=== PATIENT | male | born 1935 | race Caucasian/White ===

== ENCOUNTER → 2016-08-30 | Outpatient (CLI) | payer OTHER ==
[~2016-08-30] MED LIST: ASPI81TA28 PO; CLC/300 PO; COEN75CA PO; FOLI1TAB8 PO; LATA0.009 OPB; LATA0.5S OP; OMEG10007 PO; SACC250C3 PO; SIMV20TA2 PO; TPRSR/25 PO; ZINC1CAP PO
[2016-08-30 14:00] LABS: BLOOD UREA NITROGEN 22 mg/dl (7-18); BUN/CREATININE RATIO 22.4 (10-20); CREATININE 0.96 mg/dl (0.60-1.40)
== END | disposition home or self-care (01) ==
LOC: C.LAB1850 12:26
PROVIDERS: ATTEND Urology
DX: N41.9 Inflammatory disease of prostate, unspecified (principal); R31.9 Hematuria, unspecified

== ENCOUNTER → 2016-09-06 | Outpatient (CLI) | payer OTHER ==
[~2016-09-06] MED LIST changes: +FOLI1TAB7 PO; -FOLI1TAB8 PO; +OPTIRAY 320 IV PRN
--- NOTE | 2016-09-06 11:46 | DIAGNOSTIC IMAGING REPORT ---
CT ABD/PELVIS COMBO CLINICAL HISTORY: Hematuria. COMPARISON STUDY: None. TECHNIQUE: Unenhanced images were obtained through the abdomen and pelvis. The patient was then injected with 50 cc of Optiray 320. After 5 minute delay, the patient is rescanned in a dynamic helical fashion during the additional administration of 67 cc of Optiray 320. CT DOSE: 873.25 mGy.cm FINDINGS: Lower chest: There is minor lower lobe cylindrical bronchiectasis. There are bibasal atelectatic changes. Liver: The contrast-enhanced liver is normal in size, contour, and attenuation. There is no intrahepatic biliary ductal dilatation. The hepatic veins and portal veins are patent. Gallbladder: Unremarkable. Spleen: Normal in size and attenuation. Pancreas: Unremarkable. Adrenal glands: Unremarkable. Kidneys: There are multiple parapelvic cysts. There are multiple cortical cysts, the largest of which on the right measures 27 mm. There is a 13 mm hyperdense upper pole left renal cyst. There is an 11 mm enhancing upper pole left renal mass. This may be neoplastic. There is a 14 mm exophytic enhancing mass arising from the lower pole the left kidney. A small neoplasm is again the diagnosis of exclusion. No renal calculi are visualized. No ureteral or bladder calculi are visualized. The collecting systems are distorted by the parapelvic cysts. No collecting system or ureteral masses are visualized. Bowel: There are no transition zone to indicate bowel obstruction. There is no evidence of acute diverticulitis. There is no evidence of acute appendicitis. Peritoneum: There is no intraperitoneal free air or abdominal ascites. There are postsurgical changes are prior right inguinal hernia repair. Vasculature: The abdominal aorta is normal in course and caliber. Adenopathy: None. Pelvic viscera: The prostate is enlarged measuring 58 mm in diameter. The bladder was contracted the time of scanning. There is a lobulated median lobe of the prostate indenting the bladder base. Skeletal structures: No destructive osseous lesions are seen. IMPRESSION: 1. No renal, ureteral, or bladder calculi identified 2. Multiple renal cysts and parapelvic cysts 3. There are 2 solid enhancing left renal masses. A 13 mm upper pole mass and 14 mm lower pole mass. Small neoplasms are suspected 4. Prostate enlargement Electronically signed by: Lee Carrillo M.D. 09/06/2016 11:44 AM Dictated Date/Time: 09/06/2016 11:32 AM
== END | disposition home or self-care (01) ==
LOC: C.CTS 10:45
PROVIDERS: ATTEND Urology
DX: R31.9 Hematuria, unspecified (principal); N28.1 Cyst of kidney, acquired; N28.89 Other specified disorders of kidney and ureter; N40.0 Benign prostatic hyperplasia without lower urinary tract symptoms

== ENCOUNTER → 2017-04-04 | Outpatient (CLI) | payer OTHER ==
[~2017-04-04] MED LIST changes: -OPTIRAY 320 IV PRN
[2017-04-04 17:00] LABS: BLOOD UREA NITROGEN 20 mg/dl (7-18); BUN/CREATININE RATIO 16.7 (10-20)
== END | disposition home or self-care (01) ==
LOC: C.LAB 16:02
PROVIDERS: ATTEND Urology
DX: R97.20 Elevated prostate specific antigen [PSA] (principal); N28.89 Other specified disorders of kidney and ureter

== ENCOUNTER → 2017-04-18 | Outpatient (CLI) | payer OTHER ==
[~2017-04-18] MED LIST changes: +OPTIRAY 320 IV PRN
--- NOTE | 2017-04-18 09:39 | DIAGNOSTIC IMAGING REPORT ---
KIDNEY (ABDOMEN) COMBO CLINICAL HISTORY: 81 years-old Male presenting with solid enhancing left renal masses at the upper and lower poles, follow-up. TECHNIQUE: Multidetector CT of the abdomen was performed before and after administration of intravenous contrast. Oral contrast was also administered. IV contrast: 94 mL of Optiray 320. A dose lowering technique was used consistent with the principles of ALARA (as low as reasonably achievable). COMPARISON: 09/16/2016. CT DOSE (mGy.cm): The estimated cumulative dose is 2238.29 mGycm. 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 Lung bases: Dependent changes likely atelectasis. Few pulmonary cyst noted right lower lobe mild multichamber enlargement of the heart. Coronary artery calcification. No pericardial or pleural effusion. Liver: Normal morphology. Normal density. Hypodense lesion in the gallbladder fossa measuring approximately 1 cm is not apparent on delayed imaging, likely suggesting a benign hemangioma. Patent hepatic vasculature. Biliary: No intrahepatic or extrahepatic biliary ductal dilatation. Normal gallbladder. Pancreas: 6 mm hypodense lesion in the pancreatic head may represent focal fatty invagination or small cystic lesion such as a mucinous cyst or side branch intraductal papillary mucinous neoplasm. No pancreatic ductal dilatation. Spleen: Normal. Adrenal glands: Normal. Kidneys and ureters: Multiple well-defined hypodensities in the renal parenchyma bilaterally likely simple cysts. Additionally, previously noted suspicious left renal lesions again visualized. At the left upper pole a 15 mm lesion is mildly hyperdense on precontrast imaging and may minimally enhance postcontrast. More significantly at the medial aspect of the lower pole is a slightly exophytic 14 mm lesion with convincing evidence of enhancement and washout on delayed postcontrast phases. Neither of these lesions has significantly changed in size since the prior exam. No vascular invasion or perinephric infiltration. Multiple left parapelvic cysts noted. No nephrolithiasis. No filling defect within the collecting systems. No hydronephrosis. Gastrointestinal tract: Normal. No bowel obstruction. Peritoneal cavity: No free fluid or intraperitoneal gas. Vasculature: Atherosclerosis of the normal caliber abdominal aorta. IVC patent. Lymph nodes: Multiple subcentimeter nonspecific prominent nodes in the portacaval region. Few subcentimeter left periaortic lymph nodes. These lymph nodes are not pathologically enlarged by CT size criteria. Abdominal wall: Normal. Musculoskeletal: Degenerative changes of the spine. IMPRESSION: 1. Two previous identified left renal lesions, at least one of which represents a solid enhancing neoplasm most concerning for renal cell carcinoma at the lower pole of the left kidney. This is unchanged in size from prior. Continued surveillance versus surgical consultation recommended. The upper pole left renal lesion is mildly hyperdense on precontrast imaging and has questionable enhancement. Alternative diagnostic considerations include a hemorrhagic or proteinaceous cyst for this lesion. 2. No pathologically enlarged lymph nodes by CT size criteria. Electronically signed by: Ulises Padilla M.D. 04/18/2017 9:38 AM Dictated Date/Time: 04/18/2017 9:28 AM
== END | disposition home or self-care (01) ==
LOC: C.CTS 08:49
PROVIDERS: ATTEND Urology
DX: D41.02 Neoplasm of uncertain behavior of left kidney (principal); I70.0 Atherosclerosis of aorta

== ENCOUNTER 2017-06-02 09:15 | Emergency (ER) | payer OTHER ==
[~2017-06-02] VITALS: Ht 182.9 cm; Wt 85.0 kg
[~2017-06-02 09:15] MED LIST changes: -CLC/300 PO; -LATA0.5S OP; -OPTIRAY 320 IV PRN; -SACC250C3 PO
[2017-06-02 09:25] VITALS: TEMP 36.5; Ht 182.9 cm; Wt 85.0 kg
[2017-06-02] MEDS ORDERED: LATA0.5S OP (09:30)
--- NOTE | 2017-06-02 09:49 | EMERGENCY ROOM VISIT NOTE ---
History Report prepared by Porter: John Alvarez Under the Supervision of: Dr. Jorgito Brenner M.D. First contact with patient: 09:35 Chief Complaint: FINGER PAIN Stated Complaint: INDEX FINGER LEFT HAND History of Present Illness The patient is a 81 year old male who presents to the Emergency Room with complaints of worsening left index finger pain that began 2.5 months ago. At this time, the patient had an injury to this finger from what he believes to be a thorn. He was seen by an orthopedist 1 month ago due to persistent symptoms and was placed on antibiotics. Since then, he notes a red protrusion from the wound site. Since last week, his protrusion has become bigger. He notes some bleeding intermittently from the site as well based on if he uses the finger or not. He denies any other abnormal symptoms such as f/c, fatigue, n/v, CP, Sob,. He has been covering it during the day, and letting it breathe over night. However, since the protrusion has gotten worse, he has been covering it constantly. He denies any blood thinner use. He only takes a baby aspirin. Source of History: patient Onset: 2.5 months ago Position: finger(s) (left index finger) Symptom Intensity: moderate Quality: other (Red protrusion) Timing: worsening Associated Symptoms: No fevers, No chills, No cough, No nausea, No vomiting , No rash Review of Systems See HPI for pertinent positives and negatives. A total of ten systems were reviewed and were otherwise negative. Past Medical & Surgical Medical Problems: (1) No Known Active Medical Problems Family History Omitted secondary to the patient's age. Social History Smoking Status: Never Smoker Smokeless Tobacco Use: No Drug Use: none Marital Status: Housing Status: lives with significant other Occupation Status: retired Current/Historical Medications Scheduled Aspirin (Aspirin Ec), 81 MG PO QAM Clindamycin HCl (Clindamycin HCl), 2 CAP PO TID Fish Oil (Magnolia-3), 1 CAP PO QAM Folic Acid (Folvite), 1 MG PO QAM Latanoprost (Xalatan 0.005% Oph Jesusita), 1 DROPS OP HS Metoprolol Succinate (Metoprolol Succinate ER), 25 MG PO QAM Saccharomyces Boulardii (Florastor), 1 CAP PO BID Simvastatin (Zocor), 20 MG PO QPM Zinc Sulfate (Zinc Sulfate), 220 MG PO DAILY Allergies Coded Allergies: Bacitracin (Verified Allergy, Intermediate, RASH, 06/02/17) Neomycin (Verified Allergy, Intermediate, RASH, 06/02/17) Polymyxin B (Verified Allergy, Intermediate, RASH, 06/02/17) Physical Exam Vital Signs Date Time Temp Pulse Resp B/P (MAP) Pulse Ox O2 Delivery O2 Flow Rate FiO2 06/02/17 13:30 67 16 138/81 98 06/02/17 11:07 61 16 142/82 98 Room Air 06/02/17 09:25 36.5 70 16 140/91 97 Room Air Physical Exam GENERAL: Awake, alert, well-appearing, in no distress HENT: Normocephalic, atraumatic. Oropharynx unremarkable. EYES: Normal conjunctiva. Sclera non-icteric. NECK: Supple. No nuchal rigidity. FROM. No JVD. RESPIRATORY: Clear to auscultation. CARDIAC: Regular rate, normal rhythm. Extremities warm and well perfused. Pulses equal. ABDOMEN: Soft, non-distended. No tenderness to palpation. No rebound or guarding. No masses. RECTAL: Deferred. MUSCULOSKELETAL: Chest examination reveals no tenderness. The back is symmetrical on inspection without obvious abnormality. There is no CVA tenderness to palpation. No joint edema. UPPER EXTREMITIES: The left 2nd mid-phalanx has a 1 cm herniation of granulation tissue volar surface. There is no surrounding erythema, warmth, purulent discharge, or crepitus. Full ROM. Capillary refill is brisk. Distal motor sensory is intact. LOWER EXTREMITIES: Calves are equal size bilaterally and non-tender. No edema. No discoloration. NEURO: Normal sensorium. No sensory or motor deficits noted. SKIN: No rash or jaundice noted. Medical Decision & Procedures ER Provider Diagnostic Interpretation: Radiology results as stated below per my review and radiologist interpretation: LEFT SECOND FINGER RADIOGRAPHS CLINICAL HISTORY: Redness swelling, evaluate for osseous involvement. COMPARISON: None FINDINGS: There is mild soft tissue swelling with apparent soft tissue nodule of the second finger at the level of the mid aspect of the proximal phalanx. There is subtle cortical irregularity and lucency within the medial cortex of the mid to distal shaft of the proximal phalanx of the left second finger. There is no soft tissue gas. IMPRESSION: Soft tissue swelling with soft tissue nodule of the left second digit with apparent associated cortical irregularity and lucency of the proximal phalanx. The findings suggest osseous involvement. An infectious process such as osteomyelitis is favored although a neoplastic process could appear similar. Electronically signed by: Byron Sutton M.D. 06/02/2017 11:09 AM Dictated Date/Time: 06/02/2017 11:04 AM ED Course 0935: The patient was evaluated in room B10. A complete history and physical exam was performed. 1038: I will be calling orthopedics to discuss the case with them further. 1200: Orthopedics has still not returned my call, I will attempt to contact dermatology. 1300: I was successful in obtaining an appointment for the patient on Monday with dermatology. 1328: I discussed the patient's results with him and his at this time. I explained that the radiology study showed bony involvement of his finger. I explained that there are no signs of infection, but to cover all of our bases, I will prescribe him an antibiotic. He will take that until a formal diagnosis can be obtained. Throughout the patient's evaluation his gradually became more displeased. I attempted to explain our delays with speaking to consultants today and getting a plan together. I encouraged her to contact the hospital patient advocate if she would like to complain and she thinks she will do this. I highlighted that we have an effective plan in place, which includes prompt dermatology f/u. I further discussed return instructions for the development of any infectious sx, and also explained that upon further evaluation, including biopsy, the patient may be scheduled for a surgical procedure given the bony involvement. 1330: I reevaluated the patient. Discussed results and discharge instructions: He verbalized understanding and agreement. The patient is ready for discharge. Medical Decision I reviewed the patient's past medical history, medications, and the nursing notes as described above. Differential diagnoses include cellulitis, abscess, granulation tissue, and osteomyelitis. Patient is an 81-year-old gentleman with a past nuchal history of a recent finger infection after being stuck by a foreign 2.5 months ago seen by you [facility] one month ago and was given a course of antibiotics with some improvement however shortly thereafter developed a tissue lesion that has grown over the past month for history of present illness. In arrival the patient is well- appearing, in no acute distress, afebrile stable vital signs. Patient reports that they had an appointment scheduled for Monday with [facility] was canceled so comes to the emergency department. Patient on his left second phalanx on the volar surface of the mid phalanx has a 0.5 cm herniation of tissue consistent with granulation tissue/granuloma with no surrounding erythema warmth, discharge , crepitus concerning for infection at this time. FROM intact. [facility] ortho paged to discuss case and close f/u but we were unsuccessful in contact. Patient and were updated regarding delay. Subsequently, family updated that Dermatology was paged and at this time they clarified that while their appointment with [facility] was canceled they were able to still reschedule another appointment for Monday afterall. In the I d/w derm, Dr. Chambers, and they will be able to see the patient on Monday for likely excision/biopsy, family updated. At this time patient's xray report was reviewed and description of osseous involvement appreciated with ddx of osteo vs malignancy. Given the patient's clinical well-appearance without any systemic systems or stigmata of infection no indication for labs at this time; suspicion is low for infectious process at this time. However, until diagnosis can be confirmed with biopsy with empirically treat with clindamycin. Patient and updated. expressing displeasure with delay in finalizing plan. I apologized for the delay and encouraged her to call patient advocacy to express her concerns. Findings and plan for follow-up reviewed with patient including f/u with derm for skin changes and ortho for bone involvement. D/c'd per discharge instructions. Medication Reconcilliation Current Medication List: was personally reviewed by me Blood Pressure Screening Patient's blood pressure: Elevated blood pressure Blood pressure disposition: Elevated BP felt to be situational Impression Primary Impression: Pyogenic granuloma of skin Additional Impression: Finger lesion Scribe Attestation The scribe's documentation has been prepared under my direction and personally reviewed by me in its entirety. I confirm that the note above accurately reflects all work, treatment, procedures, and medical decision making performed by me. Departure Information Dispostion Home / Self-Care Prescriptions Saccharomyces Boulardii (Florastor) 250 Mg Cap 1 CAP PO BID for 10 Days, #20 CAP Prov: Jorgito Brenner M.D. 06/02/17 Clindamycin HCl (Clindamycin HCl) 300 Mg Cap 2 CAP PO TID for 7 Days, #42 CAP Prov: Jorgito Brenner M.D. 06/02/17 Referrals Jose Enrique Vincent M.D. (PCP) Forms HOME CARE DOCUMENTATION FORM, IMPORTANT VISIT INFORMATION, WORK / SCHOOL INSTRUCTIONS Patient Instructions ED Granuloma Pyogenic, My [facility] Additional Instructions Please follow up with dermatology on Monday as well as with orthopedics as you have scheduled on Monday for re-evaluation and likely excision and or biopsy. Your Xray shows bony involvement related to your skin lesion. Your exam and xray findings can be consistent with granuloma, cancer, or infection. Given you have no other signs of infection, infection is less likely. However, until you have a confirmatory biopsy we will start you on an antibiotic. Otherwise, your exam did not show signs of an emergent condition at this time. Return to the emergency department for worsening symptoms as described in the accompanying instructions. Problem Qualifiers
--- NOTE | 2017-06-02 11:10 | DIAGNOSTIC IMAGING REPORT ---
LEFT SECOND FINGER RADIOGRAPHS CLINICAL HISTORY: Redness swelling, evaluate for osseous involvement. COMPARISON: None FINDINGS: There is mild soft tissue swelling with apparent soft tissue nodule of the second finger at the level of the mid aspect of the proximal phalanx. There is subtle cortical irregularity and lucency within the medial cortex of the mid to distal shaft of the proximal phalanx of the left second finger. There is no soft tissue gas. IMPRESSION: Soft tissue swelling with soft tissue nodule of the left second digit with apparent associated cortical irregularity and lucency of the proximal phalanx. The findings suggest osseous involvement. An infectious process such as osteomyelitis is favored although a neoplastic process could appear similar. Electronically signed by: Byron Sutton M.D. 06/02/2017 11:09 AM Dictated Date/Time: 06/02/2017 11:04 AM
[2017-06-02] MEDS ORDERED: SACC250C3 PO (13:16)
[2017-06-02] MEDS ORDERED: CLC/300 PO (13:16)
[2017-06-02 13:30] VITALS: BP 138/81; PULSE 67; O2SAT 98
== END 2017-06-02 13:32 | disposition home or self-care (01) ==
LOC: C.EDB 09:16
DX: L98.0 Pyogenic granuloma (principal); L98.9 Disorder of the skin and subcutaneous tissue, unspecified; Z79.82 Long term (current) use of aspirin

== ENCOUNTER → 2017-10-05 | Outpatient (CLI) | payer OTHER ==
[~2017-10-05] MED LIST changes: -COEN75CA PO; -FOLI1TAB7 PO; +FOLI1TAB8 PO; -LATA0.009 OPB; +LATA0.5S OP
[2017-10-05 14:17] LABS: BLOOD UREA NITROGEN 16 mg/dl (7-18); CREATININE 0.85 mg/dl (0.60-1.40)
== END | disposition home or self-care (01) ==
LOC: C.LAB 12:16
PROVIDERS: ATTEND Urology
DX: N28.89 Other specified disorders of kidney and ureter (principal)

== ENCOUNTER → 2017-10-16 | Outpatient (CLI) | payer OTHER ==
[~2017-10-16] MED LIST changes: +OPTIRAY 320 IV PRN
--- NOTE | 2017-10-16 11:54 | DIAGNOSTIC IMAGING REPORT ---
CT ABDOMEN COMBO CT DOSE: 1573.23 mGycm CLINICAL HISTORY: N28.89 renal sophia TECHNIQUE: Unenhanced images were obtained to the upper abdomen. The patient was then scanned in a dynamic helical fashion during intravenous administration of 94 cc Optiray 320. Portal phase and 5 minute delayed images were acquired. A dose lowering technique was utilized adhering to the principles of ALARA. COMPARISON STUDY: March 2017 FINDINGS: The visualized portions of the lung bases reveal mild cardiomegaly. There are right lower lobe cylindrical bronchiectatic changes present. There is mild hepatic steatosis. There is a stable very subtle 9 mm hypodensity adjacent to the gallbladder fossa. There is a second to small to characterize 6 mm hypodensity within the right hepatic lobe. No splenic masses are visualized. No pancreatic masses are visualized. No adrenal masses are visualized. There is no evidence of abdominal aortic aneurysm. Para-aortic lymph nodes the upper limits of normal in size remain similar to the preceding examination. There are multiple bilateral renal cysts and parapelvic cysts. In addition, there is a stable exophytic 13 mm left renal mass arising from the medial aspect of the lower pole. This is suspicious for a solid renal neoplasm. There is a stable 14 mm exophytic lesion arising from the upper pole of the left kidney. This is hyperdense on noncontrast images and reveals no enhancement. This likely represents a hyperdense cyst. IMPRESSION: 1. Stable 13 mm solid enhancing exophytic left renal mass suspicious for a solid renal neoplasm 2. The 14 mm exophytic lesion arising from the upper pole the left kidney reveals no contrast enhancement and likely represents a hyperdense cyst. 3. Mildly prominent para-aortic lymph nodes remain unchanged Electronically signed by: Lee Carrillo M.D. 10/16/2017 11:53 AM Dictated Date/Time: 10/16/2017 11:40 AM
== END | disposition home or self-care (01) ==
LOC: C.CTS 10:59
PROVIDERS: ATTEND Urology
DX: N28.89 Other specified disorders of kidney and ureter (principal)

== ENCOUNTER 2017-11-28 12:13 | Day surgery (SDC) | payer OTHER ==
[2017-11-15 14:05] VITALS: BMI 27.0
--- NOTE | 2017-11-15 14:44 | PAT Medication Instructions ---
Service Date Nov 15, 2017. Current Home Medication List Aspirin (Aspirin Ec), 81 MG PO QAM Coenzyme Q10 (Ubidecarenone) (Coq10), Unknown Dose PO QAM Fish Oil (Colton-3), 1 CAP PO QAM Folic Acid (Folvite), 1 MG PO QAM Latanoprost (Xalatan 0.005% Oph Jesusita), 1 DROPS OP HS Metoprolol Succinate (Metoprolol Succinate ER), 25 MG PO QAM Nutritional Supplements (Fruit & Vegetable Daily), 1 CAP PO QAM Simvastatin (Zocor), 20 MG PO QPM Zinc Sulfate (Zinc Sulfate), 220 MG PO QAM Medication Instructions For Your Scheduled Surgery -Follow your surgeon's instructions for: Aspirin (Aspirin Ec), 81 MG PO QAM - Hold the following medications 2 weeks prior to surgery: Coenzyme Q10 (Ubidecarenone) (Coq10), Unknown Dose PO QAM Fish Oil (Colton-3), 1 CAP PO QAM - Hold the following medications the morning of surgery: Folic Acid (Folvite), 1 MG PO QAM Nutritional Supplements (Fruit & Vegetable Daily), 1 CAP PO QAM Zinc Sulfate (Zinc Sulfate), 220 MG PO QAM - Take the following medications the morning of surgery with a sip of water: Metoprolol Succinate (Metoprolol Succinate ER), 25 MG PO QAM - Take the following medications as scheduled the night before surgery: Latanoprost (Xalatan 0.005% Oph Jesusita), 1 DROPS OP HS Simvastatin (Zocor), 20 MG PO QPM If you have any questions please call us at [phone] or [phone] or [phone]
[2017-11-15 15:24] LABS: BASO % 0.6 %; BASO ABS # 0.04 K/uL (0-0.2); EOS % 1.7 %; EOS ABS # 0.11 K/uL (0-0.5); HEMOGLOBIN 14.7 g/dL (14.0-18.0); IG# 0.01 K/uL (0.00-0.02); LYMPH % 27.1 %; LYMPH ABS # 1.75 K/uL (1.2-3.4); MEAN CELL VOLUME 90.7 fL (80-100); MEAN CORPUSCULAR HGB CONC 34.2 g/dl (32-36); MEAN PLATELET VOLUME 10.1 fL (7.4-10.4); MONO % 10.4 %; MONO ABS # 0.67 K/uL (0.11-0.59); NEUT ABS # 3.88 K/uL (1.4-6.5); PLATELET COUNT 170 K/uL (130-400); RED CELL DISTRIBUTION WIDTH CV 13.6 % (11.5-14.5); RED CELL DISTRIBUTION WIDTH SD 44.6 fL (36.4-46.3); WHITE BLOOD COUNT 6.46 K/uL (4.8-10.8)
--- NOTE | 2017-11-15 15:24 | DIAGNOSTIC IMAGING REPORT ---
CHEST 2 VIEWS ROUTINE CLINICAL HISTORY: Preoperative chest COMPARISON STUDY: No previous studies for comparison. FINDINGS: The heart is the upper limits of normal in size. There is aortic tortuosity/ectasia. There is no failure. There is no focal pulmonary consolidation. There are old right-sided rib deformities. There is trace right pleural fluid/thickening.[ IMPRESSION: 1. Old right-sided rib deformities 2. Trace right pleural fluid/thickening. 3. No evidence of failure. No evidence of focal pulmonary consolidation. Electronically signed by: Lee Carrillo M.D. 11/15/2017 3:23 PM Dictated Date/Time: 11/15/2017 3:22 PM
[2017-11-15 15:32] LABS: CALCIUM 8.7 mg/dl (8.5-10.1); CREATININE 0.78 mg/dl (0.60-1.40); POTASSIUM 4.5 mmol/L (3.5-5.1)
[~2017-11-28] VITALS: Ht 182.9 cm; Wt 84.0 kg
[~2017-11-28 12:13] MED LIST changes: +ATROPINE SULFATE 0.1 MG/ML 5ML SYR IV PRN; +CIPROFLOXACIN / D5W 400 MG IV SCH; +COEN30CA6 PO; +EpHEDrine SULFATE INJ 50 MG/ML AMP IV PRN; +FENTANYL CITRATE INJ 50 MCG/1 ML 2 ML VIAL IV PRN; +LACTATED RINGER'S 1000ML 1,000 ML IV SCH; +NUTRCAP5 PO; -OPTIRAY 320 IV PRN
[2017-11-28 12:43] VITALS: BP 162/80; PULSE 64; TEMP 36.4; O2SAT 98; Ht 182.9 cm; Wt 84.0 kg
--- NOTE | 2017-11-28 14:18 | History & Physical Bridge Note ---
H&P Re-Evaluation Bridge Note: I have examined the patient, reviewed the History & Physical and in the interval since the performance of the History & Physical I have noted the following changes of clinical significance: No changes noted
[2017-11-28] MEDS ORDERED: PROPOFOL IV EMULSION 10 MG/ML 20 ML VIAL IV ONE ×3 (14:35→15:09)
[2017-11-28] MEDS ORDERED: LIDOCAINE HCL 2% 2 ML VIAL (20MG/ML) ONE (14:35)
[2017-11-28] MEDS ORDERED: FENTANYL CITRATE INJ 50 MCG/1 ML 2 ML VIAL ONE (14:35)
[2017-11-28] MEDS ORDERED: KETAMINE HCL INJ 50 MG/ML 10 ML VIAL ONE (14:49)
--- NOTE | 2017-11-28 15:24 | [facility] Post Operative Brief Note ---
Immediate Operative Summary Operative Date Nov 28, 2017. Pre-Operative Diagnosis BPH, Bladder Abnormality Post-Operative Diagnosis BPH, Hypervascularity Procedure(s) Performed Cystoscopy, Fulguration of bleeding vessels Surgeon Dr. Adkins Reversal Print Inspector Surgeon(s) none Estimated Blood Loss 25cc Findings Consistent with Post-Op Diagnosis Specimens None per surgeon Drains None Anesthesia Type MAC Disposition Accompanied Pt To Recover: no Disposition: Recovery Room / PACU
[2017-11-28 15:30] VITALS: BP 148/90; PULSE 77; TEMP 36.4; O2SAT 96
[2017-11-28] MEDS ORDERED: CIPR-255 PO (15:44)
[2017-11-28] MEDS ORDERED: SODIUM CHLORIDE 0.9% 1000ML 1,000 ML IV SCH (15:45)
[2017-11-28] MEDS ORDERED: ACETAMINOPHEN 325 MG TAB PO PRN (15:45)
[2017-11-28] MEDS ORDERED: HYDROCODONE/ACETAMIN 5/325MG TAB PO PRN ×2 (15:45)
--- NOTE | 2017-11-28 15:45 | Discharge Instructions ---
Discharge Instructions Date of Service Nov 28, 2017. Admission Reason for Admission: Telangiectasis/Abnormality In Bladder Discharge Discharge Diagnosis / Problem: BPH; hypervascularity of the bladder Discharge Goals Goal(s): Decrease discomfort, Improve function, Increase independence, Improve disease control, Prevent Disease Progression Activity Recommendations Activity Limitations: resume your previous activity Lifting Limitations: none Exercise/Sports Limitations: none May Resume Sexual Activity: when tolerated Shower/Bathe: no limitations Driving or Machine Use: resume 1 day after discharge . Current Hospital Diet Patient's current hospital diet: Discharge Diet Recommended Diet: Regular Diet Procedures Procedures Performed: Cystoscopy, Fulguration of bleeding vessels Pending Studies Studies pending at discharge: no Medical Emergencies . Who to Call and When: Medical Emergencies: If at any time you feel your situation is an emergency, please call 911 immediately. . Non-Emergent Contact Non-Emergency issues call your: Urologist Call Non-Emergent contact if: you have a fever, temperature is above 101.5, your pain is not controlled, your pain is worsening . . "Provider Documentation" section prepared by Jez Mcarthur. .
[2017-11-28 16:15] VITALS: BP 135/87; PULSE 80; TEMP 36.3; O2SAT 95
--- NOTE | 2017-11-28 16:17 | Anesthesiology Progress Note ---
Anesthesia Post Op Note Date & Time Nov 28, 2017 at 16:17 Vital Signs Pain Intensity: 0 Vital Signs Past 12 Hours Date Time Temp Pulse Resp B/P (MAP) Pulse Ox O2 Delivery O2 Flow Rate FiO2 11/28/17 15:30 36.4 77 18 148/90 96 Room Air 11/28/17 12:43 36.4 64 18 162/80 (107) 98 Room Air Notes Mental Status: alert / awake / arousable, participated in evaluation Pt Amnestic to Procedure: Yes Nausea / Vomiting: adequately controlled Pain: adequately controlled Airway Patency, RR, SpO2: stable & adequate BP & HR: stable & adequate Hydration State: stable & adequate Anesthetic Complications: no major complications apparent
--- NOTE | 2017-11-29 12:27 | [facility] Operative Report ---
Operative Report Operative Date Nov 29, 2017. Pre-Operative Diagnosis BPH, Bladder Abnormality Post-Operative Diagnosis BPH, Hypervascularity Procedure(s) Performed Cystoscopy, Fulguration of bleeding vessels Surgeon Dr. Adkins Patient Companion Surgeon(s) none Estimated Blood Loss 25cc Findings Extensive vasculature around his prostate/prostatic urethra/bladder neck Specimens None per surgeon Drains None Anesthesia Type MAC Complication(s) none Disposition no Recovery Room / PACU Description of Procedure The patient was identified in the preoperative holding area, appropriate informed consents reviewed and completed and the patient was transported to the operating suite. Upon arrival he received appropriate sedation as well as a preoperative dose of ciprofloxacin. Following sterile prep and drape I inserted a 22 Slovak cystoscope with 30 lens. Immediately upon entry into the prostate and bladder encountered red appearing urine and active bleeding. I withdrew the scope after several minutes of attempting to visualize the source of the bleeding without success. I exchanged this for a 27 Slovak resectoscope with 30 lens and visual obturator. Utilizing this scope, was able to better identify the source of bleeding which appeared to be from numerous veins at the bladder neck. I suspect that the simple active passing the scope caused these to the rupture and bleed. They bled extensively enough that I exchanged for a button electrode and cauterized the vessels of the prostatic urethra that were actively bleeding. This allowed full visualization of the prostatic urethra as well as the remaining aspects of the bladder. He has numerous clustered blood vessels on the surface of his prostate throughout as well as the bladder neck. Some of these are quite extensive. He additionally has small areas that comes pure consistent with vasculature on the bladder wall. Given the reaction of bleeding from simple insertion of the scope, I elected to avoid biopsies and I presume that these are simple telangiectasias/nests of vasculature. He had good hemostasis at the conclusion of my inspection I elected to leave him without a catheter. The scope was removed and the case was concluded. Of note , he has significant lateral lobe hypertrophy which I suspect contributes to the vasculature/hypervascularity. I believe he would be a very good candidate for TURP in the future if his voiding symptoms predicate such need. I attest to the content of the Intraoperative Record and any orders documented therein. Any exceptions are noted below.
== END 2017-11-28 16:20 | disposition home or self-care (01) ==
LOC: C.ACU 12:13
PROVIDERS: ATTEND Urology
DX: N32.89 Other specified disorders of bladder (principal); N40.1 Benign prostatic hyperplasia with lower urinary tract symptoms; N13.8 Other obstructive and reflux uropathy; N41.9 Inflammatory disease of prostate, unspecified; N28.89 Other specified disorders of kidney and ureter; F17.200 Nicotine dependence, unspecified, uncomplicated; E78.5 Hyperlipidemia, unspecified; I25.10 Atherosclerotic heart disease of native coronary artery without angina pectoris; H40.9 Unspecified glaucoma; H91.90 Unspecified hearing loss, unspecified ear; Z86.008 Personal history of in-situ neoplasm of other site; Z79.899 Other long term (current) drug therapy; Z79.82 Long term (current) use of aspirin

== ENCOUNTER → 2017-12-20 | Outpatient (CLI) | payer OTHER ==
[~2017-12-20] MED LIST changes: -ATROPINE SULFATE 0.1 MG/ML 5ML SYR IV PRN; +CIPR-255 PO; -CIPROFLOXACIN / D5W 400 MG IV SCH; -EpHEDrine SULFATE INJ 50 MG/ML AMP IV PRN; -FENTANYL CITRATE INJ 50 MCG/1 ML 2 ML VIAL IV PRN; -LACTATED RINGER'S 1000ML 1,000 ML IV SCH
[2017-12-20 12:25] LABS: BASO % 0.4 %; BASO ABS # 0.03 K/uL (0-0.2); EOS % 2.9 %; HEMATOCRIT 43.2 % (42-52); HEMOGLOBIN 14.3 g/dL (14.0-18.0); IG# 0.01 K/uL (0.00-0.02); LYMPH % 21.8 %; LYMPH ABS # 1.48 K/uL (1.2-3.4); MEAN CELL VOLUME 90.4 fL (80-100); MEAN CORPUSCULAR HEMOGLOBIN 29.9 pg (25-34); MEAN CORPUSCULAR HGB CONC 33.1 g/dl (32-36); MEAN PLATELET VOLUME 9.5 fL (7.4-10.4); MONO % 11.5 %; MONO ABS # 0.78 K/uL (0.11-0.59); NEUT % 63.3 %; NEUT ABS # 4.29 K/uL (1.4-6.5); PLATELET COUNT 185 K/uL (130-400); RED CELL DISTRIBUTION WIDTH CV 13.8 % (11.5-14.5); RED CELL DISTRIBUTION WIDTH SD 45.4 fL (36.4-46.3); WHITE BLOOD COUNT 6.79 K/uL (4.8-10.8)
[2017-12-20 15:47] LABS: BLOOD UREA NITROGEN 17 mg/dl (7-18); CARBON DIOXIDE 30 mmol/L (21-32); CREATININE 0.95 mg/dl (0.60-1.40); GLUCOSE 70 mg/dl (70-99); POTASSIUM 4.4 mmol/L (3.5-5.1); SODIUM 142 mmol/L (136-145)
== END | disposition home or self-care (01) ==
LOC: C.LAB 11:29
PROVIDERS: ATTEND Urology
DX: N40.1 Benign prostatic hyperplasia with lower urinary tract symptoms (principal)

== ENCOUNTER 2018-01-02 10:43 | Observation (INO) | payer OTHER ==
[2017-12-21 14:50] VITALS: BMI 25.0
[~2018-01-02] VITALS: Ht 182.9 cm; Wt 84.1 kg
[2018-01-02] VITALS (7 sets, daily range): BP systolic 120–165; BP diastolic 66–87; PULSE 58–87; TEMP 36.3–37; O2SAT 93–98; Ht 182.9 cm; Wt 84.1 kg
[~2018-01-02 10:43] MED LIST changes: -CIPR-255 PO; +CIPROFLOXACIN / D5W 400 MG IV SCH; +CIPROFLOXACIN 400MG / D5W IV SCH; -COEN30CA6 PO; +LACTATED RINGER'S 1000ML 1,000 ML IV SCH
[2018-01-02] MEDS ORDERED: COEN1CAP28 PO (11:26)
[2018-01-02] MEDS ORDERED: FENTANYL CITRATE INJ 50 MCG/1 ML 2 ML VIAL ONE (11:49)
[2018-01-02] MEDS ORDERED: MIDAZOLAM HCL 1 MG/ML 2ML VIAL ONE (11:50)
[2018-01-02] MEDS ORDERED: PROPOFOL IV EMULSION 10 MG/ML 20 ML VIAL ONE (11:50)
[2018-01-02] MEDS ORDERED: LIDOCAINE HCL 2% 2 ML VIAL (20MG/ML) ONE (11:52)
[2018-01-02] MEDS ORDERED: PROMETHAZINE HCL INJ 6.25 MG in SODIUM CHLORIDE 0.9% 50ML 50 ML IV PRN (13:45)
[2018-01-02] MEDS ORDERED: ONDANSETRON INJ 2 MG/ML 2 ML VIAL IV PRN ×2 (13:45→15:30)
[2018-01-02] MEDS ORDERED: EpHEDrine SULFATE INJ 50 MG/ML AMP IV PRN (13:45)
[2018-01-02] MEDS ORDERED: ATROPINE SULFATE 0.1 MG/ML 5ML SYR IV PRN (13:45)
[2018-01-02] MEDS ORDERED: FENTANYL CITRATE INJ 50 MCG/1 ML 2 ML VIAL IV PRN (13:45)
--- NOTE | 2018-01-02 15:12 | [facility] Operative Report ---
Operative Report Operative Date January 02, 2018. Pre-Operative Diagnosis benign localized hyperplasia of the prostate Post-Operative Diagnosis benign localized hyperplasia of the prostate Procedure(s) Performed Transurethral Resection Prostate Surgeon Dr. Jose Enrique Adkins Model Maker Apprentice Surgeon(s) NA Estimated Blood Loss 25ml Specimens none per surgeon Drains 22 Arabic Winn Anesthesia Type General Complication(s) none Disposition yes Recovery Room / PACU Description of Procedure The patient was identified in the preoperative holding area, appropriate informed consents reviewed and completed and the patient was transported to the operating suite. Upon arrival he received appropriate preoperative antibiotics in the form of ciprofloxacin. Adequate general anesthesia was achieved, the patient was placed in dorsal lithotomy position where he was sterilely prepped and draped in standard fashion. I began the case by passing a 27 Arabic resectoscope with visual obturator and 30 lens. Inspection of the urethra revealed no evidence of stricture disease. His prostate was notably enlarged with significant lateral lobe hypertrophy high bladder neck. He has a very hypervascular appearance to his prostate. Inspection of the bladder revealed no evidence of tumors, he does have hypervascularity of the bladder wall as well. Ureteral orifices were in orthotopic position. Following my inspection, exchanged the visual obturator for resecting element, choosing a button electrode. I incised the bladder neck at 5 and 7:00 with care to avoid encroachment upon the ureteral orifices. I then flatten the bladder neck in the area between the 2 incisions. I progressed to the left lateral lobe followed by the right lateral lobe. At the conclusion of the case, the prostatic urethra was widely patent. Hemostasis was excellent, the scope was withdrawn and a 22 Arabic Winn catheter introduced without difficulty. The patient was subsequently extubated and taken to the PACU in stable condition. I attest to the content of the Intraoperative Record and any orders documented therein. Any exceptions are noted below.
[2018-01-02] MEDS ORDERED: ACETAMINOPHEN 325 MG TAB PO PRN (15:30)
[2018-01-02] MEDS ORDERED: ACETAMINOPHEN/CODEINE 300/30MG TAB PO PRN ×2 (15:30)
--- NOTE | 2018-01-02 15:50 | Anesthesiology Progress Note ---
Anesthesia Post Op Note Date & Time January 02, 2018 at 15:50 Vital Signs Pain Intensity: 0 Vital Signs Past 12 Hours Date Time Temp Pulse Resp B/P (MAP) Pulse Ox O2 Delivery O2 Flow Rate FiO2 01/02/18 15:45 60 15 138/83 94 Room Air 01/02/18 15:35 64 16 139/81 95 Room Air 01/02/18 15:25 63 14 138/79 92 Room Air 01/02/18 15:17 36.3 64 16 113/84 95 Room Air 01/02/18 11:06 36.5 58 18 142/82 (102) 96 Room Air Notes Mental Status: alert / awake / arousable, participated in evaluation Pt Amnestic to Procedure: Yes Nausea / Vomiting: adequately controlled Pain: adequately controlled Airway Patency, RR, SpO2: stable & adequate BP & HR: stable & adequate Hydration State: stable & adequate Anesthetic Complications: no major complications apparent
[2018-01-02] MEDS ORDERED: IV FLUIDS COMPLETED PRN (16:00)
[2018-01-02 16:25] LABS: BASO % 0.3 %; BASO ABS # 0.02 K/uL (0-0.2); EOS % 2.6 %; EOS ABS # 0.15 K/uL (0-0.5); HEMATOCRIT 40.5 % (42-52); HEMOGLOBIN 14.2 g/dL (14.0-18.0); IG# 0.02 K/uL (0.00-0.02); LYMPH % 19.8 %; LYMPH ABS # 1.16 K/uL (1.2-3.4); MEAN CELL VOLUME 88.6 fL (80-100); MEAN CORPUSCULAR HEMOGLOBIN 31.1 pg (25-34); MEAN PLATELET VOLUME 9.3 fL (7.4-10.4); MONO % 9.4 %; MONO ABS # 0.55 K/uL (0.11-0.59); NEUT % 67.6 %; NEUT ABS # 3.96 K/uL (1.4-6.5); PLATELET COUNT 158 K/uL (130-400); RED CELL DISTRIBUTION WIDTH CV 13.6 % (11.5-14.5); RED CELL DISTRIBUTION WIDTH SD 44.1 fL (36.4-46.3); WHITE BLOOD COUNT 5.86 K/uL (4.8-10.8)
[2018-01-02 16:28] LABS: MEAN CORPUSCULAR HGB CONC 35.1 g/dl (32-36)
[2018-01-02 16:45] LABS: CALCIUM 8.1 mg/dl (8.5-10.1); CREATININE 0.81 mg/dl (0.60-1.40); POTASSIUM 4.1 mmol/L (3.5-5.1)
[2018-01-02] MEDS: LACTATED RINGER'S 1000ML 1,000 ML IV SCH ×2 (18:00→21:17)
[2018-01-02] MEDS ORDERED: LATANOPROST 0.005% OP SOLN 2.5 ML BTL OP SCH (21:00)
[2018-01-02] MEDS ORDERED: SIMVASTATIN 20 MG TAB PO SCH (21:00)
[2018-01-02] MEDS ORDERED: NURSING VERBAL MED ORDER ONE (22:45)
[2018-01-03 03:30] VITALS: BP 151/80; PULSE 92; TEMP 37.2; O2SAT 94
[2018-01-03] MEDS: LACTATED RINGER'S 1000ML 1,000 ML IV SCH (05:23)
[2018-01-03 07:25] VITALS: BP 131/73; PULSE 76; TEMP 36.8; O2SAT 91
[2018-01-03] MEDS ORDERED: CIPR-255 PO (08:12)
[2018-01-03] MEDS ORDERED: PHEN95TA14 PO (08:12)
--- NOTE | 2018-01-03 08:13 | Discharge Instructions ---
Discharge Instructions Date of Service January 03, 2018. Admission Reason for Admission: Benign Localized Hyperplasia Of Prostate W/Urinary Discharge Discharge Diagnosis / Problem: BPH Discharge Goals Goal(s): Decrease discomfort, Improve function, Increase independence, Improve disease control, Prevent Disease Progression Activity Recommendations Activity Limitations: resume your previous activity Lifting Limitations: none, gradually increase as tolerated Exercise/Sports Limitations: none, gradually increase as tolerated May Resume Sexual Activity: when tolerated Shower/Bathe: no limitations Driving or Machine Use: no limitations . Instructions / Follow-Up Instructions / Follow-Up It is normal to have urgency, frequency, burning, and blood in your urine for 4- 6 weeks after this surgery. You may also experience a small amount of leakage either with the feeling that you need to urinate or dribbling a bit after completing urination. This will improve with time. Current Hospital Diet Patient's current hospital diet: Regular Diet Discharge Diet Recommended Diet: Regular Diet Procedures Procedures Performed: Transurethral Resection Prostate Pending Studies Studies pending at discharge: no Medical Emergencies . Who to Call and When: Medical Emergencies: If at any time you feel your situation is an emergency, please call 911 immediately. . Non-Emergent Contact Non-Emergency issues call your: Urologist Call Non-Emergent contact if: you have a fever, temperature is above 101.5, your pain is not controlled, your pain is worsening . . "Provider Documentation" section prepared by Jez Mcarthur. .
--- NOTE | 2018-01-03 08:23 | Progress Note ---
Progress Note Date of Service January 03, 2018. Progress Note No issues overnight, resting comfortably, no pain No apparent distress No respiratory issues Abdomen soft Urine clear in the tubing Labs pending Postoperative day #1 status post TURP Voiding trial Home after void
[2018-01-03 08:36] LABS: BASO % 0.3 %; BASO ABS # 0.02 K/uL (0-0.2); EOS % 1.5 %; EOS ABS # 0.12 K/uL (0-0.5); HEMATOCRIT 39.4 % (42-52); HEMOGLOBIN 13.6 g/dL (14.0-18.0); IG# 0.01 K/uL (0.00-0.02); LYMPH % 15.4 %; LYMPH ABS # 1.23 K/uL (1.2-3.4); MEAN CELL VOLUME 88.5 fL (80-100); MEAN CORPUSCULAR HEMOGLOBIN 30.6 pg (25-34); MEAN CORPUSCULAR HGB CONC 34.5 g/dl (32-36); MEAN PLATELET VOLUME 9.6 fL (7.4-10.4); MONO % 10.2 %; MONO ABS # 0.81 K/uL (0.11-0.59); NEUT % 72.5 %; NEUT ABS # 5.78 K/uL (1.4-6.5); PLATELET COUNT 165 K/uL (130-400); RED CELL DISTRIBUTION WIDTH CV 13.6 % (11.5-14.5); RED CELL DISTRIBUTION WIDTH SD 44.3 fL (36.4-46.3); WHITE BLOOD COUNT 7.97 K/uL (4.8-10.8)
[2018-01-03] MEDS ORDERED: METOPROLOL SUCC 25MG EXT REL TAB PO SCH (09:00)
[2018-01-03] MEDS ORDERED: ZINC SULFATE 220 MG CAP PO SCH (09:00)
[2018-01-03 09:09] LABS: CALCIUM 8.1 mg/dl (8.5-10.1); CREATININE 0.85 mg/dl (0.60-1.40)
[2018-01-03 10:35] VITALS: BP 131/73; PULSE 76; TEMP 36.8; O2SAT 91
--- NOTE | 2018-01-10 08:00 | Discharge Summary ---
Discharge Summary Date of Service January 10, 2018. Admission Date/Reason January 02, 2018 at 10:56 Benign Localized Hyperplasia Of Prostate W/Urinary. Discharge Date/Disposition January 03, 2018 Home Diagnosis Principal Diagnosis: BPH Procedure(s) Performed TURP Medication Reconciliation New Medications: Ciprofloxacin Hcl (Cipro) 500 Mg Tab 500 MG PO BID, #4 TAB Phenazopyridine Hcl (Azo Tabs) 95 Mg Tab 2 TABS PO Q8 for burning with urination, #30 Continued Medications: Aspirin (Aspirin Ec) 81 Mg Tab 81 MG PO QAM Coenzyme Q10 (Ubidecarenone) (Co Q10) 50 Mg Cap 1 CAP PO DAILY, CAP Fish Oil (Century-3) 1 Ea Cap 1 CAP PO QAM, CAP Folic Acid (Folvite) 1 Mg Tab 1 MG PO QAM, TAB Latanoprost (Xalatan 0.005% Oph Jesusita) 0.005 % Jesusita 1 DROPS OP HS Metoprolol Succinate (Metoprolol Succinate ER) 25 Mg Tabcr 25 MG PO QAM Nutritional Supplements (Fruit & Vegetable Daily) 1 Cap Cap 1 CAP PO QAM Simvastatin (Zocor) 20 Mg Tab 20 MG PO QPM, TAB Zinc Sulfate (Zinc Sulfate) 220 Mg Cap 220 MG PO QAM, CAP Admission Physical Exam As per Admitting History & Physical. Hospital Course Admitted for TURP - tolerated procedure very well - progressed appropriately overnight - passed a voiding trial on the morning of POD#1 - d/c home in stable condition Discharge Instructions Please refer to the electronic Patient Visit Report (Discharge Instructions) for additional information.
== END 2018-01-03 11:30 | disposition home or self-care (01) ==
LOC: C.ACU 10:43 → C.MSW 10:56 → ENRESERV 16:05
PROVIDERS: ADMIT Urology; ATTEND Urology
DX: N40.1 Benign prostatic hyperplasia with lower urinary tract symptoms (principal); N13.8 Other obstructive and reflux uropathy; R31.9 Hematuria, unspecified; I25.10 Atherosclerotic heart disease of native coronary artery without angina pectoris; I10 Essential (primary) hypertension; E78.5 Hyperlipidemia, unspecified; Z86.008 Personal history of in-situ neoplasm of other site; Z87.440 Personal history of urinary (tract) infections; Z79.82 Long term (current) use of aspirin; Z82.49 Family history of ischemic heart disease and other diseases of the circulatory system

== ENCOUNTER 2019-11-27 22:29 | Observation (INO) ==
--- NOTE | 2019-11-27 23:38 | Emergency Department Note ---
History of Present Illness General Chief complaint: Illness Stated complaint: COUGH, FEVER, CHILLS Time Seen by Provider: 11/27/19 23:06 Source: patient Mode of arrival: ambulatory Limitations: no limitations History of Present Illness Provider complaint: Cough, fevers Onset (ago): day(s) 4 Severity: moderate Relieved By: + none Exacerbated By: + none Associated symptoms: + cough, + fever/chills and + malaise; no rash, no shortness of breath and no syncope Treatments prior to arrival: none This is an 84-year-old male from home who presents with concerns for 4 days of dry cough and intermittent low-grade fevers. Patient states his fevers have been fluctuating between 99 and 100 over the last 4 days. Patient has had a dry nonproductive cough. No shortness of breath or chest pain. Patient states he has had a mild runny nose and sore throat, no sinus pain or pressure, headaches, or dizziness. Patient states he lives at home with his who has mild URI symptoms also. He states neither 1 of them have been out of the house in several weeks, no friends or relatives have been by to visit or to drop off supplies given the current pandemic. He states there is been no travel in the last month. Patient denies any history of asthma or COPD, denies tobacco abuse. Patient denies any recent change in his medications. Patient states he intermittently has had looser stools over the last week, no le diarrhea, no black or bloody stools. No change in urine. States he is still eating and drinking normally, no nausea or vomiting. Patient states he chronically has edema at his ankles and feet, it is unchanged, no worse. No calf tenderness. Pt seen during a time of high acuity and national emergency pandemic while wearing PPE. Home Medications Home Medications Medication Instructions Recorded Confirmed Type latanoprost 0.005 % eye drops 1 drops OP DAILY ml 02/26/19 11/27/19 History aspirin [Adult Low Dose Aspirin] 81 mg PO QAM 03/29/19 11/27/19 History coenzyme Q10 [Co Q-10] 50 mg PO QAM 03/29/19 11/27/19 History omega-3 fatty acids 1,000 mg PO QAM 03/29/19 11/27/19 History metoprolol succinate 25 mg 25 mg PO QAM #90 tab 06/20/19 11/27/19 Rx tablet,extended release 24 hr simvastatin 20 mg tablet 20 mg PO QPM #90 tab 06/20/19 11/27/19 Rx albuterol sulfate 2 puffs INH Q8H PRN #6.7 gm 11/29/19 Rx levofloxacin 500 mg PO DAILY 5 Days #5 tab 11/29/19 Rx prednisone 40 mg PO DAILY 3 Days #6 tab 11/29/19 Rx Allergies Allergy/AdvReac Type Severity Reaction Status Date / Time neomycin Allergy Intermediate RASH Verified 11/27/19 23:18 polymyxin B Allergy Intermediate RASH Verified 11/27/19 23:18 Past Med/Surg History Medical History Benign localized hyperplasia of prostate with urinary obstruction (Acute) CAD in [place] artery (Acute) Dilated aortic root (Acute) Elevated prostate specific antigen (PSA) (Acute) Glaucoma (Acute) bilt Hearing loss (Acute) Hyperlipidemia (Acute) Hypertension Palpitations (Acute) pt denies Prostatitis (Acute) Renal mass, left (Acute) Skin cancer unsure what kind Tubular adenoma of colon (Acute) Surgical History H/O right inguinal hernia repair (Acute) History of bladder surgery "to stretch bladder" History of foot surgery right foot great toe History of tooth extraction History of transurethral resection of prostate Family History Sister Cancer Mother Cardiac disorder Family history of reaction to anesthesia per pt his mother developed alzheimer's from an anesthesia drug Father Cardiac disorder Social History Preferred Language: [place] Communication Ability: Effective Loan Assistant Required: No Beliefs That Will Affect Care: None marital status: Current Living Situation: Spouse current occupational status: retired current occupation: [employer] Feels Safe at Home: Yes Smoking Status: Never smoker Second Hand Exposure: Yes ( smoked) ; Hx Alcohol Use: No Hx Substance Use: No during the past year weight has: remained stable Physical Activity Frequency: Daily Physical Activity Frequency Comment: Patient rides bicycle about 10 blocks every day. Seatbelt Use: always Review of Systems See HPI for pertinent positives & negatives. and A total of 10 systems reviewed and were otherwise negative Physical Exam Vital Signs Vital Signs - 24 hr 11/27/19 22:33 11/27/19 23:49 11/27/19 23:58 Temperature 37.6 C H 38.4 C H Temperature Source Oral Oral Pulse Rate 62 80 Pulse Rate from SpO2 Sensor 79 Pulse Rhythm Regular Pulse Strength Normal Respiratory Rate 20 24 Respiratory Effort / Characteristics Non-Labored Spontaneous Respiratory Depth Normal Blood Pressure 165/98 H 161/84 H Blood Pressure Mean 120 108 Pulse Oximetry 93 90 89 L Oxygen Delivery Method Room Air Room Air Room Air Oxygen Flow Rate Sepsis Recent Fever Within 48 Hours No Sepsis Action Taken by Nursing No Action Required 11/27/19 23:59 11/28/19 00:00 11/28/19 00:30 Temperature Temperature Source Pulse Rate 81 82 Pulse Rate from SpO2 Sensor 82 83 Pulse Rhythm Pulse Strength Respiratory Rate 25 H 24 Respiratory Effort / Characteristics Respiratory Depth Blood Pressure 156/89 H 132/76 Blood Pressure Mean 113 93 Pulse Oximetry 92 92 92 Oxygen Delivery Method Nasal Cannula Nasal Cannula Nasal Cannula Oxygen Flow Rate 2 2 2 Sepsis Recent Fever Within 48 Hours Sepsis Action Taken by Nursing 11/28/19 01:30 11/28/19 01:31 11/28/19 02:00 Temperature 37.6 C H Temperature Source Oral Pulse Rate 78 73 Pulse Rate from SpO2 Sensor 77 73 Pulse Rhythm Pulse Strength Respiratory Rate 23 25 H Respiratory Effort / Characteristics Respiratory Depth Blood Pressure 123/72 117/72 Blood Pressure Mean 82 82 Pulse Oximetry 92 92 Oxygen Delivery Method Nasal Cannula Nasal Cannula Oxygen Flow Rate 2 2 Sepsis Recent Fever Within 48 Hours Sepsis Action Taken by Nursing 11/28/19 02:30 11/28/19 03:00 11/28/19 03:01 Temperature Temperature Source Pulse Rate 72 68 73 Pulse Rate from SpO2 Sensor 71 69 68 Pulse Rhythm Pulse Strength Respiratory Rate 28 H 22 22 Respiratory Effort / Characteristics Respiratory Depth Blood Pressure 115/70 118/66 Blood Pressure Mean 75 74 Pulse Oximetry 93 94 95 Oxygen Delivery Method Nasal Cannula Oxygen Flow Rate 2 Sepsis Recent Fever Within 48 Hours Sepsis Action Taken by Nursing 11/28/19 03:30 11/28/19 03:31 Temperature Temperature Source Pulse Rate 72 70 Pulse Rate from SpO2 Sensor 71 70 Pulse Rhythm Pulse Strength Respiratory Rate 22 22 Respiratory Effort / Characteristics Respiratory Depth Blood Pressure 128/80 Blood Pressure Mean 88 Pulse Oximetry 95 94 Oxygen Delivery Method Oxygen Flow Rate Sepsis Recent Fever Within 48 Hours Sepsis Action Taken by Nursing GENERAL: alert, well appearing, well nourished, no distress, non-toxic EYE EXAM: normal conjunctiva, PERRL and EOM's grossly intact OROPHARYNX: no exudate, no erythema, lips, buccal mucosa, and tongue normal and mucous membranes are moist, no mucocutaneous lesions NECK: supple, no nuchal rigidity, no adenopathy, non-tender LUNGS: Clear to auscultation. Normal chest wall mechanics, no w/r/r HEART: no murmurs, S1 normal and S2 normal ABDOMEN: abdomen soft, non-tender, normo-active bowel sounds, no masses, no rebound or guarding. BACK: Back is symmetrical on inspection and there is no deformity, no midline tenderness, no CVA tenderness. SKIN: no rashes and no bruising, no petechiae UPPER EXTREMITIES: upper extremities are grossly normal. FROM, nml pulses b/l. LOWER EXTREMITIES: 2+ pedal pitting edema. FROM, nml pulses b/l. NEURO EXAM: Normal sensorium, cranial nerves II-XII grossly intact, normal speech, no gross weakness of arms, no gross weakness of legs. Gross sensation intact. Course Course 2354: Alerted by nursing staff patient now developed a fever to 38.4 C, and oxygen saturation was 89%. Patient now developing rigors. Administered Medications Discontinued Medications Albuterol (Duoneb) 3 ml NEB QIDR [facility] Stop: 12/28/19 06:59 Last Admin: 11/29/19 10:35 Dose: Not Given Documented by: [id number] Admin: 11/29/19 07:28 Dose: 3 ml Documented by: [id number] Admin: 11/28/19 19:18 Dose: 3 ml Documented by: [id number] Admin: 11/28/19 15:05 Dose: 3 ml Documented by: [id number] Admin: 11/28/19 11:14 Dose: 3 ml Documented by: [id number] Admin: 11/28/19 07:02 Dose: 3 ml Documented by: [id number] Aspirin (Ecotrin Ectab) 81 mg PO QAM [facility] Stop: 12/28/19 08:59 Last Admin: 11/29/19 07:54 Dose: 81 mg Documented by: [id number] Admin: 11/28/19 08:04 Dose: 81 mg Documented by: [id number] Budesonide (Pulmicort Respules) 0.5 mg NEB BIDR [facility] Stop: 12/28/19 06:59 Last Admin: 11/29/19 07:28 Dose: 0.5 mg Documented by: [id number] Admin: 11/28/19 19:18 Dose: 0.5 mg Documented by: [id number] Admin: 11/28/19 07:02 Dose: 0.5 mg Documented by: [id number] Fish Oil (Clayton-3 (Purified Fish Oil)) 1 gm PO QAM [facility] Stop: 12/28/19 08:59 Last Admin: 11/29/19 07:54 Dose: 1 gm Documented by: [id number] Admin: 11/28/19 08:04 Dose: 1 gm Documented by: [id number] Acetaminophen (Ofirmev) 1,000 mg in 100 mls @ 400 mls/hr IV NOW STA Stop: 11/28/19 00:08 Last Infusion: 11/28/19 00:30 Dose: 0 mls/hr Documented by: [id number] Admin: 11/28/19 00:08 Dose: 400 mls/hr Documented by: [id number] Ceftriaxone Sodium (Rocephin) 2,000 mg in 70 mls @ 140 mls/hr IV NOW STA Stop: 11/28/19 03:22 Last Infusion: 11/28/19 04:11 Dose: 0 mls/hr Documented by: [id number] Admin: 11/28/19 03:24 Dose: 140 mls/hr Documented by: [id number] Levofloxacin/Dextrose (Levaquin/D5w) 750 mg in 150 mls @ 100 mls/hr IV NOW STA Stop: 11/28/19 04:24 Last Infusion: 11/28/19 05:21 Dose: 0 mls/hr Documented by: [id number] Admin: 11/28/19 03:24 Dose: 100 mls/hr Documented by: [id number] Ceftriaxone Sodium 2,000 mg/ (Dextrose) 70 mls @ 100 mls/hr IV Q24H [facility]; Protocol Stop: 12/04/19 04:41 Last Infusion: 11/29/19 04:36 Dose: 0 mls/hr Documented by: [id number] Admin: 11/29/19 03:47 Dose: 100 mls/hr Documented by: [id number] Levofloxacin/Dextrose (Levaquin/D5w) 500 mg in 100 mls @ 100 mls/hr IV Q24H [facility] Stop: 12/04/19 03:59 Last Infusion: 11/29/19 03:47 Dose: 0 mls/hr Documented by: [id number] Admin: 11/29/19 02:43 Dose: 100 mls/hr Documented by: [id number] Methylprednisolone 20 mg/ (Syringe) 0.32 mls @ 1.5 mls/min IV Q8H [facility] Stop: 12/28/19 04:59 Last Admin: 11/28/19 05:09 Dose: 1.5 mls/min Documented by: [id number] Methylprednisolone 50 mg/ (Syringe) 0.8 mls @ 1.5 mls/min IV Q12 NOA Stop: 12/28/19 20:59 Last Admin: 11/29/19 07:53 Dose: 1.5 mls/min Documented by: [id number] Admin: 11/28/19 22:05 Dose: 1.5 mls/min Documented by: [id number] Sodium Chloride (Nss 1000ml) 1,000 mls @ 125 mls/hr IV .Q8H NOA Stop: 11/28/19 18:59 Last Infusion: 11/28/19 19:01 Dose: 0 mls/hr Documented by: [id number] Admin: 11/28/19 11:08 Dose: 125 mls/hr Documented by: [id number] Ioversol (Optiray 320 125ml) 125 ml IV ONCE PRN PRN Reason: Interaction Checking Stop: 12/02/19 01:29 Last Admin: 11/28/19 01:30 Dose: 118 ml Documented by: [id number] Latanoprost (Xalatan Oph) 1 drops OP HS NOA Stop: 12/28/19 20:59 Last Admin: 11/28/19 22:06 Dose: 1 drops Documented by: [id number] Metoprolol Succinate (Toprol Xl) 25 mg PO QAM NO[facility] Stop: 12/28/19 08:59 Last Admin: 11/29/19 07:54 Dose: 25 mg Documented by: [id number] Admin: 11/28/19 08:04 Dose: 25 mg Documented by: [id number] Simvastatin (Zocor) 20 mg PO QPM NO[facility] Stop: 12/28/19 20:59 Last Admin: 11/28/19 22:06 Dose: 20 mg Documented by: [id number] Medical Decision Making Differential Diagnosis Differential diagnosis: Etiologies such as viral syndrome, otitis, pharyngitis, pneumonia, influenza, meningitis, urinary tract infection, sepsis, bacteremia, as well as others were entertained. Medical Records Attestation: I reviewed the patient's medical records. Home Medications Current Medication List: was personally reviewed by me Laboratory Data Attestation: I reviewed the patient's lab results. Result diagrams: 11/27/19 23:50 11/27/19 23:50 Lab Results 11/27/19 11/27/19 11/27/19 Range/Units 23:39 23:50 23:50 WBC 6.82 (4.8-10.8) K/uL RBC 4.94 (4.7-6.1) M/uL Hgb 15.2 (14.0-18.0) g/dL Hct 44.4 (42-52) % MCV 89.9 (80-100) fL MCH 30.8 (25-34) pg MCHC 34.2 (32-36) g/dL RDW Std Deviation 45.2 (36.4-46.3) fL RDW Coeff of Dilcia 13.7 (11.5-14.5) % Plt Count 127 L (130-400) K/uL MPV 9.8 (7.4-10.4) fL Immature Gran % (Auto) 0.1 % Neut % (Auto) 74.9 % Lymph % (Auto) 15.1 % Ransom % (Auto) 9.8 % Eos % (Auto) 0.0 % Baso % (Auto) 0.1 % Immature Gran # (Auto) 0.01 (0.00-0.02) K/uL Neut # (Auto) 5.10 (1.4-6.5) K/uL Lymph # (Auto) 1.03 L (1.2-3.4) K/uL Ransom # (Auto) 0.67 H (0.11-0.59) K/uL Eos # (Auto) 0.00 (0-0.5) K/uL Baso # (Auto) 0.01 (0-0.2) K/uL D-Dimer (0-500) ug/L FEU Sodium 136 (136-145) mmol/L Potassium 4.2 (3.5-5.1) mmol/L Chloride 109 H (98-107) mmol/L Carbon Dioxide 25 (21-32) mmol/L Anion Gap 2.0 L (3-11) BUN 17 (7-18) mg/dl Creatinine 0.91 (0.6-1.4) mg/dl Est Cr Clr Drug Dosing 67.5 ml/min Est GFR ( Amer) 90.0 Est GFR (Non-Af Amer) 77.7 BUN/Creatinine Ratio 18.5 (10-20) Glucose 104 H (70-99) mg/dl Lactate (0.4-2.0) mmol/L Calcium 7.9 L (8.5-10.1) mg/dl Magnesium 2.1 (1.8-2.4) mg/dl Total Bilirubin 0.6 (0.2-1) mg/dl AST 120 H (15-37) U/L ALT 118 H (12-78) U/L Alkaline Phosphatase 68 (45-117) U/L Lactate Dehydrogenase (87-241) U/L Troponin I < 0.015 (0-0.045) ng/ml C-Reactive Protein 2.03 H (0-0.29) mg/dl NT-Pro-B Natriuret Pep 384 (0-1800) pg/ml Total Protein 6.5 (6.4-8.2) gm/dl Albumin 3.0 L (3.4-5.0) gm/dl Globulin 3.5 (2.5-4.0) gm/dl Albumin/Globulin Ratio 0.9 (0.9-2) Procalcitonin (0-0.5) ng/ml Adenovirus (PCR) (NotDetected) B. pertussis DNA (PCR) (NotDetected) B.parapertussis DNA PCR (NotDetected) C. pneumoniae DNA (PCR) (NotDetected) Coronavirus OC43 (PCR) (NotDetected) Coronavirus HKU1 (PCR) (NotDetected) Coronavirus 229E (PCR) (NotDetected) Coronavirus NL63 (PCR) (NotDetected) Human Metapneumovir PCR (NotDetected) Influenza Type A (PCR) Neg for Influ A (Neg) Influenza Type B (PCR) Neg for Influ B (Neg) M. pneumoniae (PCR) (NotDetected) Parainfluenza 1 (PCR) (NotDetected) Parainfluenza 2 (PCR) (NotDetected) Parainfluenza 3 (PCR) (NotDetected) Parainfluenza 4 (PCR) (NotDetected) RSV (PCR) (NotDetected) Entero/Rhino (PCR) (NotDetected) 11/27/19 11/27/19 11/27/19 Range/Units 23:50 23:50 23:50 WBC (4.8-10.8) K/uL RBC (4.7-6.1) M/uL Hgb (14.0-18.0) g/dL Hct (42-52) % MCV (80-100) fL MCH (25-34) pg MCHC (32-36) g/dL RDW Std Deviation (36.4-46.3) fL RDW Coeff of Dilcia (11.5-14.5) % Plt Count (130-400) K/uL MPV (7.4-10.4) fL Immature Gran % (Auto) % Neut % (Auto) % Lymph % (Auto) % Ransom % (Auto) % Eos % (Auto) % Baso % (Auto) % Immature Gran # (Auto) (0.00-0.02) K/uL Neut # (Auto) (1.4-6.5) K/uL Lymph # (Auto) (1.2-3.4) K/uL Ransom # (Auto) (0.11-0.59) K/uL Eos # (Auto) (0-0.5) K/uL Baso # (Auto) (0-0.2) K/uL D-Dimer 940 H* (0-500) ug/L FEU Sodium (136-145) mmol/L Potassium (3.5-5.1) mmol/L Chloride (98-107) mmol/L Carbon Dioxide (21-32) mmol/L Anion Gap (3-11) BUN (7-18) mg/dl Creatinine (0.6-1.4) mg/dl Est Cr Clr Drug Dosing ml/min Est GFR ( Amer) Est GFR (Non-Af Amer) BUN/Creatinine Ratio (10-20) Glucose (70-99) mg/dl Lactate (0.4-2.0) mmol/L Calcium (8.5-10.1) mg/dl Magnesium (1.8-2.4) mg/dl Total Bilirubin (0.2-1) mg/dl AST (15-37) U/L ALT (12-78) U/L Alkaline Phosphatase (45-117) U/L Lactate Dehydrogenase 330 H (87-241) U/L Troponin I (0-0.045) ng/ml C-Reactive Protein (0-0.29) mg/dl NT-Pro-B Natriuret Pep (0-1800) pg/ml Total Protein (6.4-8.2) gm/dl Albumin (3.4-5.0) gm/dl Globulin (2.5-4.0) gm/dl Albumin/Globulin Ratio (0.9-2) Procalcitonin 0.06 (0-0.5) ng/ml Adenovirus (PCR) (NotDetected) B. pertussis DNA (PCR) (NotDetected) B.parapertussis DNA PCR (NotDetected) C. pneumoniae DNA (PCR) (NotDetected) Coronavirus OC43 (PCR) (NotDetected) Coronavirus HKU1 (PCR) (NotDetected) Coronavirus 229E (PCR) (NotDetected) Coronavirus NL63 (PCR) (NotDetected) Human Metapneumovir PCR (NotDetected) Influenza Type A (PCR) (Neg) Influenza Type B (PCR) (Neg) M. pneumoniae (PCR) (NotDetected) Parainfluenza 1 (PCR) (NotDetected) Parainfluenza 2 (PCR) (NotDetected) Parainfluenza 3 (PCR) (NotDetected) Parainfluenza 4 (PCR) (NotDetected) RSV (PCR) (NotDetected) Entero/Rhino (PCR) (NotDetected) 11/28/19 11/28/19 Range/Units 00:20 02:17 WBC (4.8-10.8) K/uL RBC (4.7-6.1) M/uL Hgb (14.0-18.0) g/dL Hct (42-52) % MCV (80-100) fL MCH (25-34) pg MCHC (32-36) g/dL RDW Std Deviation (36.4-46.3) fL RDW Coeff of Dilcia (11.5-14.5) % Plt Count (130-400) K/uL MPV (7.4-10.4) fL Immature Gran % (Auto) % Neut % (Auto) % Lymph % (Auto) % Ransom % (Auto) % Eos % (Auto) % Baso % (Auto) % Immature Gran # (Auto) (0.00-0.02) K/uL Neut # (Auto) (1.4-6.5) K/uL Lymph # (Auto) (1.2-3.4) K/uL Ransom # (Auto) (0.11-0.59) K/uL Eos # (Auto) (0-0.5) K/uL Baso # (Auto) (0-0.2) K/uL D-Dimer (0-500) ug/L FEU Sodium (136-145) mmol/L Potassium (3.5-5.1) mmol/L Chloride (98-107) mmol/L Carbon Dioxide (21-32) mmol/L Anion Gap (3-11) BUN (7-18) mg/dl Creatinine (0.6-1.4) mg/dl Est Cr Clr Drug Dosing ml/min Est GFR ( Amer) Est GFR (Non-Af Amer) BUN/Creatinine Ratio (10-20) Glucose (70-99) mg/dl Lactate 1.1 (0.4-2.0) mmol/L Calcium (8.5-10.1) mg/dl Magnesium (1.8-2.4) mg/dl Total Bilirubin (0.2-1) mg/dl AST (15-37) U/L ALT (12-78) U/L Alkaline Phosphatase (45-117) U/L Lactate Dehydrogenase (87-241) U/L Troponin I (0-0.045) ng/ml C-Reactive Protein (0-0.29) mg/dl NT-Pro-B Natriuret Pep (0-1800) pg/ml Total Protein (6.4-8.2) gm/dl Albumin (3.4-5.0) gm/dl Globulin (2.5-4.0) gm/dl Albumin/Globulin Ratio (0.9-2) Procalcitonin (0-0.5) ng/ml Adenovirus (PCR) Not Detected (NotDetected) B. pertussis DNA (PCR) Not Detected (NotDetected) B.parapertussis DNA PCR Not Detected (NotDetected) C. pneumoniae DNA (PCR) Not Detected (NotDetected) Coronavirus OC43 (PCR) Not Detected (NotDetected) Coronavirus HKU1 (PCR) Not Detected (NotDetected) Coronavirus 229E (PCR) Not Detected (NotDetected) Coronavirus NL63 (PCR) Not Detected (NotDetected) Human Metapneumovir PCR Not Detected (NotDetected) Influenza Type A (PCR) Not Detected (Neg) Influenza Type B (PCR) Not Detected (Neg) M. pneumoniae (PCR) Not Detected (NotDetected) Parainfluenza 1 (PCR) Not Detected (NotDetected) Parainfluenza 2 (PCR) Not Detected (NotDetected) Parainfluenza 3 (PCR) Not Detected (NotDetected) Parainfluenza 4 (PCR) Not Detected (NotDetected) RSV (PCR) Not Detected (NotDetected) Entero/Rhino (PCR) Not Detected (NotDetected) Imaging Data My Impression: X-ray: I interpreted the following studies. Chest: A single view study of the chest was reviewed and was negative for effusion, pulmonary edema, or wide mediastinum. Questionable evolving infiltrate in the right middle and right upper lobes. Cardiomegaly noted. Radiologist's Impression: CTA chest: No pulmonary embolism. Aneurysmal ascending aorta, 4.4 cm. Patchy groundglass opacities bilaterally. Consolidation mild consolidation in the lung bases. Cardiomegaly. Mild mediastinal and hilar nodes. Trace right pleural effusion. Renal cyst. Dense cyst or solid lesion in the left kidney measuring 13 mm. Radiologist: Gutierrez Wells M.D. Blood Pressure Blood Pressure Findings: Normal blood pressure MDM Narrative Pt here with recent URI symptoms. No travel or known exposures to COVID positive individual. Labs reassuring. FLu negative, however CXR suggestive of pneumonia. Mild hypoxia noted at 89% but no significant increased WOB. CT read as b/l pneumonia. Given age, mild hypoxia, and b/l pneumonia. Case discussed with hospitalist. VS stable. No evidence of bacteremia/sepsis. I do not suspect cardiac etiology. Pt aware of all results. An order was placed for continuous cardiac monitoring. The monitor shows a rate of 86 with normal sinus rhythm. Impression & Plan Dyspnea, Pneumonia, Hypoxia Discharge Plan Visit Data *Final* Discharge Date/Time: 11/28/19 04:14 Chief Complaint: Illness Stated Complaint: COUGH, FEVER, CHILLS ED Provider: Lisa Singletary Discharge Problem: Dyspnea, Pneumonia, Hypoxia Patient Disposition: Admitted As Inpatient Condition: Good Discharge Instructions Interventions: ED Discharge Assessment Last Done: 11/28/19 04:14 Discharge Problem: Dyspnea Qualifiers: Dyspnea type: shortness of breath Qualified Code(s): R06.02 - Shortness of breath Pneumonia Qualifiers: Pneumonia type: due to unspecified organism Laterality: bilateral Lung location: lower lobe of lung Qualified Code(s): J18.9 - Pneumonia, unspecified organism
[2019-11-27] MEDS ORDERED: ACETAMINOPHEN 1,000 MG/100 ML VIAL IV STA (23:54)
[2019-11-28] LABS: Basophils # (auto) 0.01 K/uL (0-0.2); Basophils % (auto) 0.1 %; Hematocrit (blood only) 44.4 % (42-52); Hemoglobin 15.2 g/dL (14.0-18.0); Immature Granulocytes # (auto) 0.01 K/uL (0.00-0.02); Immature Granulocytes % (auto) 0.1 %; Lymphocytes # (auto) 1.03 K/uL (1.2-3.4); Lymphocytes % (auto) 15.1 %; Mean Corpuscular Hemoglobin 30.8 pg (25-34); Mean Corpuscular Hgb Conc 34.2 g/dL (32-36); Mean Corpuscular Volume 89.9 fL (80-100); Mean Platelet Volume 9.8 fL (7.4-10.4); Monocytes # (auto) 0.67 K/uL (0.11-0.59); Monocytes % (auto) 9.8 %; Neutrophils % (auto) 74.9 %; Platelet Count 127 K/uL (130-400); RDW Coefficient of Variation 13.7 % (11.5-14.5); RDW Standard Deviation 45.2 fL (36.4-46.3); Red Blood Count 4.94 M/uL (4.7-6.1); White Blood Count 6.82 K/uL (4.8-10.8)
[2019-11-28 00:25] LABS: Influenza A virus by PCR Neg for Influ A (Neg); Influenza B virus by PCR Neg for Influ B (Neg)
[2019-11-28 00:30] LABS: BUN Creatinine Ratio 18.5 (10-20); Blood Urea Nitrogen 17 mg/dl (7-18); Calcium 7.9 mg/dl (8.5-10.1); Carbon Dioxide 25 mmol/L (21-32); Chloride 109 mmol/L (98-107); Creatinine Clr Calc Pharmacy 67.5 ml/min; Est GFR (Non-African American) 77.7; Glucose 104 mg/dl (70-99); Magnesium 2.1 mg/dl (1.8-2.4); Potassium 4.2 mmol/L (3.5-5.1); Sodium 136 mmol/L (136-145)
[2019-11-28 00:36] LABS: Alanine Aminotransferase 118 U/L (12-78); Albumin Globulin Ratio 0.9 (0.9-2); Alkaline Phosphatase 68 U/L (45-117); Aspartate Aminotransferase 120 U/L (15-37); Bilirubin,Total 0.6 mg/dl (0.2-1); C Reactive Protein 2.03 mg/dl (0-0.29); Globulin 3.5 gm/dl (2.5-4.0); NT Pro B Type Natriuretic Pept 384 pg/ml (0-1800); Total Protein 6.5 gm/dl (6.4-8.2); Troponin I < 0.015 ng/ml (0-0.045)
[2019-11-28] MEDS ORDERED: OPTIRAY 320 125ml IV PRN (01:30)
[2019-11-28] MEDS ORDERED: cefTRIAXone SODIUM 2,000 MG/70 ML BAG IV STA (02:53)
[2019-11-28] MEDS ORDERED: LEVOFLOXACIN/D5W 750 MG/150 ML BAG IV STA (02:55)
[2019-11-28 03:31] LABS: Adenovirus PCR Not Detected (NotDetected); Bordetella parapertussis PCR Not Detected (NotDetected); Bordetella pertussis PCR Not Detected (NotDetected); Chlamydia pneumoniae PCR Not Detected (NotDetected); Coronavirus 229E PCR Not Detected (NotDetected); Coronavirus HKU1 PCR Not Detected (NotDetected); Coronavirus NL63 PCR Not Detected (NotDetected); Coronavirus OC43PCR Not Detected (NotDetected); Human Metapneumovirus PCR Not Detected (NotDetected); Influenza A PCR Not Detected (NotDetected); Influenza B PCR Not Detected (NotDetected); Mycoplasma pneumoniae PCR Not Detected (NotDetected); Parainfluenza Virus 1 PCR Not Detected (NotDetected); Parainfluenza Virus 2 PCR Not Detected (NotDetected); Parainfluenza Virus 3 PCR Not Detected (NotDetected); Parainfluenza Virus 4 PCR Not Detected (NotDetected); Respiratory Syncytial VirusPCR Not Detected (NotDetected); Rhinovirus/Enterovirus PCR Not Detected (NotDetected)
--- NOTE | 2019-11-28 03:43 | History & Physical Report ---
Date of Service November 28, 2019 Assessment & Plan (1) Bilateral pneumonia: Symptoms most consistent with a bacterial process. Ceftriaxone 2 g IV daily. Levofloxacin 500 mg IV every 24 hours. Duonebs every 4 hours while awake and every 2 hours when necessary. Guaifenesin extended release 600 mg p.o. twice daily Nasal cannula 2 L oxygen, titrate to keep pulse ox around 95% Present on Admission?: Yes (2) Renal mass, left: 13 mm left kidney lesion noted to solid versus dense cyst. To be followed in the outpatient setting Present on Admission?: Yes (3) Hyperlipidemia: Continue simvastatin 20 mg in the evening Present on Admission?: Yes (4) CAD in [place] artery: CAD of [place] coronary artery- Continue aspirin 81 mg every morning, and metoprolol succinate 25 mg every morning. Present on Admission?: Yes (5) Dilated aortic root: Noted as outpatient, 4.4 cm in diameter. Continue to follow as outpatient. Present on Admission?: Yes Admission and Anticipated Discharge Date Admission Date: 11/28/2019 Anticipated date of discharge: 11/30/19 History of Present Illness Chief Complaint: The patient presents to the emergency department with complaint of 10 days of fevers, intermittently productive cough shortness of breath and dyspnea on exertion, worsening over the past 4 days. Primary Care Provider: Jose Enrique Vincent MD The patient is an 84-year-old male with a past medical history including BPH with LUTS, vasomotor rhinitis, tubular adenoma, seborrheic keratoses, left renal mass, prostatitis, hyperlipidemia, hearing loss, glaucoma, dilated aortic root, CAD of [place] artery and actinic keratosis. He presents to the emergency department with complaints of 10 days of fevers, intermittently productive cough, shortness of breath and dyspnea on exertion, worsening over the past 4 days. He and his had similar symptoms, except toes are a bit worse. They have not had any recent travels or sick exposures, otherwise. Allergies Allergy/AdvReac Type Severity Reaction Status Date / Time neomycin Allergy Intermediate RASH Verified 11/27/19 23:18 polymyxin B Allergy Intermediate RASH Verified 11/27/19 23:18 Home Medications Home Medications Medication Instructions Recorded Confirmed Type latanoprost 0.005 % eye drops 1 drops OP DAILY ml 02/26/19 11/27/19 History aspirin [Adult Low Dose Aspirin] 81 mg PO QAM 03/29/19 11/27/19 History coenzyme Q10 [Co Q-10] 50 mg PO QAM 03/29/19 11/27/19 History omega-3 fatty acids 1,000 mg PO QAM 03/29/19 11/27/19 History metoprolol succinate 25 mg 25 mg PO QAM #90 tab 06/20/19 11/27/19 Rx tablet,extended release 24 hr simvastatin 20 mg tablet 20 mg PO QPM #90 tab 06/20/19 11/27/19 Rx Past Med/Surg History Medical History Benign localized hyperplasia of prostate with urinary obstruction (Acute) CAD in [place] artery (Acute) Dilated aortic root (Acute) Elevated prostate specific antigen (PSA) (Acute) Glaucoma (Acute) bilt Hearing loss (Acute) Hyperlipidemia (Acute) Hypertension Palpitations (Acute) pt denies Prostatitis (Acute) Renal mass, left (Acute) Skin cancer unsure what kind Tubular adenoma of colon (Acute) Surgical History H/O right inguinal hernia repair (Acute) History of bladder surgery "to stretch bladder" History of foot surgery right foot great toe History of tooth extraction History of transurethral resection of prostate Family History Sister Cancer Mother Cardiac disorder Family history of reaction to anesthesia per pt his mother developed alzheimer's from an anesthesia drug Father Cardiac disorder Social History Preferred Language: Telugu Communication Ability: Effective 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 Hx Substance Use: No during the past year weight has: remained stable Physical Activity Frequency: Daily Physical Activity Frequency Comment: Patient rides bicycle about 10 blocks every day. Seatbelt Use: always Review of Systems Review of Systems: The patient denies chest pain, palpitations, lower extremity swelling, sore throat, fevers, chills, sweats, nausea, vomiting, diarrhea , constipation, abdominal pain, pelvic pain, blood in urine or stool, dysuria, lightheadedness, dizziness, headache, memory loss, loss of consciousness, rash, abnormal bruising or bleeding, imbalance, focal weakness, numbness or tingling in arms or legs, generalized arthralgias or myalgias, back or neck pain, or night sweats. The review of systems is otherwise negative other than for that already noted above, and at least 10 systems have been reviewed. Physical Exam Physical Exam: The patient is awake, alert and oriented 3, normocephalic and atraumatic, lying in bed and in no acute distress. HEENT--PERRL, EOMI, mucous membranes and oropharynx dry. Neck--supple. No JVD. No bruits. Thyroid normal, trachea midline, no adenopathy. Heart--normal S1 and S2. No murmurs, rubs or gallops. Lungs--few coarse breath sounds bilaterally. No respiratory distress, no accessory muscle use. Abdomen--normal bowel sounds and soft. Nontender. Nondistended, no hernias or masses, no organomegaly. Extremities--no cyanosis or clubbing. No edema. Dermatologic--normal skin turgor, normal color, no abnormal lymph nodes, no rash. Neurologic--cranial nerves II through XII grossly intact. Rheumatologic--normal range of motion. Psychiatric--normal affect. Results & Data Results & Data ([facility]) Vital Signs (Past 12 Hours) Vital Signs Temp Pulse Resp BP Pulse Ox 11/28/19 02:30 72 28 H 115/70 93 11/28/19 02:00 73 25 H 117/72 92 11/28/19 01:31 99.7 F H 11/28/19 01:30 78 23 123/72 92 11/28/19 00:30 82 24 132/76 92 11/28/19 00:00 81 25 H 156/89 H 92 11/27/19 23:59 92 11/27/19 23:58 101.1 F H 89 L 11/27/19 23:49 80 24 161/84 H 90 11/27/19 22:33 99.7 F H 62 20 165/98 H 93 Laboratory Results Laboratory Results WBC 6.82 K/uL (4.8-10.8) 11/27/19 23:50 RBC 4.94 M/uL (4.7-6.1) 11/27/19 23:50 Hgb 15.2 g/dL (14.0-18.0) 11/27/19 23:50 Hct 44.4 % (42-52) 11/27/19 23:50 MCV 89.9 fL (80-100) 11/27/19 23:50 MCH 30.8 pg (25-34) 11/27/19 23:50 MCHC 34.2 g/dL (32-36) 11/27/19 23:50 RDW Std Deviation 45.2 fL (36.4-46.3) 11/27/19 23:50 RDW Coeff of Dilcia 13.7 % (11.5-14.5) 11/27/19 23:50 Plt Count 127 K/uL (130-400) L 11/27/19 23:50 MPV 9.8 fL (7.4-10.4) 11/27/19 23:50 Immature Gran % (Auto) 0.1 % 11/27/19 23:50 Neut % (Auto) 74.9 % 11/27/19 23:50 Lymph % (Auto) 15.1 % 11/27/19 23:50 Oliver % (Auto) 9.8 % 11/27/19 23:50 Eos % (Auto) 0.0 % 11/27/19 23:50 Baso % (Auto) 0.1 % 11/27/19 23:50 Immature Gran # (Auto) 0.01 K/uL (0.00-0.02) 11/27/19 23:50 Neut # (Auto) 5.10 K/uL (1.4-6.5) 11/27/19 23:50 Lymph # (Auto) 1.03 K/uL (1.2-3.4) L 11/27/19 23:50 Oliver # (Auto) 0.67 K/uL (0.11-0.59) H 11/27/19 23:50 Eos # (Auto) 0.00 K/uL (0-0.5) 11/27/19 23:50 Baso # (Auto) 0.01 K/uL (0-0.2) 11/27/19 23:50 D-Dimer 940 ug/L FEU (0-500) H* 11/27/19 23:50 Sodium 136 mmol/L (136-145) 11/27/19 23:50 Potassium 4.2 mmol/L (3.5-5.1) 11/27/19 23:50 Chloride 109 mmol/L (98-107) H 11/27/19 23:50 Carbon Dioxide 25 mmol/L (21-32) 11/27/19 23:50 Anion Gap 2.0 (3-11) L 11/27/19 23:50 BUN 17 mg/dl (7-18) 11/27/19 23:50 Creatinine 0.91 mg/dl (0.6-1.4) 11/27/19 23:50 Est Cr Clr Drug Dosing 67.5 ml/min 11/27/19 23:50 Est GFR ( Amer) 90.0 11/27/19 23:50 Est GFR (Non-Af Amer) 77.7 11/27/19 23:50 BUN/Creatinine Ratio 18.5 (10-20) 11/27/19 23:50 Glucose 104 mg/dl (70-99) H 11/27/19 23:50 Lactate 1.1 mmol/L (0.4-2.0) 11/28/19 00:20 Calcium 7.9 mg/dl (8.5-10.1) L 11/27/19 23:50 Magnesium 2.1 mg/dl (1.8-2.4) 11/27/19 23:50 Total Bilirubin 0.6 mg/dl (0.2-1) 11/27/19 23:50 AST 120 U/L (15-37) H 11/27/19 23:50 ALT 118 U/L (12-78) H 11/27/19 23:50 Alkaline Phosphatase 68 U/L (45-117) 11/27/19 23:50 Lactate Dehydrogenase 330 U/L (87-241) H 11/27/19 23:50 Troponin I < 0.015 ng/ml (0-0.045) 11/27/19 23:50 C-Reactive Protein 2.03 mg/dl (0-0.29) H 11/27/19 23:50 NT-Pro-B Natriuret Pep 384 pg/ml (0-1800) 11/27/19 23:50 Total Protein 6.5 gm/dl (6.4-8.2) 11/27/19 23:50 Albumin 3.0 gm/dl (3.4-5.0) L 11/27/19 23:50 Globulin 3.5 gm/dl (2.5-4.0) 11/27/19 23:50 Albumin/Globulin Ratio 0.9 (0.9-2) 11/27/19 23:50 Procalcitonin 0.06 ng/ml (0-0.5) 11/27/19 23:50 Adenovirus (PCR) Not Detected (NotDetected) 11/28/19 02:17 B. pertussis DNA (PCR) Not Detected (NotDetected) 11/28/19 02:17 B.parapertussis DNA PCR Not Detected (NotDetected) 11/28/19 02:17 C. pneumoniae DNA (PCR) Not Detected (NotDetected) 11/28/19 02:17 Coronavirus OC43 (PCR) Not Detected (NotDetected) 11/28/19 02:17 Coronavirus HKU1 (PCR) Not Detected (NotDetected) 11/28/19 02:17 Coronavirus 229E (PCR) Not Detected (NotDetected) 11/28/19 02:17 Coronavirus NL63 (PCR) Not Detected (NotDetected) 11/28/19 02:17 Human Metapneumovir PCR Not Detected (NotDetected) 11/28/19 02:17 Influenza Type A (PCR) Not Detected (NotDetected) 11/28/19 02:17 Influenza Type B (PCR) Not Detected (NotDetected) 11/28/19 02:17 M. pneumoniae (PCR) Not Detected (NotDetected) 11/28/19 02:17 Parainfluenza 1 (PCR) Not Detected (NotDetected) 11/28/19 02:17 Parainfluenza 2 (PCR) Not Detected (NotDetected) 11/28/19 02:17 Parainfluenza 3 (PCR) Not Detected (NotDetected) 11/28/19 02:17 Parainfluenza 4 (PCR) Not Detected (NotDetected) 11/28/19 02:17 RSV (PCR) Not Detected (NotDetected) 11/28/19 02:17 Entero/Rhino (PCR) Not Detected (NotDetected) 11/28/19 02:17 Diagnostic Findings [facility] Patient: MANNY TAYLOR (Male) : 37 Status: ER Date: 11/28/19 01:30 Room #: History: FEVER, COUGH, ABNORMAL CHEST XRAY Slices: [id number] Priors: Tech: Ethan King @ [phone] Exams: CTA CHEST Contrast: IV Amt: 118 ML OPTIRAY 320 Accession Numbers: [id number] Preliminary Findings Only See Final Report For Complete Findings CTA CHEST: No pulmonary embolus. Aneurysmal ascending aorta, 4.4 cm. Patchy groundglass opacities bilaterally. Consolidation mild consolidation in lung bases. Cardiomegaly. Mild mediastinal and hilar nodes. Trace right pleural effusion. Renal cysts. Dense cyst or solid lesion in the left kidney measuring 13 mm. Radiologist: Gutierrez Wells M.D. Study ready at 01:34 and initial results transmitted at 01:40 *This report constitutes a preliminary interpretation only. Non-acute findings felt to be unrelated to the clinical presentation may not be discussed in this report. The study will be interpreted and a final report will be generated by the local Radiologist the following shift. To reach the hospital radiology department call [phone]. If a discrepancy is found between the preliminary and final interpretations of this study, please notify us via our Client Portal at [email or web address], under QA Exams.You can also fax this report with a description of the discrepancy, or include the final report, to our daytime fax number [phone].If faxing, please indicate the severity of discrepancy using one of the following categories: [ ] 1 - Agree/Informational [ ] 2 - Unlikely to Affect Management [ ] 3 - Possible Eventual Change of Management [ ] 4 - Probable Immediate Change of Management For all other patient related information, please fax us at [phone]. [id number] Code Status & VTE Plan Code Status Full code VTE Prophylaxis Plan VTE Prophylaxis will be ordered: Yes PG Care Time/CCT Total # of Minutes Spent Total Time Spent with Patient: Total time spent is greater than 50% in coordination of care (as documented) at patient's floor/unit and/or counseling patient: Coding Level of Care Code 70482 Initial Inpt Care Lvl 3 Diagnoses Bilateral pneumonia J18.9 Renal mass, left N28.89 Hyperlipidemia E78.5 CAD in [place] artery I25.10 Dilated aortic root I77.810
[2019-11-28 03:44] LABS: D Dimer 940 ug/L FEU (0-500)
[2019-11-28] MEDS ORDERED: ONDANSETRON INJ 2 MG/ML 2 ML VIAL IV PRN (04:34)
[2019-11-28] MEDS ORDERED: ALUMINUM/MAGNESIUM SUSP 30 ML UDC PO PRN (04:34)
[2019-11-28] MEDS ORDERED: MAGNESIUM HYDROXIDE SUSP 30 ML UDC PO PRN (04:34)
[2019-11-28] MEDS ORDERED: ACETAMINOPHEN 325 MG TAB PO PRN (04:34)
[2019-11-28] MEDS ORDERED: methylPREDNISolone 40 MG in SYRINGE 0 ML IV SCH (05:00)
[2019-11-28] MEDS ORDERED: methylPREDNISolone 20 MG in SYRINGE 0 ML IV SCH (05:00)
--- NOTE | 2019-11-28 06:53 | XRay Report ---
XR chest 1V portable CLINICAL HISTORY: 84 years-old Male presenting with cough. TECHNIQUE: Portable upright AP view of the chest was obtained. COMPARISON: 02/02/2018. FINDINGS: Atherosclerosis of the aortic arch. Tortuosity and prominence of the thoracic aorta. Cardiac silhouet te enlarged. Pulmonary vascular prominence. Hilar prominence may be vascular in etiology. Heterogenei ty lung parenchyma. Vague added density in the periphery of the right mid lung new from prior. Minima l right basilar opacity also noted. No large effusion or pneumothorax. Degenerative changes of the th oracic spine. Upper abdomen normal. IMPRESSION: 1. Vague right mid lung and minimal right basilar opacities concerning for developing infiltrate/pne umonia. 2. Cardiomegaly with volume overload. No convincing evidence of edema. ACT 112: Negative or not required by law. Electronically signed by: Ulises Padilla M.D. 11/28/2019 6:52 AM
[2019-11-28] MEDS: ALBUT/IPRATROP 3MG/0.5MG NEB 3 ML VIAL NEB SCH ×4 (07:02→19:18)
[2019-11-28] MEDS: BUDESONIDE 0.5 MG/2 ML VIAL (PULMICORT) NEB SCH ×2 (07:02→19:18)
--- NOTE | 2019-11-28 07:41 | CT Scan Report ---
CT ANGIOGRAPHY OF THE CHEST, PULMONARY EMBOLUS PROTOCOL CLINICAL HISTORY: fever, cough, abn cxr, cardiac hx COMPARISON STUDY: Chest radiograph February 02, 2018. TECHNIQUE: Following IV administration of 118 mL of Optiray-320, helical axial images of the chest we re obtained utilizing the pulmonary embolus protocol. Maximal intensity projections and sagittal and coronal reformats were viewed on an independent 3D workstation. IV contrast was administered withou t complication. Automated exposure control was utilized for the study. A dose lowering technique wa s utilized adhering to the principles of ALARA. CT DOSE: 426.60 mGy.cm FINDINGS: No pulmonary emboli are identified. Ascending aorta measures 4.5 cm in caliber. There is n o thoracic aortic dissection. Moderate cardiomegaly is noted. There is no pericardial effusion. No pn eumothorax is present. There are trace bilateral pleural effusions. Central airways are patent. There are upper lobe and peripheral predominant moderate bilateral groundglass opacities. Note is made of a 1 cm solid left upper lobe nodule on image 219. This contains an eccentrically located calcificatio n and equivocal fat. No cavitation is present. No thoracic lymphadenopathy is present. No suspicious lesions within the bony thorax are noted. A cyst within the upper pole of the right kidney is noted. A 1.3 cm hypodense lesion within the upper pole the left kidney shown on image 31 of 308 was shown to represent a hyperdense cyst on CT of March 18, 2019. An adjacent 1.3 cm hypodense lesion on image 24 is suboptimally assessed on this exam but likely similar to prior CT of March 18, 2019. IMPRESSION: 1. No pulmonary emboli identified. 2. Moderate upper lobe and peripheral predominant bilateral groundglass opacities suggestive of an in fectious etiology which may be viral or bacterial in etiology. 3. 1 cm solid left upper lobe nodule which contains an eccentrically located calcification and equivo karen fat. Although a hamartoma is within the differential, this nodule is indeterminate and pulmonary consultation is recommended as well as a follow-up CT in 3-6 months. Findings discussed with Brant rodriguez at time of dictation. 4. 1.3 cm hypodense lesion within the upper pole of the left kidney. This is suboptimally assessed on this examination but likely similar to CT of March 18, 2019. This favors a small renal cell carcinoma and can be assessed on follow-up abdominal CT as previously recommended. 5. Dilatation of the ascending aorta measuring 4.5 cm. No thoracic aortic dissection. ACT 112: Negative or not required by law. Electronically signed by: Byron Sutton M.D. 11/28/2019 7:40 AM
[2019-11-28] MEDS: METOPROLOL SUCC 25MG EXT REL TAB PO SCH (08:04)
[2019-11-28] MEDS: ASPIRIN 81 MG ECTAB PO SCH (08:04)
[2019-11-28] MEDS: OMEGA-3 (PURIFIED FISH OIL) 1 GM CAP PO SCH (08:04)
[2019-11-28] MEDS ORDERED: NON-FORMULARY MEDICATION (Coenzyme Q10 [Co Q-10] 50 MG) PO SCH (09:00)
[2019-11-28] MEDS ORDERED: SODIUM CHLORIDE 0.9% 1000ML 1,000 ML IV SCH (11:00)
--- NOTE | 2019-11-28 13:01 | Electrocardiogram Report ---
Test Reason : Blood Pressure : / mmHG Vent. Rate : 081 BPM Atrial Rate : 081 BPM P-R Int : 178 ms QRS Dur : 104 ms QT Int : 378 ms P-R-T Axes : 071 -12 006 degrees QTc Int : 439 ms Poor data quality, interpretation may be adversely affected Normal sinus rhythm Incomplete right bundle branch block Borderline ECG When compared with ECG of 15-NOV-2017 14:58, No significant change was found Confirmed by Pete Woodward ([id number]) on 11/28/2019 1:01:11 PM Referred By: REFERRED SELF Confirmed By:Pete Woodward
--- NOTE | 2019-11-28 17:44 | Hospitalist Progress Note ---
Date of Service November 28, 2019 Assessment & Plan (1) Bilateral pneumonia: Symptoms most consistent with a bacterial process. continue Ceftriaxone 2 g IV daily and Levaquin Solu Medrol q12 Duonebs every 4 hours while awake and every 2 hours when necessary. Guaifenesin extended release 600 mg p.o. twice daily Nasal cannula 2 L oxygen, titrate to keep pulse ox around 95%, titrated to room air plan to d/c to home tomorrow, will complete a course of Levaquin, steroids (2) Renal mass, left: 13 mm left kidney lesion noted to solid versus dense cyst. To be followed in the outpatient setting (3) Hyperlipidemia: Continue simvastatin 20 mg in the evening (4) CAD in [place] artery: CAD of [place] coronary artery- Continue aspirin 81 mg every morning, and metoprolol succinate 25 mg every morning. (5) Dilated aortic root: Noted as outpatient, 4.4 cm in diameter. Continue to follow as outpatient. (6) Pulmonary nodule: noted on CT of the chest will need follow up in 3-6 months Admission and Anticipated Discharge Date Admission Date: November 28, 2019 Anticipated date of discharge: 11/30/19 Subjective patient admitted after midnight feeling much better titrated off of oxygen eating well discussed going home tomorrow, he agreed Review of Systems Review of Systems: All systems reviewed & are unremarkable except as noted in HPI & below Constitutional: + fatigue and + weakness; no fever, no chills and no sweats Respiratory: + cough and + dyspnea; no sputum production Cardiovascular: no chest pain Physical Exam Constitutional: WD/WN, vitals as above Eyes: PERRL, conjunctivae normal, anicteric sclerae ENMT: external ear and nose normal, oropharynx normal Neck: trachea midline, no thyromegaly Respiratory: normal respiratory effort, lungs clear to auscultation Cardiovascular: RRR, no murmur, no edema Gastrointestinal (Abdomen): normal bowel sounds, soft, nontender, no hepatosplenomegaly Musculoskeletal: no cyanosis or clubbing, extremities motor strength 5/5 Skin: no rashes, warm and dry Neurologic: patellar DTR's 2+ bilat, sensation intact and PERRL, EOMI, accommodation nl, no face palsy, no dysarthria Psychiatric: A+Ox3, euthymic affect Lymphatic: no cervical or axillary lymphadenopathy Results & Data Results & Data ([facility]) Vital Signs (Past 12 Hours) Vital Signs Temp Pulse Pulse Pulse Resp BP BP 11/28/19 15:05 75 14 11/28/19 15:00 36.8 C 86 18 137/87 11/28/19 14:55 83 11/28/19 12:00 36.7 C 79 18 144/81 H 11/28/19 11:15 76 14 11/28/19 08:41 89 11/28/19 08:09 36.6 C 128/74 11/28/19 07:02 72 18 11/28/19 06:04 78 Pulse Ox 11/28/19 15:05 94 11/28/19 15:00 94 11/28/19 14:55 11/28/19 12:00 93 11/28/19 11:15 92 11/28/19 08:41 11/28/19 08:09 11/28/19 07:02 94 11/28/19 06:04 Laboratory Results Laboratory Results - last 24 hr 11/27/19 11/27/19 11/27/19 23:39 23:50 23:50 WBC 6.82 RBC 4.94 Hgb 15.2 Hct 44.4 MCV 89.9 MCH 30.8 MCHC 34.2 RDW Std Deviation 45.2 RDW Coeff of Dilcia 13.7 Plt Count 127 L MPV 9.8 Immature Gran % (Auto) 0.1 Neut % (Auto) 74.9 Lymph % (Auto) 15.1 [place] % (Auto) 9.8 Eos % (Auto) 0.0 Baso % (Auto) 0.1 Immature Gran # (Auto) 0.01 Neut # (Auto) 5.10 Lymph # (Auto) 1.03 L [place] # (Auto) 0.67 H Eos # (Auto) 0.00 Baso # (Auto) 0.01 D-Dimer Sodium 136 Potassium 4.2 Chloride 109 H Carbon Dioxide 25 Anion Gap 2.0 L BUN 17 Creatinine 0.91 Est Cr Clr Drug Dosing 67.5 Est GFR ( Amer) 90.0 Est GFR (Non-Af Amer) 77.7 BUN/Creatinine Ratio 18.5 Glucose 104 H Lactate Calcium 7.9 L Magnesium 2.1 Total Bilirubin 0.6 AST 120 H ALT 118 H Alkaline Phosphatase 68 Lactate Dehydrogenase Troponin I < 0.015 C-Reactive Protein 2.03 H NT-Pro-B Natriuret Pep 384 Total Protein 6.5 Albumin 3.0 L Globulin 3.5 Albumin/Globulin Ratio 0.9 Procalcitonin Adenovirus (PCR) B. pertussis DNA (PCR) B.parapertussis DNA PCR C. pneumoniae DNA (PCR) Coronavirus OC43 (PCR) Coronavirus HKU1 (PCR) Coronavirus 229E (PCR) Coronavirus NL63 (PCR) Human Metapneumovir PCR Influenza Type A (PCR) Neg for Influ A Influenza Type B (PCR) Neg for Influ B M. pneumoniae (PCR) Parainfluenza 1 (PCR) Parainfluenza 2 (PCR) Parainfluenza 3 (PCR) Parainfluenza 4 (PCR) RSV (PCR) Entero/Rhino (PCR) 11/27/19 11/27/19 11/27/19 23:50 23:50 23:50 WBC RBC Hgb Hct MCV MCH MCHC RDW Std Deviation RDW Coeff of Dilcia Plt Count MPV Immature Gran % (Auto) Neut % (Auto) Lymph % (Auto) [place] % (Auto) Eos % (Auto) Baso % (Auto) Immature Gran # (Auto) Neut # (Auto) Lymph # (Auto) [place] # (Auto) Eos # (Auto) Baso # (Auto) D-Dimer 940 H* Sodium Potassium Chloride Carbon Dioxide Anion Gap BUN Creatinine Est Cr Clr Drug Dosing Est GFR ( Amer) Est GFR (Non-Af Amer) BUN/Creatinine Ratio Glucose Lactate Calcium Magnesium Total Bilirubin AST ALT Alkaline Phosphatase Lactate Dehydrogenase 330 H Troponin I C-Reactive Protein NT-Pro-B Natriuret Pep Total Protein Albumin Globulin Albumin/Globulin Ratio Procalcitonin 0.06 Adenovirus (PCR) B. pertussis DNA (PCR) B.parapertussis DNA PCR C. pneumoniae DNA (PCR) Coronavirus OC43 (PCR) Coronavirus HKU1 (PCR) Coronavirus 229E (PCR) Coronavirus NL63 (PCR) Human Metapneumovir PCR Influenza Type A (PCR) Influenza Type B (PCR) M. pneumoniae (PCR) Parainfluenza 1 (PCR) Parainfluenza 2 (PCR) Parainfluenza 3 (PCR) Parainfluenza 4 (PCR) RSV (PCR) Entero/Rhino (PCR) 11/28/19 11/28/19 00:20 02:17 WBC RBC Hgb Hct MCV MCH MCHC RDW Std Deviation RDW Coeff of Dilcia Plt Count MPV Immature Gran % (Auto) Neut % (Auto) Lymph % (Auto) [place] % (Auto) Eos % (Auto) Baso % (Auto) Immature Gran # (Auto) Neut # (Auto) Lymph # (Auto) [place] # (Auto) Eos # (Auto) Baso # (Auto) D-Dimer Sodium Potassium Chloride Carbon Dioxide Anion Gap BUN Creatinine Est Cr Clr Drug Dosing Est GFR ( Amer) Est GFR (Non-Af Amer) BUN/Creatinine Ratio Glucose Lactate 1.1 Calcium Magnesium Total Bilirubin AST ALT Alkaline Phosphatase Lactate Dehydrogenase Troponin I C-Reactive Protein NT-Pro-B Natriuret Pep Total Protein Albumin Globulin Albumin/Globulin Ratio Procalcitonin Adenovirus (PCR) Not Detected B. pertussis DNA (PCR) Not Detected B.parapertussis DNA PCR Not Detected C. pneumoniae DNA (PCR) Not Detected Coronavirus OC43 (PCR) Not Detected Coronavirus HKU1 (PCR) Not Detected Coronavirus 229E (PCR) Not Detected Coronavirus NL63 (PCR) Not Detected Human Metapneumovir PCR Not Detected Influenza Type A (PCR) Not Detected Influenza Type B (PCR) Not Detected M. pneumoniae (PCR) Not Detected Parainfluenza 1 (PCR) Not Detected Parainfluenza 2 (PCR) Not Detected Parainfluenza 3 (PCR) Not Detected Parainfluenza 4 (PCR) Not Detected RSV (PCR) Not Detected Entero/Rhino (PCR) Not Detected Medications Administered Current Inpatient Medications Acetaminophen (Tylenol) 650 mg PO Q4H PRN PRN Reason: Pain or Fever Stop: 12/28/19 04:33 Al Hydrox/Mg Hydrox/Simethicone (Maalox) 15 ml PO Q4H PRN PRN Reason: Dyspepsia Stop: 12/28/19 04:33 Albuterol (Duoneb) 3 ml NEB QIDR [facility] Stop: 12/28/19 06:59 Last Admin: 11/28/19 15:05 Dose: 3 ml Documented by: Aspirin (Ecotrin Ectab) 81 [facility]AJD [facility] [place] Stop: 12/28/19 08:59 Last Admin: 11/28/19 08:04 Dose: 81 mg Documented by: Budesonide (Pulmicort Respules) 0.5 mg NEB BIDR [facility] Stop: 12/28/19 06:59 Last Admin: 11/28/19 07:02 Dose: 0.5 mg Documented by: Fish Oil ([place]-3 (Purified Fish Oil)) 1 gm PO QAM [facility] Stop: 12/28/19 08:59 Last Admin: 11/28/19 08:04 Dose: 1 gm Documented by: Ceftriaxone Sodium 2,000 mg/ (Dextrose) 70 mls @ 100 mls/hr IV Q24H [facility]; Protocol Stop: 12/04/19 04:41 Levofloxacin/Dextrose (Levaquin/D5w) 500 mg in 100 mls @ 100 mls/hr IV Q24H [facility] Stop: 12/04/19 03:59 Methylprednisolone 50 mg/ (Syringe) 0.8 mls @ 1.5 mls/min IV Q12 [facility] Stop: 12/28/19 20:59 Sodium Chloride (Nss 1000ml) 1,000 mls @ 125 mls/hr IV .Q8H [facility] Stop: 11/28/19 18:59 Last Admin: 11/28/19 11:08 Dose: 125 mls/hr Documented by: Ioversol (Optiray 320 125ml) 125 ml IV ONCE PRN PRN Reason: Interaction Checking Stop: 12/02/19 01:29 Last Admin: 11/28/19 01:30 Dose: 118 ml Documented by: Latanoprost (Xalatan Oph) 1 drops OP HS [facility] Stop: 12/28/19 20:59 Magnesium Hydroxide (Milk Of Magnesia) 30 ml PO Q12H PRN PRN Reason: Constipation Stop: 12/28/19 04:33 Metoprolol Succinate (Toprol Xl) 25 mg PO QAM [facility] Stop: 12/28/19 08:59 Last Admin: 11/28/19 08:04 Dose: 25 mg Documented by: Ondansetron HCl (Zofran) 4 mg IV Q6H PRN PRN Reason: Nausea Stop: 12/28/19 04:33 Simvastatin (Zocor) 20 mg PO QPM [facility] Stop: 12/28/19 20:59 PG Care Time/CCT Total # of Minutes Spent Total Time Spent with Patient: Total time spent is greater than 50% in coordination of care (as documented) at patient's floor/unit and/or counseling patient: Coding Level of Care Code None Diagnoses Bilateral pneumonia J18.9 Renal mass, left N28.89 Hyperlipidemia E78.5 CAD in [place] artery I25.10 Dilated aortic root I77.810 Pulmonary nodule R91.1
[2019-11-28] MEDS ORDERED: LATANOPROST 0.005% OP SOLN 2.5 ML BTL OP SCH (21:00)
[2019-11-28] MEDS ORDERED: SIMVASTATIN 20 MG TAB PO SCH (21:00)
[2019-11-28] MEDS: methylPREDNISolone 50 MG in SYRINGE 0 ML IV SCH (22:05)
[2019-11-29] MEDS ORDERED: LEVOFLOXACIN/D5W 500 MG/100 ML BAG IV SCH (03:00)
[2019-11-29] MEDS ORDERED: cefTRIAXone SODIUM 2,000 MG in DEXTROSE 5% 50 ML IV SCH (04:00)
[2019-11-29] MEDS: ALBUT/IPRATROP 3MG/0.5MG NEB 3 ML VIAL NEB SCH ×2 (07:28→10:35)
[2019-11-29] MEDS: BUDESONIDE 0.5 MG/2 ML VIAL (PULMICORT) NEB SCH (07:28)
[2019-11-29] MEDS: methylPREDNISolone 50 MG in SYRINGE 0 ML IV SCH (07:53)
[2019-11-29] MEDS: ASPIRIN 81 MG ECTAB PO SCH (07:54)
[2019-11-29] MEDS: METOPROLOL SUCC 25MG EXT REL TAB PO SCH (07:54)
[2019-11-29] MEDS: OMEGA-3 (PURIFIED FISH OIL) 1 GM CAP PO SCH (07:54)
--- NOTE | 2019-11-29 09:51 | Discharge Summary ---
Date of Service November 29, 2019 Admission HPI Per Admitting Provider The patient is an 84-year-old male with a past medical history including BPH with LUTS, vasomotor rhinitis, tubular adenoma, seborrheic keratoses, left renal mass, prostatitis, hyperlipidemia, hearing loss, glaucoma, dilated aortic root, CAD of [place] artery and actinic keratosis. He presents to the emergency department with complaints of 10 days of fevers, intermittently productive cough, shortness of breath and dyspnea on exertion, worsening over the past 4 days. He and his had similar symptoms, except toes are a bit worse. They have not had any recent travels or sick exposures, otherwise. Principal Diagnosis Pneumonia Discharge Exam Constitutional WD/WN, vitals as above Eyes PERRL, conjunctivae normal, anicteric sclerae ENMT external ear and nose normal, oropharynx normal Neck trachea midline, no thyromegaly Respiratory normal respiratory effort, lungs clear to auscultation Cardiovascular RRR, no murmur, no edema Gastrointestinal (Abdomen) normal bowel sounds, soft, nontender, no hepatosplenomegaly Musculoskeletal no cyanosis or clubbing, extremities motor strength 5/5 Skin no rashes, warm and dry Neurologic patellar DTR's 2+ bilat, sensation intact and PERRL, EOMI, accommodation nl, no face palsy, no dysarthria Psychiatric A+Ox3, euthymic affect Lymphatic no cervical or axillary lymphadenopathy Discharge Data Allergies Allergy/AdvReac Type Severity Reaction Status Date / Time neomycin Allergy Intermediate RASH Verified 11/27/19 23:18 polymyxin B Allergy Intermediate RASH Verified 11/27/19 23:18 Consultations 11/28/19 04:34 Consult Case Management - Discharge Planning Routine Ordered Studies 11/28/19 00:33 CT angio chest PE protocol Urgent Hospital Course (1) Bilateral pneumonia: Symptoms most consistent with a bacterial process. treated with Ceftriaxone 2 g IV daily and Levaquin IV daily Solu Medrol q12, changed to Prednisone daily Duonebs every 4 hours while awake and every 2 hours when necessary. Guaifenesin extended release 600 mg p.o. twice daily Nasal cannula 2 L oxygen, titrate to keep pulse ox around 95%, titrated to room air feeling better, breathing easier c/o some congestion in nostrils but coughing much less, breathing room air, no fever discharge home on Levaquin and Prednisone encouraged to get rest, stay well hydrated, well nourished continue social distancing follow up with PCP influenza and biofire negative not felt to be at risk for COVID 19, he has been practicing social distancing, no recent travel, no exposure to person who has traveled or known COVID case (2) Pulmonary nodule: noted on CT of the chest, incidental finding will need follow up in 3-6 months (3) Renal mass, left: 13 mm left kidney lesion noted to solid versus dense cyst. recommend routine follow up imaging as outpatient (4) Hyperlipidemia: Continue simvastatin 20 mg in the evening (5) CAD in [place] artery: CAD of [place] coronary artery- Continue aspirin 81 mg every morning, and metoprolol succinate 25 mg every morning. (6) Dilated aortic root: Noted as outpatient, 4.4 cm in diameter. Continue to follow as outpatient. Total Time Total Time Spent Total Time Spent (In Minutes): 32 minutes Total Time Includes: Examination of the Patient, Discharge Planning and Medication Reconciliation Discharge Plan Discharge Items Patient Disposition: Home - Self-Care Reason For Visit: BILATERAL PNEUMONIA Discharge Diagnosis: Bilateral pneumonia, suspect bacterial Condition on Discharge: Good Goals: stay well rested, well nourished, well hydrated complete course of antibiotics and Prednisone follow up with Dr. Vincent in one week, call his office, they are arranging tele medicine visits Activity: Resume your previous activity Activity Comment: please stay home, practice social distancing Driving/Machine Use: Resume 1 day after discharge Weightbearing: Full weightbearing Non-emergency contact: Primary Care Provider Call non-emergency contact if: you have any medication questions, your symptoms worsen and you have a fever Follow-up/Referrals: Jez Vincent MD [Primary Care Provider] - (Please call your primary care doctor's office and check to see if you need to make a follow up appointment.) Diet: Heart Healthy Addtl Attending Provider Instructions: Medications: - LEVOFLOXACIN: 500mg daily x 5 more days, this is antibiotic, start taking tomorrow morning - PREDNISONE: 40mg daily x 3 more days, start taking tomorrow - ALBUTEROL: inhaler to use as needed for any shortness of breath You can also use Tylenol for aches/fever Make sure you get plenty of rest, stay well hydrated, well nourished, continue to practice social distancing Bilateral pneumonia: diagnosed on CT of the chest influenza negative and testing for other viruses negative treated for bacterial pneumonia, responding well to antibiotics complete 5 more days of Levofloxacin, 3 more days of Prednisone you were NOT tested for COVID 19 as you had no travel history, no known exposure to someone else who traveled and no known exposure to a known COVID 19 patient this was discussed with infection control please call Dr. Vincent's office for follow up in one week, likely just a phone call or tele medicine visit if possible as we are limiting office visits in the current environment you have been afebrile since admission, normal white blood cell count, not requiring oxygen, lungs are clear on exam Pending Studies at Discharge: No Stand-Alone Forms: My [facility], Smoking Cessation Medications and DC Order Prescriptions: New prednisone 20 mg tablet 40 mg PO DAILY 3 Days Qty: 6 RF: 0 albuterol sulfate 90 mcg/actuation HFA aerosol inhaler 2 puffs INH Q8H PRN (Reason: shortness of breath or wheezing) Qty: 6.7 RF: 0 levofloxacin 500 mg tablet 500 mg PO DAILY 5 Days Qty: 5 RF: 0 Continued metoprolol succinate 25 mg tablet extended release 24 hr 25 mg PO QAM Qty: 90 RF: 3 simvastatin 20 mg tablet 20 mg PO QPM Qty: 90 RF: 3 latanoprost 0.005 % drops 1 drops OP DAILY RF: 0 coenzyme Q10 [Co Q-10] 50 mg Capsule 50 mg PO QAM RF: 0 omega-3 fatty acids 1,000 mg capsule 1,000 mg PO QAM RF: 0 aspirin [Adult Low Dose Aspirin] 81 mg tablet,delayed release (DR/EC) 81 mg PO QAM RF: 0 Discharge Orders: Discharge Order (Routine); Ordered 11/29/19 Ordered By: Brant Castelan Admission Data Admit Date/Time: 11/28/19 03:42 Attending Provider: Brant Castelan Admit Provider: Lonny Stone Primary Care Provider: Jez Vincent Other Interventions: Discharge Summary Assessment (RN) Last Done: 11/29/19 09:58 DC Date/Time DO NOT enter until pt leaves facility: 11/29/19 10:40 Coding Level of Care Code D/C Day Management >30 mins Diagnoses Bilateral pneumonia J18.9 Pulmonary nodule R91.1 Renal mass, left N28.89 Hyperlipidemia E78.5 CAD in [place] artery I25.10 Dilated aortic root I77.810
== END 2019-11-29 10:40 | disposition home or self-care (01) ==
LOC: ED 22:29 → INTOOBSV 11-28 03:42 → SUATTDRO 11-28 03:42 → 2N 11-28 03:42

== ENCOUNTER 2023-12-09 20:33 | Observation (INO) ==
--- NOTE | 2023-12-09 20:55 | Emergency Department Note ---
Impression & Plan Episode of unresponsiveness ED Provider Note HISTORY OF PRESENT ILLNESS: Patient is an 88-year-old male presenting with an episode of dizziness and near syncope. Patient was at her granddaughter's birthday alliance party today leaning against a wall when he felt lightheaded like he was going to pass out. He was lowered to the ground. He reportedly had an episode in which she was unable to answer questions for family and they called 911. Patient denies any chest pain or shortness of breath prior to the episode of dizziness. He reports he did have a slight headache earlier in the day. Denies any nausea or vomiting. On arrival to the ER, he denies any complaints. Reports being back to his normal self. Patient is on aspirin daily. Patient denies any recent medication changes. Patient reports baseline lower extremity edema. ROS: as above PHYSICAL EXAM: Constitutional: Patient appears in no acute distress. HENT: Head: Normocephalic and atraumatic. Eyes: EOMI, PERRL Mouth/Throat: Mucous membranes moist. Neck: Trachea midline. Neck supple. Cardiovascular: RRR, No murmurs, rubs or gallops. Intact distal pulses. Pulmonary/Chest: No respiratory distress. Breath sounds clear and equal bilaterally. No wheezes or rales. Abdominal: Abdomen soft, no tenderness, rebound or guarding. Musculoskeletal: No tenderness or deformity noted. +2 pitting edema of bilateral lower extremities extending to mid[place] Skin: Warm and dry. No rash, erythema, pallor or cyanosis Psychiatric: Appropriate mood and affect for situation. Neurological: Alert and keenly responsive. CN II-XII grossly intact, moving all extremities equally and fully. MDM: - Vitals signs stable - History obtained via patient. History as above. - Chronic conditions affecting care: HTN; HLD; CAD; hypothyroidism - Differential diagnoses include, but are not limited to: dysrhythmia; ACS; CVA; intracranial hemorrhage; electrolyte abnormality; hypoglycemia - Order placed for continuous cardiac monitoring. At this time, monitor showed rate of 76 bpm with normal sinus rhythm, per my interpretation. - External medical records reviewed. Primary care visit note dated 10/03/2023 was reviewed. Patient was seen in their clinic for bilateral lower extremity edema and cellulitis of the left leg and was started on Keflex. - EKG interpreted by myself showed normal sinus rhythm. Rate 70 bpm. QT 412. No acute ischemic changes. - Laboratory workup interpreted by myself showed normal WBC; stable electrolytes; elevated TSH (5.227) but normal T4; normal troponin; normal lipase - CXR negative for pneumonia, per my interpretation - CT head wo contrast negative for acute pathology, per radiology - Family presents later and provides more history. Reports that the patient had 2 episodes this evening in which he would stare off and become unresponsive and they helped lower him to the ground. They state that the episodes lasted about 30 seconds each. - Discussion was had with case mgr about patient's case and need for admission - Hospitalist consulted for admission - Patient admitted to [facility] for further evaluation and management. ASSESSMENT AND PLAN: Diagnosis: episode of unresponsiveness Plan: admit Past Med/Surg History Medical History History of adenomatous polyp of colon Hypothyroidism CAD (coronary artery disease) Renal lesion Abnormal chest CT Pulmonary nodule Poor historian History of squamous cell carcinoma History of 2019 novel coronavirus disease (COVID-19) Hypertension Hyperlipidemia Hearing loss Glaucoma Benign localized hyperplasia of prostate with urinary obstruction Surgical History History of cataract surgery History of squamous cell carcinoma excision History of bladder surgery History of tooth extraction History of transurethral resection of prostate History of foot surgery H/O right inguinal hernia repair Family History Sister Cancer Breast cancer Mother Cardiac disorder Family history of reaction to anesthesia Alzheimer disease Father Cardiac disorder Denies family history of Ovarian cancer Prostate cancer Myocardial infarction Colorectal cancer Social History (Updated 10/03/23 @ 09:29 by Cecy James LPN) Smoking Status: Unknown if ever smoked Second Hand Exposure: Yes (IN THE PAST); Do You Dip or Chew Tobacco: No; Hx Alcohol Use: Yes Alcohol type: beer Alcohol Intake Frequency: Monthly or Less Alcohol Intake Frequency Comment: One beer every 1-2 weeks. Hx Substance Use: No Preferred Language: Ugandan Communication Ability: Effective Visual Impairment: Limited Hearing Ability: Use of Hearing Aid Cmm Technician Required: No Beliefs That Will Affect Care: None marital status: Current Living Situation: Spouse current occupational status: retired current occupation: [employer] Feels Safe at Home: Yes Childhood Exposure to Second-Hand Smoke: No Diet: regular caffeine: Yes during the past year weight has: remained stable Dental Care, Regularly: Yes Physical Activity Frequency: Daily Physical Activity Frequency Comment: Patient rides bicycle about 10 blocks every day. Seatbelt Use: always Sunscreen Use: Yes Assistive Devices: Glasses and Hearing Aid - Bilateral Allergies Allergies Allergy/AdvReac Type Severity Reaction Status Date / Time neomycin Allergy Mild RASH Verified 10/03/23 09:21 polymyxin B Allergy Mild RASH Verified 10/03/23 09:21 Home Meds Home Medications Medication Instructions Recorded Confirmed aspirin 81 mg tablet,delayed 81 mg PO QAM 03/29/19 12/09/23 release (Adult Low Dose Aspirin) coenzyme Q10 50 mg capsule (Co 50 mg PO QAM 03/29/19 12/09/23 Q-10) ipratropium bromide 42 mcg (0.06 2 spray intranasal .UP TO 3 TIMES 01/10/22 12/09/23 %) nasal spray A DAY PRN Congestion krill 1,000 mg-omega-3 170 mg-dha 1 cap PO QAM 08/31/22 12/09/23 50 mg-epa 80 [id number] capsule (krill oil) levothyroxine 25 mcg tablet 25 mcg PO DAILYBB 12/09/23 12/09/23 Previous Rx's Medication Instructions Recorded pantoprazole 20 mg tablet,delayed 20 mg PO DAILYBB #90 tabs 11/15/22 release metoprolol succinate 25 mg 25 mg PO QAM #90 tabs 03/02/23 tablet,extended release 24 hr simvastatin 20 mg tablet 20 mg PO HS #90 tabs 10/17/23 Results & Data (ED) Vital Signs Vital Signs - 24 hr 12/09/23 20:29 12/09/23 20:36 12/09/23 20:48 Temperature 36.5 C Temperature Source Oral Pulse Rate 74 76 Pulse Rate from SpO2 Sensor Pulse Rhythm Regular Pulse Strength Normal Respiratory Rate 16 22 Respiratory Effort / Characteristics Non-Labored Respiratory Depth Normal Respiratory Pattern Regular Blood Pressure 128/75 Blood Pressure Mean 92 Blood Pressure Position Sitting Pulse Oximetry 97 98 Oxygen Delivery Method Room Air Room Air Sepsis Recent Fever Within 48 Hours No Sepsis New/Unexplained Change in Mental Status No Sepsis Action Taken by Nursing No Action Required 12/09/23 20:50 12/09/23 21:09 12/09/23 21:10 Temperature Temperature Source Pulse Rate 70 72 73 Pulse Rate from SpO2 Sensor 72 73 Pulse Rhythm Pulse Strength Respiratory Rate 22 22 21 Respiratory Effort / Characteristics Respiratory Depth Respiratory Pattern Blood Pressure Blood Pressure Mean Blood Pressure Position Pulse Oximetry 96 97 Oxygen Delivery Method Sepsis Recent Fever Within 48 Hours Sepsis New/Unexplained Change in Mental Status Sepsis Action Taken by Nursing 12/09/23 21:20 12/09/23 21:24 Temperature Temperature Source Pulse Rate 75 76 Pulse Rate from SpO2 Sensor 76 76 Pulse Rhythm Pulse Strength Respiratory Rate 20 15 Respiratory Effort / Characteristics Respiratory Depth Respiratory Pattern Blood Pressure 130/80 Blood Pressure Mean 96 Blood Pressure Position Pulse Oximetry 95 95 Oxygen Delivery Method Sepsis Recent Fever Within 48 Hours Sepsis New/Unexplained Change in Mental Status Sepsis Action Taken by Nursing Laboratory Data 12/09/23 20:57 12/09/23 20:57 Lab Results 12/09/23 Range/Units 20:57 WBC 8.17 (4.8-10.8) K/ul RBC 4.95 (4.70-6.10) M/uL Hgb 15.2 (14.0-18.0) g/dl Hct 45.7 (42.0-52.0) % MCV 92.3 (80.0-100.0) fL MCH 30.7 (25.0-34.0) pg MCHC 33.3 (32.0-36.0) g/dL RDW Std Deviation 44.5 (36.4-46.3) fL RDW Coeff of Dilcia 13.2 (11.5-14.5) % Plt Count 187 (130-400) K/uL MPV 10.0 (9.4-12.4) fL Immature Gran % (Auto) 0.2 % Neut % (Auto) 71.0 % Lymph % (Auto) 18.7 % [place] % (Auto) 8.3 % Eos % (Auto) 1.2 % Baso % (Auto) 0.6 % Neut # (Auto) 5.79 (1.40-6.50) K/uL Lymph # (Auto) 1.53 (1.20-3.40) K/uL [place] # (Auto) 0.68 H (0.11-0.59) K/uL Eos # (Auto) 0.10 (0.00-0.50) K/uL Baso # (Auto) 0.05 (0.00-0.20) K/uL Immature Gran # (Auto) 0.02 (0.01-0.20) K/uL PT 11.0 (9.0-12.0) Seconds INR 1.0 (0.9-1.1) Sodium 141 (136-145) mmol/L Potassium 4.3 (3.5-5.1) mmol/L Chloride 112 H (98-107) mmol/L Carbon Dioxide 26 (21-32) mmol/L Anion Gap 3 (3-11) BUN 25 H (6-23) mg/dl Creatinine 1.23 (0.6-1.4) mg/dl Est Cr Clr Drug Dosing 52.1 ml/min Est GFR ( Amer) 60.8 ml/min Est GFR (Non-Af Amer) 52.5 ml/min BUN/Creatinine Ratio 20.3 H (10-20) Glucose 131 H (70-99(Fasting)) mg/dl Calcium 9.4 (8.6-10.3) mg/dl Magnesium 2.1 (1.7-2.4) mg/dl Total Bilirubin 0.7 (0.2-1.0) mg/dl AST 34 (13-39) U/L ALT 34 (7-52) U/L Alkaline Phosphatase 65 (34-104) U/L Troponin I High Sens 5.8 (0-20) pg/ml Total Protein 6.6 (6.0-8.3) gm/dl Albumin 3.9 (3.4-5.0) gm/dl Globulin 2.7 (2.5-4.0) gm/dl Albumin/Globulin Ratio 1.4 (0.9-2) Lipase 24 (11-82) U/L TSH 5.227 H (0.300-4.500) uIu/ml Free T4 0.79 (0.61-1.60) ng/dl Imaging Data Radiologist's Impression: Head CT 12/09/23 20:36 Exam(s): CT HEAD Without Contrast EXAM: CT Head Without Intravenous Contrast CLINICAL HISTORY: Reason for exam: syncope; dizziness. TECHNIQUE: Axial computed tomography images of the head/brain without intravenous contrast. Automated exposure control was utilized for the study. A dose lowering technique was utilized adhering to the principles of ALARA. COMPARISON: 01/13/2022 FINDINGS: Brain: Unremarkable. No hemorrhage. Mild ischemic microangiopathy unchanged No edema. Ventricles: Unremarkable. No ventriculomegaly. Bones/joints: Unremarkable. No acute fracture. Soft tissues: Unremarkable. Sinuses: Unremarkable as visualized. No acute sinusitis. Mastoid air cells: Unremarkable as visualized. No mastoid effusion. IMPRESSION: Normal head/brain CT. Electronically signed by: Raheem Ramirez MD 12/09/23 21:29 PM Discharge Plan Visit Data Chief Complaint: Syncope (Near Syncope) Stated Complaint: NEAR SYNCOPE/DIZZY ED Provider: Elizabeth Cordova Discharge Problem: Episode of unresponsiveness Forms Stand Alone Forms: My [facility] [employer] Prescriptions Prescriptions: No Action pantoprazole 20 mg tablet,delayed release (DR/EC) 20 mg PO DAILYBB Qty: 90 1RF metoprolol succinate 25 mg tablet extended release 24 hr 25 mg PO QAM Qty: 90 3RF simvastatin 20 mg tablet 20 mg PO HS Qty: 90 3RF coenzyme Q10 [Co Q-10] 50 mg Capsule 50 mg PO QAM aspirin [Adult Low Dose Aspirin] 81 mg tablet,delayed release (DR/EC) 81 mg PO QAM ipratropium bromide 42 mcg (0.06 %) spray,non-aerosol 2 spray INTRANASAL .UP TO 3 TIMES A DAY PRN (Reason: Congestion) krill oil [id number] mg Capsule 1 cap PO QAM levothyroxine 25 mcg tablet 25 mcg PO DAILYBB Patient Comments: QAM Referrals Referrals: Jose Enrique Vincent MD [Primary Care Provider] -
[2023-12-09 21:29] LABS: Basophils # (auto) 0.05 K/uL (0.00-0.20); Basophils % (auto) 0.6 %; Eosinophils % (auto) 1.2 %; Hematocrit (blood only) 45.7 % (42.0-52.0); Hemoglobin 15.2 g/dl (14.0-18.0); Immature Granulocytes # (auto) 0.02 K/uL (0.01-0.20); Immature Granulocytes % (auto) 0.2 %; Lymphocytes # (auto) 1.53 K/uL (1.20-3.40); Lymphocytes % (auto) 18.7 %; Mean Corpuscular Hemoglobin 30.7 pg (25.0-34.0); Mean Corpuscular Hgb Conc 33.3 g/dL (32.0-36.0); Mean Corpuscular Volume 92.3 fL (80.0-100.0); Monocytes # (auto) 0.68 K/uL (0.11-0.59); Monocytes % (auto) 8.3 %; Neutrophils # (auto) 5.79 K/uL (1.40-6.50); Platelet Count 187 K/uL (130-400); RDW Coefficient of Variation 13.2 % (11.5-14.5); RDW Standard Deviation 44.5 fL (36.4-46.3); Red Blood Count 4.95 M/uL (4.70-6.10); White Blood Count 8.17 K/ul (4.8-10.8)
--- NOTE | 2023-12-09 21:30 | CT Scan Report ---
Exam(s): CT HEAD Without Contrast EXAM: CT Head Without Intravenous Contrast CLINICAL HISTORY: Reason for exam: syncope; dizziness. TECHNIQUE: Axial computed tomography images of the head/brain without intravenous contrast. Automated exposure control was utilized for the study. A dose lowering technique was utilized adhering to the principles of ALARA. COMPARISON: 01/13/2022 FINDINGS: Brain: Unremarkable. No hemorrhage. Mild ischemic microangiopathy unchanged No edema. Ventricles: Unremarkable. No ventriculomegaly. Bones/joints: Unremarkable. No acute fracture. Soft tissues: Unremarkable. Sinuses: Unremarkable as visualized. No acute sinusitis. Mastoid air cells: Unremarkable as visualized. No mastoid effusion. IMPRESSION: Normal head/brain CT. Electronically signed by: Raheem Ramirez MD 12/09/23 21:29 PM
[2023-12-09 21:46] LABS: Albumin Globulin Ratio 1.4 (0.9-2); Albumin Level 3.9 gm/dl (3.4-5.0); BUN Creatinine Ratio 20.3 (10-20); Bilirubin,Total 0.7 mg/dl (0.2-1.0); Calcium 9.4 mg/dl (8.6-10.3); Creatinine Clr Calc Pharmacy 52.1 ml/min; Est GFR (African American) 60.8 ml/min; Est GFR (Non-African American) 52.5 ml/min; Globulin 2.7 gm/dl (2.5-4.0); Magnesium 2.1 mg/dl (1.7-2.4); Potassium 4.3 mmol/L (3.5-5.1); Total Protein 6.6 gm/dl (6.0-8.3)
[2023-12-09 21:53] LABS: Troponin I High Sensitivity 5.8 pg/ml (0-20)
[2023-12-09 22:02] LABS: Thyroid Stimulating Hormone 5.227 uIu/ml (0.300-4.500)
[2023-12-09 22:38] LABS: T4 Free Thyroxine 0.79 ng/dl (0.61-1.60)
--- NOTE | 2023-12-09 23:21 | History & Physical Report ---
Date of Service December 09, 2023 Assessment & Plan (1) Syncope: Plan: Pt is a 88 yo male with PMH of HTN, CAD, thoracic aortic aneurysm, HLD, and hypothyroidism presenting after a syncopal episode. Syncope - lab work significant for no leukocytosis, Hgb 15.2, BUN/Cr 20.3, Cr 1.23, electrolytes WNL - head CT negative; CXR w/o signs of dissection, pneumothorax, or PNA - echo from 12/05/2022 showed EF 55-60%, LV w/ normal systolic function, moderate LVH, ascending aorta 4.4cm, aortic root 4.3cm (pt w/ known hx of aortic aneurysm- 2022 echo stable compared to prior echo in 2019, which was unchanged from 2018); will order repeat echo to ensure no significant changes - suspect current episode of syncope secondary to dehydration/vasovagal - will order bilateral carotid dopplers to r/o stenosis - will admit to med/tele to monitor heart rhythm HTN/CAD - continue home metoprolol 25 mg Hypothyroidism - TSH 5.227, free T4 0.79 upon admission - continue home levothyroxine 25 mcg daily while hospitalized - recommend dose adjustment as outpatient HLD - continue home simvastatin 20 mg Diet: heart healthy VTE ppx: lovenox Code: DNR/DNI Dispo: med/tele (2) Ascending aorta dilatation: (3) CAD in [place] artery: (4) Hypothyroidism: (5) Hyperlipidemia: History of Present Illness Chief Complaint: syncope Primary Care Provider: Jose Enrique Vincent MD Pt is a 88 yo male with PMH of HTN, CAD, thoracic aortic aneurysm, HLD, and hypothyroidism presenting after a syncopal episode. Pt was at his granddaughter's birthday libertarian earlier this evening when he felt "off." He describes a headache that is atypical for him- his states he never gets headaches. He was wobbly and leaning on a wall/cabinet. He did not fall. He told his family that he needed to use the restroom so his daughter, niece, and helped him to the bathroom. He was able to urinate standing up. However, after using the bathroom, his daughter describes that he was "gone." He did not fall but was not really responsive to conversation. He was then lowered to the ground because his legs were not able to move. After this he began to feel better. Pt states he has never passed out before. He denies lightheaded/dizziness, heart palpitations, or chest pain prior to his syncopal episode. He does note that he mowed the grass today and typically has a beer afterwards but did not drink one today. His daughter notes that he hadn't taken in any fluids all day. In the ER, no medications or interventions were given. Allergies Allergy/AdvReac Type Severity Reaction Status Date / Time neomycin Allergy Mild RASH Verified 10/03/23 09:21 polymyxin B Allergy Mild RASH Verified 10/03/23 09:21 Home Medications Medication Instructions Recorded Confirmed Type aspirin 81 mg tablet,delayed 81 mg PO QAM 03/29/19 12/09/23 History release (Adult Low Dose Aspirin) coenzyme Q10 50 mg capsule (Co 50 mg PO QAM 03/29/19 12/09/23 History Q-10) ipratropium bromide 42 mcg (0.06 2 spray intranasal .UP TO 3 TIMES 01/10/22 12/09/23 History %) nasal spray A DAY PRN Congestion krill 1,000 mg-omega-3 170 mg-dha 1 cap PO QAM 08/31/22 12/09/23 History 50 mg-epa 80 [id number] capsule (krill oil) pantoprazole 20 mg tablet,delayed 20 mg PO DAILYBB #90 tabs 11/15/22 12/09/23 Rx release metoprolol succinate 25 mg 25 mg PO QAM #90 tabs 03/02/23 12/09/23 Rx tablet,extended release 24 hr simvastatin 20 mg tablet 20 mg PO HS #90 tabs 10/17/23 12/09/23 Rx levothyroxine 25 mcg tablet 25 mcg PO DAILYBB 12/09/23 12/09/23 History Past Med/Surg History Medical History History of adenomatous polyp of colon Hypothyroidism CAD (coronary artery disease) Presumed coronary artery disease-stress echo 2010 with possible inferior ischemia; no cath Renal lesion CT 12/2020 [facility]; Dr. Adkins monitoring Abnormal chest CT 02/2020 [facility] - aneurysmal dilatation of the ascending thoracic aorta which measures up to 4.7 cm Pulmonary nodule follows with [facility] Pulm Poor historian History of squamous cell carcinoma History of 2019 novel coronavirus disease (COVID-19) 11/2019; cough, fever, chills; resolved Hypertension Hyperlipidemia Hearing loss BL GOOD Glaucoma bilt Benign localized hyperplasia of prostate with urinary obstruction Surgical History History of cataract surgery RT History of squamous cell carcinoma excision History of bladder surgery "to stretch bladder" History of tooth extraction History of transurethral resection of prostate History of foot surgery right foot great toe H/O right inguinal hernia repair Family History Sister Cancer Breast cancer Mother Cardiac disorder Family history of reaction to anesthesia per pt his mother developed alzheimer's from an anesthesia drug Alzheimer disease Father Cardiac disorder Denies family history of Ovarian cancer Prostate cancer Myocardial infarction Colorectal cancer Social History Smoking Status: Never smoker Second Hand Exposure: Yes (IN THE PAST); Do You Dip or Chew Tobacco: No; Hx Alcohol Use: Yes Alcohol type: beer Alcohol Intake Frequency: Monthly or Less Alcohol Intake Frequency Comment: One beer every 1-2 weeks. 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 Seatbelt Use: always Sunscreen Use: Yes Assistive Devices: Glasses and Hearing Aid - Bilateral Assistive Devices Comment: Pt. does not have BL hearing aides with him at this time Review of Systems Review of Systems: As per HPI Physical Exam Constitutional: NAD, vitals WNL. Respiratory: CTA bilaterally. Non labored breathing. No rhonchi, wheezing, or crackles. Cardiovascular: RRR. No murmurs noted. 3+ bilateral LE edema. 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 No FND appreciated. Psychiatric: Speech of normal pace and content. Mood and affect congruent. Results & Data Results & Data Vital Signs (Past 12 Hours) Vital Signs Temp Pulse Resp BP Pulse Ox O2 Del Method 12/09/23 21:24 76 15 130/80 95 12/09/23 21:20 75 20 95 12/09/23 21:10 73 21 97 12/09/23 21:09 72 22 12/09/23 20:50 70 22 96 12/09/23 20:48 76 22 12/09/23 20:36 98 Room Air 12/09/23 20:29 36.5 C 74 16 128/75 97 Room Air Laboratory Results Laboratory Results WBC 8.17 K/ul (4.8-10.8) 12/09/23 20:57 RBC 4.95 M/uL (4.70-6.10) 12/09/23 20:57 Hgb 15.2 g/dl (14.0-18.0) 12/09/23 20:57 Hct 45.7 % (42.0-52.0) 12/09/23 20:57 MCV 92.3 fL (80.0-100.0) 12/09/23 20:57 MCH 30.7 pg (25.0-34.0) 12/09/23 20:57 MCHC 33.3 g/dL (32.0-36.0) 12/09/23 20:57 RDW Std Deviation 44.5 fL (36.4-46.3) 12/09/23 20:57 RDW Coeff of Dilcia 13.2 % (11.5-14.5) 12/09/23 20:57 Plt Count 187 K/uL (130-400) 12/09/23 20:57 MPV 10.0 fL (9.4-12.4) 12/09/23 20:57 Immature Gran % (Auto) 0.2 % 12/09/23 20:57 Neut % (Auto) 71.0 % 12/09/23 20:57 Lymph % (Auto) 18.7 % 12/09/23 20:57 [place] % (Auto) 8.3 % 12/09/23 20:57 Eos % (Auto) 1.2 % 12/09/23 20:57 Baso % (Auto) 0.6 % 12/09/23 20:57 Neut # (Auto) 5.79 K/uL (1.40-6.50) 12/09/23 20:57 Lymph # (Auto) 1.53 K/uL (1.20-3.40) 12/09/23 20:57 [place] # (Auto) 0.68 K/uL (0.11-0.59) H 12/09/23 20:57 Eos # (Auto) 0.10 K/uL (0.00-0.50) 12/09/23 20:57 Baso # (Auto) 0.05 K/uL (0.00-0.20) 12/09/23 20:57 Immature Gran # (Auto) 0.02 K/uL (0.01-0.20) 12/09/23 20:57 PT 11.0 Seconds (9.0-12.0) 12/09/23 20:57 INR 1.0 (0.9-1.1) 12/09/23 20:57 Sodium 141 mmol/L (136-145) 12/09/23 20:57 Potassium 4.3 mmol/L (3.5-5.1) 12/09/23 20:57 Chloride 112 mmol/L (98-107) H 12/09/23 20:57 Carbon Dioxide 26 mmol/L (21-32) 12/09/23 20:57 Anion Gap 3 (3-11) 12/09/23 20:57 BUN 25 mg/dl (6-23) H 12/09/23 20:57 Creatinine 1.23 mg/dl (0.6-1.4) 12/09/23 20:57 Est Cr Clr Drug Dosing 52.1 ml/min 12/09/23 20:57 Est GFR ( Amer) 60.8 ml/min 12/09/23 20:57 Est GFR (Non-Af Amer) 52.5 ml/min 12/09/23 20:57 BUN/Creatinine Ratio 20.3 (10-20) H 12/09/23 20:57 Glucose 131 mg/dl (70-99(Fasting)) H 12/09/23 20:57 Calcium 9.4 mg/dl (8.6-10.3) 12/09/23 20:57 Magnesium 2.1 mg/dl (1.7-2.4) 12/09/23 20:57 Total Bilirubin 0.7 mg/dl (0.2-1.0) 12/09/23 20:57 AST 34 U/L (13-39) 12/09/23 20:57 ALT 34 U/L (7-52) 12/09/23 20:57 Alkaline Phosphatase 65 U/L (34-104) 12/09/23 20:57 Troponin I High Sens 5.8 pg/ml (0-20) 12/09/23 20:57 Total Protein 6.6 gm/dl (6.0-8.3) 12/09/23 20:57 Albumin 3.9 gm/dl (3.4-5.0) 12/09/23 20:57 Globulin 2.7 gm/dl (2.5-4.0) 12/09/23 20:57 Albumin/Globulin Ratio 1.4 (0.9-2) 12/09/23 20:57 Lipase 24 U/L (11-82) 12/09/23 20:57 TSH 5.227 uIu/ml (0.300-4.500) H 12/09/23 20:57 Free T4 0.79 ng/dl (0.61-1.60) 12/09/23 20:[address] 12/09/23 20:36 Exam(s): CT HEAD Without Contrast EXAM: CT Head Without Intravenous Contrast CLINICAL HISTORY: Reason for exam: syncope; dizziness. TECHNIQUE: Axial computed tomography images of the head/brain without intravenous contrast. Automated exposure control was utilized for the study. A dose lowering technique was utilized adhering to the principles of ALARA. COMPARISON: 01/13/2022 FINDINGS: Brain: Unremarkable. No hemorrhage. Mild ischemic microangiopathy unchanged No edema. Ventricles: Unremarkable. No ventriculomegaly. Bones/joints: Unremarkable. No acute fracture. Soft tissues: Unremarkable. Sinuses: Unremarkable as visualized. No acute sinusitis. Mastoid air cells: Unremarkable as visualized. No mastoid effusion. IMPRESSION: Normal head/brain CT. Electronically signed by: Raheem Ramirez MD 12/09/23 21:29 PM Supervising Physician Co-Signing Physician Notes Patient seen and examined, chart reviewed, case discussed with Dr. Musa and I agree with the assessment and plan as above. Patient with syncopal event earlier today. On exam he is afebrile, HD stable HEENT - NC/AT, PERRL, MMM Heart - +S1/S2, regular, no m/r/g Lungs - CTA anteriorly Abd - soft, NT/NT Ext - warm, well perfused, +edema bilaterally Labs and images reviewed, largely unremarkable CT of the head unremarkable Assessment/Plan -Suspect vaso-vagal syncope. Will check echo and carotid dopplers, telemetry monitoring -Remainder as above Resident Activity Tracking Resident Involvement: Resident Care Provided Care Provided: Adult [facility]
[2023-12-09] MEDS ORDERED: ONDANSETRON INJ 2 MG/ML 2 ML VIAL IV PRN (23:33)
[2023-12-09] MEDS ORDERED: ACETAMINOPHEN 325 MG TAB PO PRN (23:33)
[2023-12-09] MEDS ORDERED: POLYETHYLENE (MIRALAX) 17 GM PACK PO PRN (23:33)
[2023-12-09] MEDS ORDERED: MELATONIN 3 MG TAB PO PRN (23:33)
[2023-12-10] MEDS: SIMVASTATIN 20 MG TAB PO ONE (00:35)
[2023-12-10] MEDS ORDERED: IPRATROPIUM BROMIDE NASAL SPRAY 0.06% 15ML NAE PRN (01:41)
[2023-12-10] MEDS: LACTATED RINGER'S 1,000 ML IV SCH (01:48)
--- NOTE | 2023-12-10 05:02 | Billing Data ---
Date of Service December 10, 2023 Coding Level of Care Code 28910 INT INP/OBS CARE
[2023-12-10] MEDS: LEVOTHYROXINE SODIUM 25 MCG TABLET PO SCH (05:46)
[2023-12-10] MEDS: PANTOprazole 40 MG TAB PO SCH (05:46)
--- NOTE | 2023-12-10 07:07 | Ultrasound Report ---
US carotid doppler BI CLINICAL HISTORY: 88 years-old Male with syncope. COMPARISON: None TECHNIQUE: Multiple real time sonographic images of the carotid bifurcations were obtained assessing fung scale, color Doppler and spectral wave form appearance FINDINGS: RIGHT CAROTID: The peak systolic velocity measured within the right ICA is 56 cm/sec. The end diast olic velocity measured 14 cm/sec. The ICA to CCA ratio measured 1.0 which correlates with a stenosis of 0-50%. There is mild atherosclerosis. LEFT CAROTID: The peak systolic velocity measured within the left ICA is 50 cm/sec. The end diastol ic velocity measured 11 cm/sec. The ICA to CCA ratio measured 0.7 which correlates with a stenosis of 0-50%. There is mild atherosclerosis. There is normal antegrade vertebral flow bilaterally. IMPRESSION: 1. No hemodynamically significant stenosis or significant atherosclerotic plaquing. 2. Normal antegrade vertebral flow bilaterally. ACT 112: Negative or not required by law. The above report was generated using voice recognition software. It may contain grammatical, syntax o r spelling errors. Electronically signed by: Wade Muñiz M.D. 12/10/2023 7:05 AM
--- NOTE | 2023-12-10 07:15 | Electrocardiogram Report ---
Test Reason : Blood Pressure : / mmHG Vent. Rate : 070 BPM Atrial Rate : 070 BPM P-R Int : 198 ms QRS Dur : 110 ms QT Int : 412 ms P-R-T Axes : 058 -10 -05 degrees QTc Int : 444 ms Normal sinus rhythm Incomplete right bundle branch block Abnormal ECG When compared with ECG of 27-NOV-2019 23:41, No significant change was found Confirmed by Jose Enrique Lora ([id number]) on 12/10/2023 7:14:41 AM Referred By: REFERRED SELF Confirmed By:Jerod Lora
--- NOTE | 2023-12-10 07:56 | XRay Report ---
XR chest 1V portable HISTORY: 88 years-old Male syncope acute syncope COMPARISON: CTA chest 11/08/2021 TECHNIQUE: AP view of the chest FINDINGS: Cardiac silhouette is enlarged. Mild chronic interstitial coarsening without pneumothorax, pleural ef fusion or airspace consolidation. Bones appear grossly intact. Healed chronic right-sided rib fractur es. IMPRESSION: No acute process. ACT 112: Negative or not required by law. The above report was generated using voice recognition software. It may contain grammatical, syntax o r spelling errors. Electronically signed by: Wade Muñiz M.D. 12/10/2023 7:54 AM
[2023-12-10] MEDS: ASPIRIN 81 MG ECTAB PO SCH (08:26)
[2023-12-10] MEDS: METOPROLOL SUCC 25MG EXT REL TAB PO SCH (08:26)
--- NOTE | 2023-12-10 13:05 | XCELERA ---
[id number]
--- NOTE | 2023-12-10 13:20 | Discharge Summary ---
Date of Service December 10, 2023 Admission HPI Per Admitting Provider Pt is a 88 yo male with PMH of HTN, CAD, thoracic aortic aneurysm, HLD, and hypothyroidism presenting after a syncopal episode. Pt was at his granddaughter's birthday democrat earlier this evening when he felt "off." He describes a headache that is atypical for him- his states he never gets headaches. He was wobbly and leaning on a wall/cabinet. He did not fall. He told his family that he needed to use the restroom so his daughter, niece, and helped him to the bathroom. He was able to urinate standing up. However, after using the bathroom, his daughter describes that he was "gone." He did not fall but was not really responsive to conversation. He was then lowered to the ground because his legs were not able to move. After this he began to feel better. Pt states he has never passed out before. He denies lightheaded/dizziness, heart palpitations, or chest pain prior to his syncopal episode. He does note that he mowed the grass today and typically has a beer afterwards but did not drink one today. His daughter notes that he hadn't taken in any fluids all day. In the ER, no medications or interventions were given. Admission Exam Per Admitting Provider Constitutional: NAD, vitals WNL. Respiratory: CTA bilaterally. Non labored breathing. No rhonchi, wheezing, or crackles. Cardiovascular: RRR. No murmurs noted. 3+ bilateral LE edema. 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 No FND appreciated. Psychiatric: Speech of normal pace and content. Mood and affect congruent. Principal Diagnosis Vasovagal syncope Discharge Exam General: AAOx3, afebrile, NAD HEENT: AT, NC, [place], EOM intact Throat: normal to visual exam Chest: symmetric chest expansions with respiration CV: RRR, no r/m/g Pulm: CTA bilaterally, normal respiratory effotrt, no respiratory distress Extremities: +1 pitting edema in bilateral LE, no calf tenderness Discharge Data Allergies Allergy/AdvReac Type Severity Reaction Status Date / Time neomycin Allergy Mild RASH Verified 10/03/23 09:21 polymyxin B Allergy Mild RASH Verified 10/03/23 09:21 Consultations 12/09/23 23:17 ED Decision to Admit Stat Ordered Studies 12/09/23 20:36 CT head/brain wo con Stat 12/10/23 US carotid doppler BI Routine Hospital Course (1) Syncope: (2) Ascending aorta dilatation: (3) CAD in [place] artery: (4) Hypothyroidism: (5) Hyperlipidemia: Plan Pt is a 88 yo male with PMH of HTN, CAD, thoracic aortic aneurysm, HLD, and hypothyroidism presenting after a syncopal episode. Syncope (Resolved) -On day of syncopal episode, patient had been going his lawn and did not consume many fluids during that day -Patient without neurological deficits before during or after syncopal episode -Lab work done during hospitalization unremarkable save for a relatively increased creatinine of 1.23 when compared to patient's baseline (0.8-1.06). -Chest x-ray and head CT both normal -TTE done during hospital admission demonstrating normal left ventricular systolic function with ejection fraction between 55 and 60%, mildly dilated left atrium, elevated right ventricular systolic pressure at 30-40 mmHg (normal RV size and function), and mild aortic root dilation which has been noted on prior echocardiograms. -Patient's history and symptoms when combined with relatively increased creatinine suggest vasovagal syncope as a result of dehydration as a cause for his syncopal episode. -Patient advised to increase his oral hydration once he is discharged and given the example to consume half of his weight in ounces of water daily. -Patient in agreement and all questions answered. HTN/CAD (Chronic, stable) - continue home metoprolol 25 mg Hypothyroidism (Chronic) - TSH 5.227, free T4 0.79 upon admission - continue home levothyroxine 25 mcg daily for now - recommend dose adjustment as outpatient HLD (Chronic, stable) - continue home simvastatin 20 mg Patient found stable and fit to be discharged home today with outpatient follow- up with his primary care provider. Total Time Total Time Spent Total Time Spent (In Minutes): <30 Discharge Plan Discharge Items Patient Disposition: Home - Self-Care Reason For Visit: SYNCOPE Discharge Diagnosis: Vasovagal syncope Activity: Per Instructions section Non-emergency contact: Primary Care Provider Call non-emergency contact if: your symptoms worsen and your temperature is above 101 Follow-up/Referrals: Jose Enrique Vincent MD [Primary Care Provider] - 12/20/23 2:00 pm (with EAMON Mora. ) Diet: Heart Healthy Addtl Attending Provider Instructions: You are admitted to the hospital after experiencing a syncopal episode in your home. We believe that this syncopal episode may have, as a result of physical exertion while mowing her lawn without enough oral hydration/dehydration. Due to this, recommend that you increase your amount of water consumption daily to at least 60 ounces per day or half of your body weight in ounces. A discharge summary will be sent to your primary care physician to ensure continuity of care. Please bring this discharge summary with you to your next office appointment so that your provider can review it at that time. Follow-up appointments: Make a follow-up appointment with your PCP within the next week. It is very important that you follow up with them shortly after discharge from the hospital. Keep all your follow-up appointments as already scheduled. If you cannot make an appointment, notify your provider. Medications: Your medication list has been reviewed and reconciled upon discharge to ensure a ccuracy and continuity of care. An updated list of all your medications is included with your hospital discharge paperwork. Please review this list closely, and make note of any changes. If you have any issues filling these prescriptions, please call [phone] and ask to leave a message for Dr. Banuelos. Take your medications as instructed; do not skip a dose of your medicines. Make sure all of your doctors know every medicine you are taking (including qxnd-qon-dmolzcj medicines, vitamins, and supplements). Call your primary care provider before taking any new medicines (including over- the-counter medicines, vitamins, and supplements), because some of these may interact with your current medications, or may make your symptoms worse. Tell your primary care provider if you cannot afford your medications. CONTACT YOUR PRIMARY CARE PROVIDER if you experience any of the following: Worsening of symptoms Fever, chills, or fatigue Difficulty following your treatment plan, or difficulty taking medications CALL 911 OR GO TO THE EMERGENCY DEPARTMENT if you experience any of the following: Sudden, severe abdominal pain or nausea/vomiting Severe chest pain, or chest pain that radiates (moves) to your jaw or arm Sudden, severe shortness of breath or difficulty breathing Thank you for allowing us to participate in your care. Pending Studies at Discharge: No Stand-Alone Forms: My [facility], Smoking Cessation Medications and DC Order Prescriptions: Continued pantoprazole 20 mg tablet,delayed release (DR/EC) 20 mg PO DAILYBB Qty: 90 1RF metoprolol succinate 25 mg tablet extended release 24 hr 25 mg PO QAM Qty: 90 3RF simvastatin 20 mg tablet 20 mg PO HS Qty: 90 3RF coenzyme Q10 [Co Q-10] 50 mg Capsule 50 mg PO QAM aspirin [Adult Low Dose Aspirin] 81 mg tablet,delayed release (DR/EC) 81 mg PO QAM ipratropium bromide 42 mcg (0.06 %) spray,non-aerosol 2 spray INTRANASAL .UP TO 3 TIMES A DAY PRN (Reason: Congestion) krill oil [phone] mg Capsule 1 cap PO QAM levothyroxine 25 mcg tablet 25 mcg PO DAILYBB Patient Comments: QA Discharge Orders: Discharge Order (Routine); Ordered 12/10/23 Ordered By: Linnea Banuelos Admission Data Admit Date/Time: 12/09/23 23:33 Attending Provider: Raheem Martinez Admit Provider: Christine Choi Primary Care Provider: Jose Enrique Vincent Other Providers: Christine Choi Other Interventions: Discharge Summary Assessment (RN) Last Done: 12/10/23 13:47 Supervising Physician Co-Signing Physician Notes I personally examined the patient and verified all nick points of history and exam, discussed case, and agree with decision making with Dr Banuelos feeling good feels fine feels his baseline would like to go home vitals noted nad heent nc at mmm breathing unlabored no accessory muscles good effort skin no rashes no pallor or icterus neuro no focal deficits. without assist pt was able to sit up in bed, stand on his own, walk over to chair, sit on his own, return to bed on his own. slightly wide based gait but steady - he noted this is all his normal dehydration/vasovagal - fluids have been given. safe/stable for dc. discussed hydrating PO and not trusting thirst given age - keep track of fluid intake otherwise as above Resident Activity Tracking Resident Involvement: Resident Care Provided Care Provided: Adult Hospital Medicine
--- NOTE | 2023-12-10 14:32 | Billing Data ---
Date of Service December 10, 2023 Coding Level of Care Code 61031 IN/OBS DISCH 30 MIN/LESS
[2023-12-10] MEDS ORDERED: SIMVASTATIN 20 MG TAB PO SCH (21:00)
[2023-12-11] MEDS ORDERED: ENOXAPARIN INJ 40 MG/0.4 ML SYR SQ SCH (09:00)
== END 2023-12-10 14:32 | disposition home or self-care (01) | DRG 312 ==
LOC: ED 20:33 → SUATTDRO 23:33 → 4W 23:33 → INTOOBSV 23:33 → 4W 12-10 01:49

== ENCOUNTER 2025-07-08 01:39 | Inpatient (IN) ==
--- NOTE | 2025-07-08 01:50 | Emergency Department Note ---
Impression & Plan Aortic dissection, Pneumonia ED Provider Note CHIEF COMPLAINT: Leg swelling HISTORY OF PRESENTING ILLNESS: The patient is a pleasant, 89-year-old male with past medical history ascending aorta dilatation, venous insufficiency of BLE, dilated aortic root, HTN, and CAD for evaluation of left lower extremity edema, with redness. The patient states swelling has worsened over the last few days. He reports the pain became severe tonight while he was trying to sleep. Patient's called EMS, and while patient was and route, he developed central chest pain, that was dull. He reports chest pain is current, does not radiate, he has no diaphoresis, or nausea or vomiting. He reports no abdominal pain. He is slightly hypotensive, with otherwise stable vital signs. REVIEW OF SYSTEMS: See HPI for pertinent positives and pertinent negatives. ALLERGIES: See below MEDICATIONS: See below PAST MEDICAL HISTORY: See below PHYSICAL EXAM: VITALS: Vitals are noted on the nurse's note and reviewed by myself. Hypotension, otherwise stable. GENERAL: 89-year-old male, in no acute distress, nondiaphoretic, well-developed well-nourished. SKIN: BLE edema, left greater than right. Cellulitis anterior left lower extremity. No weeping, no drainage. DP pulse intact. HEAD: Normocephalic atraumatic. EYES: Pupils equal round and reactive to light and accommodation. Conjunctivae without injection, sclerae without icterus. Extraocular movements intact. NECK: Supple without nuchal rigidity. No JVD. HEART: Regular rate and rhythm without murmurs gallops or rubs. LUNGS: Fine crackles, bilateral bases. ABDOMEN: Positive bowel sounds x 4. Soft, nontender, without masses or organomegaly. Morgan sign negative. No guarding or rebound tenderness. MUSCULOSKELETAL: No muscle atrophy, erythema, or edema noted. Strength 5/5 throughout. NEURO: Patient was alert and oriented to person place and time. No focal neurological deficits. DIFFERENTIAL DIAGNOSIS: Cardiac ischemia, aortic dissection, pulmonary embolism, pneumothorax, pneumonia, pericarditis, myocarditis, esophageal rupture, GERD, cholecystitis, pancreatitis, musculoskeletal, cellulitis, DVT, musculoskeletal, infection, joint effusion, trauma, lymphedema, idiopathic, CHF, as well as other pathologies. ED COURSE AND MEDICAL DECISION MAKING: HISTORY FROM INDEPENDENT HISTORIAN: at bedside serving as secondary historian. MEDICATIONS GIVEN: 500 cc bolus NSS, 2 g IV Rocephin MONITOR: Continuous cardiac cath tech: Order was placed for continuous cardiac cath tech. Patient was placed on the cardiac cath tech and continuous pulse ox. Patient was noted to be in normal sinus rhythm at an initial rate of 64 bpm per my interpretation. EKG: EKG was interpreted by myself as SR with occasional PVC's at a rate of 68bpm, with incomplete RBBB. INTERPRETATION OF LABS: I interpreted the labs with full lab results as below in the lab section of this note. Pertinent lab results discussed in the MDM section below. INTERPRETATION OF IMAGING: Imaging studies were interpreted by myself and read by radiology as per the imaging section of this note. ESCALATION OF CARE CONSIDERED: Transfer considered, however, patient is not a candidate for surgical intervention. CONSULTATIONS: Dr. Davies, Dr. Martinez [facility] MDM SUMMARY: The patient is a pleasant, 89-year-old male who arrives to the emergency department for evaluation of the above-stated complaint. Saline lock was established, lab work was obtained. CBC shows leukocytosis 17.36, no anemia. CMP unremarkable. Troponin 10.5, BNP 79, lactate 3.7. Blood cultures obtained. Patient was provided a 500 cc bolus of NSS, as well as 2 g of IV Rocephin for antimicrobial coverage. Chest x-ray imaging per my interpretation shows concern for widened mediastinum. CT PE study, as well as CTA imaging of the chest/abdomen/pelvis was obtained. Upon patients return from CT he entered into a wide complex tachycardia in the 130-140 range. The patient stayed in this rhythm for approximately 15 minutes, before coughing and returning to sinus rhythm. CTA imaging shows new evidence of aortic dissection extending from aortic root to proximal part of the left common iliac artery and the entire length of the right external common iliac and right external iliac artery up to the bifurcation. CTA imaging shows extension into the right brachiocephalic artery. 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 Patient also has diffuse ground glass haze subpleural atelectasis involving the dependent portion of both lower lobes and lingula suggestive of insufficient inspiration versus pneumonia. I spoke with Dr. Winston from IC and Dr. Martinez from CT surgery, at [facility]. According to Dr. Martinez, the patient is not a surgical candidate and does not require transfer from his standpoint. Dr. Winston agreed to accept the patient for BP management however, the patient and agreed staying closer to home is best since the patient is nonsurgical. The patient will be admitted to the [place] hospitalist group for BP management, IV abx, and comfort measures. Dr. Syed agreed to accept the patient under his services. Please refer to his documentation for further patient workup and care. The patient's case was discussed with Dr. Snell, who agreed with my evaluation and treatment plan. I have personally spent greater than 50 minutes of critical care time in the direct management of this patient. This includes bedside care, interpretation of diagnostic studies, and testing, discussion with consultants, patient, and family members, and other required patient management activities. This 50 minutes is in excess of all separately billable procedures. The chart was completed utilizing [employer] Speech voice recognition software. Grammatical errors, random word insertions, pronoun errors, and incomplete sentences are an occasional consequence of this system due to software limitations, ambient noise, and hardware issues. Any formal questions or concerns about the content, text, or information contained within the body of this dictation should be directly addressed to the provider for clarification. Past Med/Surg History Problem List (Updated 07/08/25 @ 04:52 by EAMON Krause) Pneumonia (Acute) Aortic dissection (Acute) Ascending aorta dilatation 4.7cm February 2020 Bilateral hearing loss due to cerumen impaction Hypothyroidism Renal cyst Raynauds disease Venous insufficiency of both lower extremities Abnormal CT scan, chest Trigger finger, right middle finger History of squamous cell carcinoma in situ of skin (Acute) Lipoma (Acute) Sebaceous cyst (Acute) Pulmonary nodule Vasomotor rhinitis (Acute) Telangiectasia (Acute) Seborrheic keratosis (Acute) Renal mass, left (Acute) Prostatitis (Acute) Incontinence (Acute) Hemangioma of skin (Acute) Hearing loss (Acute) BL GOOD Glaucoma (Acute) bilt Dilated aortic root (Acute) Actinic keratosis (Acute) BPH NOS w ur obs/LUTS Hypertension CAD (coronary artery disease) Presumed coronary artery disease-stress echo 2010 with possible inferior ischemia; no cath History of adenomatous polyp of colon Medical History History of 2019 novel coronavirus disease (COVID-19) 11/2019; cough, fever, chills; resolved Syncope Episode of unresponsiveness CAD in [place] artery Renal lesion CT 12/2020 [place]; Dr. Adkins monitoring Abnormal chest CT 02/2020 [place] - aneurysmal dilatation of the ascending thoracic aorta which measures up to 4.7 cm Pulmonary nodule follows with [place] Pulm Poor historian History of squamous cell carcinoma Hyperlipidemia Surgical History History of cataract surgery RT History of squamous cell carcinoma excision History of bladder surgery "to stretch bladder" History of tooth extraction History of transurethral resection of prostate History of foot surgery right foot great toe H/O right inguinal hernia repair Family History Sister Cancer Breast cancer Mother Cardiac disorder Family history of reaction to anesthesia per pt his mother developed alzheimer's from an anesthesia drug Alzheimer disease Father Cardiac disorder Denies family history of Ovarian cancer Prostate cancer Myocardial infarction Colorectal cancer Social History Smoking Status: Never smoker Second Hand Exposure: Yes (IN THE PAST); Do You Dip or Chew Tobacco: No; Hx Alcohol Use: Yes Alcohol type: beer Alcohol Intake Frequency: Monthly or Less Alcohol Intake Frequency Comment: One beer every 1-2 weeks. Hx Substance Use: No Preferred Language: Belarusian Communication Ability: Effective Visual Impairment: Limited Hearing Ability: Use of Hearing Aid Manufacturing Intern Required: No Beliefs That Will Affect Care: None marital status: Current Living Situation: Spouse Current Living Situation Comment: Lives w/ spouse at home current occupational status: retired current occupation: [employer] Feels Safe at Home: Yes Childhood Exposure to Second-Hand Smoke: No Diet: regular caffeine: Yes during the past year weight has: remained stable Dental Care, Regularly: Yes Physical Activity Frequency: Daily Physical Activity Frequency Comment: Patient rides bicycle about 10 blocks every day. Seatbelt Use: always Sunscreen Use: Yes Assistive Devices: Glasses and Hearing Aid - Bilateral Allergies Allergies Allergy/AdvReac Type Severity Reaction Status Date / Time neomycin Allergy Mild RASH Verified 07/08/25 02:19 polymyxin B Allergy Mild RASH Verified 07/08/25 02:19 Home Meds Home Medications Medication Instructions Recorded Confirmed aspirin 81 mg tablet,delayed 81 mg PO QAM 03/29/19 07/08/25 release (Adult Low Dose Aspirin) coenzyme Q10 50 mg capsule (Co 50 mg PO QAM 03/29/19 07/08/25 Q-10) krill 500 mg-omega-3 150 mg-dha 45 1 cap PO QAM 07/08/25 07/08/25 mg-epa 75 [id number] capsule (krill oil) Previous Rx's Medication Instructions Recorded simvastatin 20 mg tablet 20 mg PO HS #90 tabs 10/09/24 metoprolol succinate 25 mg 25 mg PO QAM #90 tabs 11/28/24 tablet,extended release 24 hr pantoprazole 20 mg tablet,delayed 20 mg PO DAILYBB #90 tabs 04/23/25 release levothyroxine 25 mcg tablet 25 mcg PO DAILYBB #90 tabs 05/21/25 Results & Data (ED) Vital Signs Vital Signs - 24 hr 07/08/25 01:51 07/08/25 01:51 07/08/25 02:21 Temperature 36.4 C L Temperature Source Oral Pulse Rate 64 64 Pulse Rate [Apical] 86 Pulse Rhythm Regular Regular Pulse Rhythm [Apical] Regular Pulse Strength Normal Pulse Strength [Apical] Normal Respiratory Rate 18 18 18 Respiratory Effort / Characteristics Non-Labored Spontaneous Non-Labored Spontaneous Respiratory Depth Normal Normal Respiratory Pattern Regular Regular Blood Pressure 95/50 L Blood Pressure [Right Arm] 98/45 L Blood Pressure Mean 65 Blood Pressure Mean [Right Arm] 62 Blood Pressure Position Semi-fowlers Blood Pressure Position [Right Arm] Semi-fowlers Pulse Oximetry 98 94 97 Oxygen Delivery Method Room Air Room Air Room Air Sepsis Recent Fever Within 48 Hours No Sepsis New/Unexplained Change in Mental Status N/A Sepsis Action Taken by Nursing No Action Required 07/08/25 02:33 07/08/25 03:00 07/08/25 03:50 Temperature Temperature Source Pulse Rate 65 Pulse Rate [Apical] 88 94 H Pulse Rhythm Pulse Rhythm [Apical] Regular Pulse Strength Pulse Strength [Apical] Normal Respiratory Rate 18 20 Respiratory Effort / Characteristics Non-Labored Spontaneous Non-Labored Spontaneous Respiratory Depth Normal Normal Respiratory Pattern Regular Regular Blood Pressure Blood Pressure [Right Arm] 118/58 L 99/67 L Blood Pressure Mean Blood Pressure Mean [Right Arm] 78 77 Blood Pressure Position Blood Pressure Position [Right Arm] Semi-fowlers Pulse Oximetry 97 Oxygen Delivery Method Room Air Room Air Sepsis Recent Fever Within 48 Hours Sepsis New/Unexplained Change in Mental Status Sepsis Action Taken by Longterm Medications Current Medication List: was personally reviewed by me Laboratory Data Attestation: I reviewed the patient's lab results. 07/08/25 01:55 07/08/25 01:55 Lab Results 07/08/25 07/08/25 Range/Units 01:55 03:58 WBC 17.36 H (4.8-10.8) K/ul RBC 4.66 L (4.70-6.10) M/uL Hgb 14.6 (14.0-18.0) g/dl Hct 43.0 (42.0-52.0) % MCV 92.3 (80.0-100.0) fL MCH 31.3 (25.0-34.0) pg MCHC 34.0 (32.0-36.0) g/dL RDW Std Deviation 44.6 (36.4-46.3) fL RDW Coeff of Dilcia 13.2 (11.5-14.5) % Plt Count 185 (130-400) K/uL MPV 9.1 L (9.4-12.4) fL Immature Gran % (Auto) 0.5 % Neut % (Auto) 77.8 % Lymph % (Auto) 14.0 % Posey % (Auto) 6.3 % Eos % (Auto) 1.0 % Baso % (Auto) 0.4 % Neut # (Auto) 13.50 H (1.40-6.50) K/uL Lymph # (Auto) 2.43 (1.20-3.40) K/uL Posey # (Auto) 1.10 H (0.11-0.59) K/uL Eos # (Auto) 0.17 (0.00-0.50) K/uL Baso # (Auto) 0.07 (0.00-0.20) K/uL Immature Gran # (Auto) 0.09 (0.01-0.20) K/uL Sodium 141 (136-145) mmol/L Potassium 4.4 (3.5-5.1) mmol/L Chloride 108 H (98-107) mmol/L Carbon Dioxide 25 (21-32) mmol/L Anion Gap 8 (3-11) BUN 21 (6-23) mg/dl Creatinine 1.01 (0.6-1.4) mg/dl Est Cr Clr Drug Dosing 61.7 ml/min eGFR 71.53 BUN/Creatinine Ratio 20.8 H (10-20) Glucose 128 H (70-99(Fasting)) mg/dl Lactate 3.7 H* 2.4 H* (0.4-2.0) mmol/L Calcium 9.1 (8.6-10.3) mg/dl Magnesium 2.0 (1.7-2.4) mg/dl Total Bilirubin 0.7 (0.2-1.0) mg/dl Direct Bilirubin 0.2 (0-0.2) mg/dl AST 34 (13-39) U/L ALT 36 (7-52) U/L Alkaline Phosphatase 58 (34-104) U/L Troponin I High Sens 10.5 (0-20) pg/ml B-Natriuretic Peptide 79 (0-100) pg/ml Total Protein 6.6 (6.0-8.3) gm/dl Albumin 4.0 (3.4-5.0) gm/dl Procalcitonin 0.03 (0-0.5) ng/ml Administered Medications Discontinued Medications Furosemide (Furosemide 40 Mg/4 Ml Vial) 40 mg IV ONE ONE Stop: 07/08/25 03:08 Last Admin: 07/08/25 03:49 Dose: Not Given Documented By: SUNDAY Sodium Chloride (Nss) 500 mls @ 999 mls/hr IV .Q31M ONE Stop: 07/08/25 02:55 Last Admin: 07/08/25 03:49 Dose: 999 mls/hr Documented By: SUNDAY Ceftriaxone Sodium (Rocephin) 2,000 mg in 50 mls @ 100 mls/hr IV NOW STA Stop: 07/08/25 02:58 Last Admin: 07/08/25 03:49 Dose: 100 mls/hr Documented By: SUNDAY Ioversol (Optiray 320 125ml) 125 ml IV ONCE ONE Stop: 07/08/25 03:40 Last Admin: 07/08/25 03:39 Dose: 118 ml Documented By: DREAD Ioversol (Optiray 320 125ml) 125 ml IV ONCE ONE Stop: 07/08/25 03:45 Last Admin: 07/08/25 03:45 Dose: 118 ml Documented By: DREAD Imaging Data Attestation: I personally reviewed and interpreted this imaging study as follows: Radiologist's Impression: Venous Doppler Study 07/08/25 01:50 EXAM: US venous doppler LE RT CLINICAL HISTORY: Edema. TECHNIQUE: Ultrasound examination of the right lower extremity veins was performed in real time and with duplex imaging. One or more of the following was performed: spectral analysis, resistive index, waveform analysis, and pulsed Doppler. The examination was limited due to right lower extremity edema. COMPARISON: 04/06/2023 Bilateral lower extremity venous Doppler. FINDINGS: Normal phasic, non-pulsatile, and spontaneous flow is noted in the right GSV, common femoral, superficial femoral, popliteal, anterior tibial, posterior tibial, and peroneal veins. The visualized veins of the right lower extremity demonstrate normal compressibility. No sonographic evidence of acute deep vein thrombosis (DVT) is detected in the visualized veins of the lower extremity. Compression and Augmentation: All evaluated veins compress fully with applied transducer pressure. Augmentation of venous flow is noted with distal compression. Additional Findings: No evidence of intraluminal thrombus. Edema of the right calf is noted, which limits visualization of the calf veins. IMPRESSION: 1. No sonographic evidence of acute DVT is detected at the time of examination. 2. Edema of the right calf is noted, limiting visualization of the calf veins. This is an interval new finding. 3. Otherwise, there are no interval changes concerning the right lower extremity compared to the prior study. Disclaimer: DVT could be missed early in the disease when clot burden is minimal. For patients with moderate and high pretest probability of DVT and negative ultrasound, the [employer] clinical guidelines recommend testing with a D-dimer assay or repeat ultrasound in 5-7 days. If symptoms worsen, the Society of Radiologists in Ultrasound recommends repeating ultrasound even earlier. Electronically signed by Tanmay Marie 07-08-2025 03:43 AM Chest X-Ray 07/08/25 01:51 EXAM: XR chest 1V portable CLINICAL HISTORY: Sepsis TECHNIQUE: An X-ray image of the chest was obtained in AP projection. 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 FINDINGS: Parenchymal opacities/fullness is noted involving the right perihilar region. Cardiomegaly. Unfolding of the aorta. The rest of both lungs are clear. The cardiomediastinal silhouette is within normal limits. No acute osseous abnormality. IMPRESSION: Parenchymal opacities/fullness is noted involving the right perihilar region?stable. Cardiomegaly?stable. Unfolding of the aorta?stable. Electronically signed by Tee Boris 07-08-2025 03:14 AM Chest CTA 07/08/25 03:06 EXAM: CT angio chest PE protocol CLINICAL HISTORY: PE TECHNIQUE: Contiguous axial images were obtained from the neck base through the upper abdomen following intravenous administration of iodinated contrast material. Angiographic images were processed, and 3D MIP images were acquired for interpretation. If IV contrast material had not been administered, the likelihood of detecting abnormalities relevant to the patient's condition would have been substantially decreased. Coronal and sagittal 3D MIPs were likewise performed and indicated to increase the sensitivity of detecting diffuse clinically relevant pathology. CT scan was performed according to ALARA (as low as reasonably achievable). COMPARISON: 12:04:34 WAISTBAND SETTER LOCKSTITCH . FINDINGS: Aneurysmal dilatation of the ascending aorta with diameter measuring up to 46 mm. Evidence of flap is seen noted involving the ascending, arch, and visualized descending thoracic aorta; this represent aortic dissection. This flap is seen extending to involve right brachiocephalic artery artery. The visualised extent of right brachiocephaic artery appears thrombosed. New finding. The false lumen shows poor contrast enhancement as compared to the true lumen. Diffuse ground-glass haze with subpleural atelectasis is noted involving the dependent portions of both lower lobes and lingula, suggesting the possibility of being due to insufficient inspiration. Small pulmonary cysts seen. New calcified granuloma in left lower lobe. Adequate contrast bolus without evidence of pulmonary embolism. The central airways are patent. No pleural effusion. There are coronary artery and aortic atherosclerotic calcifications. No pericardial effusion is identified. The thyroid is unremarkable. Small mediastinal lymphnodes are seen-new. No suspicious lytic or sclerotic osseous lesions are identified. IMPRESSION: Aneurysmal dilatation of ascending aorta with diameter measuring up to 46 mm?stable. Evidence of flap is noted involving the ascending, arch, and visualized descending thoracic aorta; this represents aortic dissection.?new finding. False lumen is thrombosed. This flap is seen extending to involve right brachiocephalic artery artery. The visualised extent of right brachiocephaic artery appears thrombosed. New finding. Diffuse ground-glass haze with subpleural atelectasis is noted involving dependent portions of both lower lobes and lingula, suggesting possibility of being due to insufficient inspiration?increased. Previous pleural effusion is resolved. Small mediastinal lymphnodes are seen-new. Electronically signed by Boris Oliveira 07-08-2025 04:21 AM Discharge Plan Visit Data Chief Complaint: Leg Injury/Pain Stated Complaint: leg pain ED Provider: Marcella Snell ED Midlevel Provider: Pamela Rea Discharge Problem: Aortic dissection, Pneumonia Patient Disposition: Admitted As Inpatient Condition: Critical Forms Stand Alone Forms: My [facility] [employer] Prescriptions Prescriptions: No Action simvastatin 20 mg tablet 20 mg PO HS Qty: 90 3RF metoprolol succinate 25 mg tablet extended release 24 hr 25 mg PO QAM Qty: 90 3RF pantoprazole 20 mg tablet,delayed release (DR/EC) 20 mg PO DAILYBB Qty: 90 1RF levothyroxine 25 mcg tablet 25 mcg PO DAILYBB Qty: 90 3RF Patient Comments: QAM coenzyme Q10 [Co Q-10] 50 mg Capsule 50 mg PO QAM aspirin [Adult Low Dose Aspirin] 81 mg tablet,delayed release (DR/EC) 81 mg PO QAM krill oil [id number] mg Capsule 1 cap PO QAM Referrals Referrals: Jose Enrique Vincent MD [Primary Care Provider] -
[2025-07-08 02:10] LABS: Hematocrit (blood only) 43.0 % (42.0-52.0); Hemoglobin 14.6 g/dl (14.0-18.0); Immature Granulocytes # (auto) 0.09 K/uL (0.01-0.20); Immature Granulocytes % (auto) 0.5 %; Mean Corpuscular Hemoglobin 31.3 pg (25.0-34.0); Mean Corpuscular Volume 92.3 fL (80.0-100.0); Platelet Count 185 K/uL (130-400); RDW Standard Deviation 44.6 fL (36.4-46.3); Red Blood Count 4.66 M/uL (4.70-6.10); White Blood Count 17.36 K/ul (4.8-10.8)
[2025-07-08 02:33] LABS: Alanine Aminotransferase 36.0 U/L (7-52); Albumin Level 4.0 gm/dl (3.4-5.0); Alkaline Phosphatase 58.0 U/L (34-104); Anion Gap 8.0 (3-11); Bilirubin,Total 0.7 mg/dl (0.2-1.0); Blood Urea Nitrogen 21.0 mg/dl (6-23); Calcium 9.1 mg/dl (8.6-10.3); Carbon Dioxide 25.0 mmol/L (21-32); Chloride 108.0 mmol/L (98-107); Creatinine Clr Calc Pharmacy 61.7 ml/min; Glucose 128.0 mg/dl (70-99(Fasting)); Magnesium 2.0 mg/dl (1.7-2.4); Potassium 4.4 mmol/L (3.5-5.1); Sodium 141.0 mmol/L (136-145); Total Protein 6.6 gm/dl (6.0-8.3)
--- NOTE | 2025-07-08 03:14 | XRay Report ---
EXAM: XR chest 1V portable CLINICAL HISTORY: Sepsis TECHNIQUE: An X-ray image of the chest was obtained in AP projection. 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 FINDINGS: Parenchymal opacities/fullness is noted involving the right perihilar region. Cardiomegaly. Unfolding of the aorta. The rest of both lungs are clear. The cardiomediastinal silhouette is within normal limits. No acute osseous abnormality. IMPRESSION: Parenchymal opacities/fullness is noted involving the right perihilar region?stable. Cardiomegaly?stable. Unfolding of the aorta?stable. Electronically signed by Boris Oliveira 07-08-2025 03:14 AM
[2025-07-08] MEDS: OPTIRAY 320 125ml IV ONE ×2 (03:39→03:45)
--- NOTE | 2025-07-08 03:43 | Ultrasound Report ---
EXAM: US venous doppler LE RT CLINICAL HISTORY: Edema. TECHNIQUE: Ultrasound examination of the right lower extremity veins was performed in real time and with duplex imaging. One or more of the following was performed: spectral analysis, resistive index, waveform analysis, and pulsed Doppler. The examination was limited due to right lower extremity edema. COMPARISON: 04/06/2023 Bilateral lower extremity venous Doppler. FINDINGS: Normal phasic, non-pulsatile, and spontaneous flow is noted in the right GSV, common femoral, superficial femoral, popliteal, anterior tibial, posterior tibial, and peroneal veins. The visualized veins of the right lower extremity demonstrate normal compressibility. No sonographic evidence of acute deep vein thrombosis (DVT) is detected in the visualized veins of the lower extremity. Compression and Augmentation: All evaluated veins compress fully with applied transducer pressure. Augmentation of venous flow is noted with distal compression. Additional Findings: No evidence of intraluminal thrombus. Edema of the right calf is noted, which limits visualization of the calf veins. IMPRESSION: 1. No sonographic evidence of acute DVT is detected at the time of examination. 2. Edema of the right calf is noted, limiting visualization of the calf veins. This is an interval new finding. 3. Otherwise, there are no interval changes concerning the right lower extremity compared to the prior study. Disclaimer: DVT could be missed early in the disease when clot burden is minimal. For patients with moderate and high pretest probability of DVT and negative ultrasound, the [employer] clinical guidelines recommend testing with a D-dimer assay or repeat ultrasound in 5-7 days. If symptoms worsen, the Society of Radiologists in Ultrasound recommends repeating ultrasound even earlier. Electronically signed by Tanmay Marie 07-08-2025 03:43 AM
[2025-07-08] MEDS: cefTRIAXone SODIUM 2,000 MG/50 ML BAG IV STA (03:49)
[2025-07-08] MEDS: FUROSEMIDE 40 MG/4 ML VIAL IV ONE (03:49)
[2025-07-08] MEDS: SODIUM CHLORIDE 0.9% 500 ML IV ONE (03:49)
--- NOTE | 2025-07-08 04:22 | CT Scan Report ---
EXAM: CT angio chest PE protocol CLINICAL HISTORY: PE TECHNIQUE: Contiguous axial images were obtained from the neck base through the upper abdomen following intravenous administration of iodinated contrast material. Angiographic images were processed, and 3D MIP images were acquired for interpretation. If IV contrast material had not been administered, the likelihood of detecting abnormalities relevant to the patient's condition would have been substantially decreased. Coronal and sagittal 3D MIPs were likewise performed and indicated to increase the sensitivity of detecting diffuse clinically relevant pathology. CT scan was performed according to ALARA (as low as reasonably achievable). COMPARISON: 12:04:34 SUPPORT SERVICES SPECIALIST . FINDINGS: Aneurysmal dilatation of the ascending aorta with diameter measuring up to 46 mm. Evidence of flap is seen noted involving the ascending, arch, and visualized descending thoracic aorta; this represent aortic dissection. This flap is seen extending to involve right brachiocephalic artery artery. The visualised extent of right brachiocephaic artery appears thrombosed. New finding. The false lumen shows poor contrast enhancement as compared to the true lumen. Diffuse ground-glass haze with subpleural atelectasis is noted involving the dependent portions of both lower lobes and lingula, suggesting the possibility of being due to insufficient inspiration. Small pulmonary cysts seen. New calcified granuloma in left lower lobe. Adequate contrast bolus without evidence of pulmonary embolism. The central airways are patent. No pleural effusion. There are coronary artery and aortic atherosclerotic calcifications. No pericardial effusion is identified. The thyroid is unremarkable. Small mediastinal lymphnodes are seen-new. No suspicious lytic or sclerotic osseous lesions are identified. IMPRESSION: Aneurysmal dilatation of ascending aorta with diameter measuring up to 46 mm?stable. Evidence of flap is noted involving the ascending, arch, and visualized descending thoracic aorta; this represents aortic dissection.?new finding. False lumen is thrombosed. This flap is seen extending to involve right brachiocephalic artery artery. The visualised extent of right brachiocephaic artery appears thrombosed. New finding. Diffuse ground-glass haze with subpleural atelectasis is noted involving dependent portions of both lower lobes and lingula, suggesting possibility of being due to insufficient inspiration?increased. Previous pleural effusion is resolved. Small mediastinal lymphnodes are seen-new. Electronically signed by Boris Oliveira 07-08-2025 04:21 AM
--- NOTE | 2025-07-08 04:32 | CT Scan Report ---
EXAM: CT angio chest w con CLINICAL HISTORY: r/o dissection TECHNIQUE: Contiguous axial images were obtained from the neck base through the upper abdomen following intravenous administration of contrast material. If IV contrast material had not been administered, the likelihood of detecting abnormalities relevant to the patient's condition would have been substantially decreased. In addition, sagittal and coronal reconstructions were performed. CT scan was performed according to ALARA (as low as reasonably achievable). COMPARISON: 07/08/2025 02:40:00 STUDY ABROAD ADVISOR. FINDINGS: Aneurysmal dilatation of the ascending aorta with a diameter measuring up to 46 mm. Evidence of a hypodense septum is noted involving the ascending aorta, arch, and visualized descending thoracic aorta, which may represent aortic dissection. The false lumen shows poor contrast enhancement compared to the true lumen. Dissection extends into the right brachiocephalic artery. The true lumen shows eccentric mural thrombosis, which causes significant stenosis. No flow is detected in the visualized proximal right common carotid artery, which could be occlusion. Diffuse ground-glass haze with subpleural atelectasis is noted involving the dependent portion of both lower lobes and lingula, suggesting the possibility of changes due to insufficient inspiration. No pulmonary nodules are seen. The central airways are patent. There are no pleural effusions. No pneumothorax is seen. Few mediastinal and axillary lymphnodes notes. The visualized thyroid is unremarkable. No pericardial effusion is identified. Imaged portions of the upper abdomen are unremarkable. No aggressive-appearing osseous lesions are identified. IMPRESSION: 1. Aneurysmal dilatation of the ascending aorta with a diameter measuring up to 46 mm. Stable. 2. Evidence of a hypodense septum is noted involving the ascending aorta, arch, and visualized descending thoracic aorta, which may represent aortic dissection. Stable. 3. The false lumen shows poor contrast enhancement compared to the true lumen. 4. Dissection extends into the right brachiocephalic artery. The true lumen shows eccentric mural thrombosis, which causes significant stenosis. No flow is detected in the visualized proximal right common carotid artery, which could be occlusion. 5. Diffuse ground-glass haze with subpleural atelectasis is noted involving the dependent portion of both lower lobes and lingula, suggesting the possibility of changes due to insufficient inspiration. Stable. Electronically signed by Boris Oliveira 07-08-2025 04:32 AM
--- NOTE | 2025-07-08 04:37 | CT Scan Report ---
EXAM: CT angio abdomen pelvis w con CLINICAL HISTORY: r/o dissection TECHNIQUE: Contrast-enhanced thin-slice CT angiography scan of the abdominal aorta was performed with intravenous contrast. Angiographic images were processed, and 3D MIP images were acquired for interpretation. Contiguous axial images were obtained. Reformatted coronal and sagittal images were also reviewed. If IV contrast material had not been administered, the likelihood of detecting abnormalities relevant to the patient's condition would have been substantially decreased. CT scan was performed according to ALARA (as low as reasonably achievable). COMPARISON: 09:40:39 FAMILY MEDICINE PHYSICIAN ASSISTANT . FINDINGS: Evidence of a hypodense septum is noted involving the visualized lower thoracic aorta and abdominal aorta, which is extending into the proximal part of the left common iliac artery and the entire length of the right external common iliac and right external iliac artery up to the bifurcation, suggestive of aortic dissection. The left renal artery, superior mesenteric artery, and celiac artery are arising from the true lumen. No thrombosis is identified. The right renal artery is arising from the false lumen. No thrombosis is noted. The false lumen is poorly opacified compared to the true lumen. An enlarged prostate is noted, measuring approximately 62 x 65 mm. The bladder shows diffuse wall thickening with subtle perivesical fat stranding, suggesting the possibility of cystitis. Urine analysis correlation is suggested. Solid abdominal organs, including the liver, spleen, pancreas, and bilateral kidneys, reveal no significant abnormality. Bilateral renal cysts. Bowel loops are grossly unremarkable. No evidence of ascites is present. IMPRESSION: 1. Evidence of a hypodense septum is noted involving the visualized lower thoracic aorta and abdominal aorta, which is extending into the proximal part of the left common iliac artery and the entire length of the right external common iliac and right external iliac artery up to the bifurcation, suggestive of aortic dissection. New finding. 2. The left renal artery, superior mesenteric artery, and celiac artery are arising from the true lumen. No thrombosis. 3. The right renal artery is arising from the false lumen. New finding. 4. The false lumen is poorly opacified compared to the true lumen. 5. Cystitis changes. 6. Enlarged prostate. Electronically signed by Boris Oliveira 07-08-2025 04:37 AM
--- NOTE | 2025-07-08 04:52 | History & Physical Report ---
Date of Service July 08, 2025 Assessment & Plan (1) Aortic dissection: (2) Hypothyroidism: (3) Hypertension: (4) CAD (coronary artery disease): (5) Venous insufficiency of both lower extremities: (6) Cellulitis of left leg: Plan 89 yo male PMHx ascending aortic dilation, CAD, HTN, venous insufficiency, L renal mass, BPH w/ LUTS, hypothyroidism, and GERD admitted with acute on chronic LLE swelling associated with SOB and chest pain found to have extensive, inoperable aortic dissection. #Aortic Dissection - ONBOARDING SPECIALIST status Extensive dissection from root extending cephalad through R brachiocephalic artery, caudad through the iliac arteries Discussed with pt and inoperable and terminal nature of diseased vasculature BP relatively hypotensive at time of admission - defer ongoing BP control in setting of ONBOARDING SPECIALIST status Admit to medical with ONBOARDING SPECIALIST status - ONBOARDING SPECIALIST order set placed Pain control with Tylenol, morphine Agitation control with Ativan and Haldol Nausea control with Zofran EOL secretion control with glycopyrrolate, hyoscyamine, atropine Liberalize diet Encourage visitation with family/friends Pending stability, patient may want to return home with home hospice - will need to discuss further and arrange with case management if appropriate #Infectious Disease Likely degree of cellulitis of LLE 2/2 chronic stasis vs vascular changes as a result of dissection Possible b/l LL pneumonia vs atelectasis Rec'd dose of ceftriaxone in ER Defer further antibiotics at this time pending clinical course and ultimate dispo plan #CAD/HTN Pt did have transient episode of ventricular tachycardia while in transit from CT back to ER Continue metoprolol for now - may offer some degree comfort Consider discontinuing based on vital signs #Hypothyroidism Continue Synthroid #GERD Continue Protonix FENGI: regular diet Code status: DNR/DNI, ONBOARDING SPECIALIST DVT prophylaxis: defer Disposition: medical/ONBOARDING SPECIALIST, pending clinical course and pt/family decision may return home w/home hospice vs placement if protracted ONBOARDING SPECIALIST period History of Present Illness Primary Care Provider: Jose Enrique Vincent MD 89 yo male PMHx ascending aortic dilation, CAD, HTN, venous insufficiency, L renal mass, BPH w/ LUTS, hypothyroidism, and GERD admitted with acute on chronic LLE swelling associated with SOB and chest pain found to have extensive, inoperable aortic dissection. Over the last few days he has had increasing LLE swelling associated with rednes s. He decided to come to the hospital because the pain in the LLE reached a level at which he was unable to sleep. En route to the hospital he developed dull central chest pain. At the time of admission he continues to persistent chest pain and LLE pain. Denies radiation of the pain, diaphoresis, abdominal pain. ED Course: Labs reveal leukocytosis and elevated lactate, otherwise unremarkable CT angio chest and abdomen: extensive aortic dissection from the aortic root extending caudad through the iliac vessels and cephalad through the R brachiocephalic artery with likely thrombosis of this vessel Chest images also suggestive of b/l atelectasis vs pneumonia in the lower lobes ED provider discusses with [facility] - dissection is non operative Per extensive discussion with patient and at bedside they prefer admission with comfort measures only and will decide, pending stability, if they would like to go home with home hospice Allergies Allergy/AdvReac Type Severity Reaction Status Date / Time neomycin Allergy Mild RASH Verified 07/08/25 02:19 polymyxin B Allergy Mild RASH Verified 07/08/25 02:19 Home Medications Medication Instructions Recorded Confirmed Type aspirin 81 mg tablet,delayed 81 mg PO QAM 03/29/19 07/08/25 History release (Adult Low Dose Aspirin) coenzyme Q10 50 mg capsule (Co 50 mg PO QAM 03/29/19 07/08/25 History Q-10) simvastatin 20 mg tablet 20 mg PO HS #90 tabs 10/09/24 07/08/25 Rx metoprolol succinate 25 mg 25 mg PO QAM #90 tabs 11/28/24 07/08/25 Rx tablet,extended release 24 hr pantoprazole 20 mg tablet,delayed 20 mg PO DAILYBB #90 tabs 04/23/25 07/08/25 Rx release levothyroxine 25 mcg tablet 25 mcg PO DAILYBB #90 tabs 05/21/25 07/08/25 Rx krill 500 mg-omega-3 150 mg-dha 45 1 cap PO QAM 07/08/25 07/08/25 History mg-epa 75 [id number] capsule (krill oil) Past Med/Surg History Problem List (Updated 07/08/25 @ 05:19 by Pablo Garcia DO) Cellulitis of left leg Pneumonia (Acute) Aortic dissection (Acute) Ascending aorta dilatation 4.7cm February 2020 Bilateral hearing loss due to cerumen impaction Hypothyroidism Renal cyst Raynauds disease Venous insufficiency of both lower extremities Abnormal CT scan, chest Trigger finger, right middle finger History of squamous cell carcinoma in situ of skin (Acute) Lipoma (Acute) Sebaceous cyst (Acute) Pulmonary nodule Vasomotor rhinitis (Acute) Telangiectasia (Acute) Seborrheic keratosis (Acute) Renal mass, left (Acute) Prostatitis (Acute) Incontinence (Acute) Hemangioma of skin (Acute) Hearing loss (Acute) BL GOOD Glaucoma (Acute) bilt Dilated aortic root (Acute) Actinic keratosis (Acute) BPH NOS w ur obs/LUTS Hypertension CAD (coronary artery disease) Presumed coronary artery disease-stress echo 2010 with possible inferior ischemia; no cath History of adenomatous polyp of colon Medical History History of 2019 novel coronavirus disease (COVID-19) 11/2019; cough, fever, chills; resolved Syncope Episode of unresponsiveness CAD in [place] artery Renal lesion CT 12/2020 [place]; Dr. Adkins monitoring Abnormal chest CT 02/2020 [place] - aneurysmal dilatation of the ascending thoracic aorta which measures up to 4.7 cm Pulmonary nodule follows with [place] [facility] Poor historian History of squamous cell carcinoma Hyperlipidemia Surgical History History of cataract surgery RT History of squamous cell carcinoma excision History of bladder surgery "to stretch bladder" History of tooth extraction History of transurethral resection of prostate History of foot surgery right foot great toe H/O right inguinal hernia repair Family History Sister Cancer Breast cancer Mother Cardiac disorder Family history of reaction to anesthesia per pt his mother developed alzheimer's from an anesthesia drug Alzheimer disease Father Cardiac disorder Denies family history of Ovarian cancer Prostate cancer Myocardial infarction Colorectal cancer Social History Smoking Status: Never smoker Second Hand Exposure: Yes (IN THE PAST); Do You Dip or Chew Tobacco: No; Hx Alcohol Use: No Hx Substance Use: No Preferred Language: Indonesian Communication Ability: Effective Visual Impairment: Limited Hearing Ability: Use of Hearing Aid Family Dinner Service Specialist Required: No Beliefs That Will Affect Care: Episcopal marital status: Current Living Situation: Spouse Current Living Situation Comment: Lives w/ spouse at home current occupational status: retired current occupation: [employer] Feels Safe at Home: Yes Safety Concerns: Feels Safe At This Time Childhood Exposure to Second-Hand Smoke: No Diet: regular caffeine: Yes during the past year weight has: remained stable Dental Care, Regularly: Yes Physical Activity Frequency: Daily Physical Activity Frequency Comment: Patient rides bicycle about 10 blocks every day. Seatbelt Use: always Sunscreen Use: Yes Assistive Devices: None Review of Systems Review of Systems: reviewed, per HPI Physical Exam Physical Exam: Constitutional: ill-appearing, ashen, no acute distress HEENT: NCAT, no conjunctival injection CV: extremities well-perfused, no LE edema Resp: no increased work of breathing GI: nondistended MSK: no gross deformities appreciated Skin: swelling of LLE, erythema overlying anterior portion Neuro: alert, oriented, no focal neurologic deficit appreciated Results & Data Results & Data Vital Signs (Past 12 Hours) Vital Signs Temp Pulse Pulse Resp BP BP Pulse Ox 07/08/25 03:50 94 H 20 99/67 L 07/08/25 03:46 140 H 07/08/25 03:00 88 18 118/58 L 97 07/08/25 02:33 65 07/08/25 02:21 86 18 98/45 L 97 07/08/25 01:51 64 18 94 07/08/25 01:51 36.4 C L 64 18 95/50 L 98 O2 Del Method 07/08/25 03:50 Room Air 07/08/25 03:46 07/08/25 03:00 Room Air 07/08/25 02:33 07/08/25 02:21 Room Air 07/08/25 01:51 Room Air 07/08/25 01:51 Room Air Code Status & VTE Plan VTE Prophylaxis Plan VTE Prophylaxis will be ordered: No Reason for no VTE drug order: Treatment not indicated Supervising Physician Co-Signing Physician Notes Attending addendum: I have physically seen this patient, have supervised the medical residents activities, and agree with the H&P unless as otherwise noted. Assessment and Plan: The patient is an 89-year-old male with past medical history including ascending aortic dilatation, CAD, hypertension, venous insufficiency, left renal mass, BPH with LUTS, hypothyroidism, and GERD. Who presents to the emergency department with acute on chronic left lower extremity swelling and pain, along with chest pain shortness of breath. CT angiography is negative for PE, but did show extensive inoperable aortic dissection. Aortic dissection- Extensive and inoperable as per review from tertiary center As discussed with patient and , due to inoperable nature of this dissection and care modality, patient will be made ONBOARDING SPECIALIST. ONBOARDING SPECIALIST status- Admit to medical service with ONBOARDING SPECIALIST status- ONBOARDING SPECIALIST orders have placed Pain control with Tylenol and morphine Agitation control with Ativan and Haldol Nausea controlled with Zofran Secretions controlled with glycopyrrolate, hyoscyamine and atropine as needed Diet as noted With consult home hospice, had discussion with family as to whether patient will end-of-life care at home. Placed on any additional IV antibiotics to address cellulitis/possible pneumonia versus atelectasis assessment CAD/hypertension- Episode of nonsustained V. tach while in CT return to ER Continue home metoprolol Hypothyroidism- Continue levothyroxine/Synthroid GERD- Continue pantoprazole remaining orders and notations as noted Resident Activity Tracking Resident Involvement: Resident Care Provided Care Provided: Adult Hospital Medicine
[2025-07-08] MEDS: STAT IV Infusion **Titration per Protocol STA (05:07)
[2025-07-08] MEDS: MoRPHine SULFATE 4 MG/ML 1 ML CARP\\VIAL IV STA (06:32)
[2025-07-08] MEDS ORDERED: HALOPERIDOL ORAL SOLN 2 MG/ML PO PRN (06:55)
[2025-07-08] MEDS ORDERED: ACETAMINOPHEN 500 MG TAB PO PRN (06:55)
[2025-07-08] MEDS ORDERED: LORazepam Inj 0.5 MG in SYRINGE 0.25 ML IV PRN (06:55)
[2025-07-08] MEDS ORDERED: ONDANSETRON INJ 2 MG/ML 2 ML VIAL IV PRN ×2 (06:55)
[2025-07-08] MEDS ORDERED: HYOSCYAMINE SULFATE 0.125 MG TAB SL PRN (06:55)
[2025-07-08] MEDS ORDERED: MELATONIN 3 MG TAB PO PRN (06:55)
[2025-07-08] MEDS ORDERED: ATROPINE SULFATE 1% OP SOLN 5 ML BTL SL PRN (06:55)
[2025-07-08] MEDS ORDERED: POLYETHYLENE (MIRALAX) 17 GM PACK PO PRN (06:55)
[2025-07-08] MEDS ORDERED: MAGNESIUM HYDROXIDE SUSP 30 ML UDC PO PRN (06:55)
[2025-07-08] MEDS ORDERED: ALUMINUM/MAGNESIUM SUSP 30 ML UDC PO PRN (06:55)
[2025-07-08] MEDS ORDERED: GLYCOPYRROLATE 0.2 MG/ML VIAL IV PRN (06:55)
[2025-07-08] MEDS: MoRPHine SULFATE 4 MG/ML 1 ML CARP\\VIAL IV PRN (09:13)
[2025-07-08] MEDS ORDERED: LORazepam 1 MG TAB PO PRN (10:32)
[2025-07-08] MEDS ORDERED: ONDANSETRON 4 MG OD TAB SL PRN (10:32)
[2025-07-08] MEDS: METOPROLOL SUCC 25MG EXT REL TAB PO SCH (10:37)
[2025-07-08] MEDS: MoRPHine SULFATE 10 MG/0.5 ML UDP PO PRN (11:14)
[2025-07-08] MEDS: LEVOTHYROXINE SODIUM 25 MCG TABLET PO SCH (11:14)
--- NOTE | 2025-07-08 11:36 | Hospitalist Progress Note ---
Date of Service July 08, 2025 Assessment & Plan (1) Aortic dissection: (2) Hypothyroidism: (3) Hypertension: (4) CAD (coronary artery disease): (5) Venous insufficiency of both lower extremities: (6) Cellulitis of left leg: Plan 89 yo male PMHx ascending aortic dilation, CAD, HTN, venous insufficiency, L renal mass, BPH w/ LUTS, hypothyroidism, and GERD admitted with acute on chronic LLE swelling associated with SOB and chest pain found to have extensive, inoperable aortic dissection on 07/08/2025 #Aortic Dissection - CUSTOMER SERVICES COORDINATOR status Chest/Abdomen CTA w/ extensive dissection from root extending cephalad through R brachiocephalic artery, caudad through iliac arteries. Per [place] patient not a candidate for surgery. CUSTOMER SERVICES COORDINATOR measures in place - Roxanol 10ml q 1h, Ativan 1mg q2h, Haldol 0.5mg q4h Nausea/vomiting: Zofran Discussed w/ CM & family 07/08 --> referral to [facility] in place. #CAD - can continue metoprolol w/ hold parameters for now. May provide degree of comfort. #Hypothyroidism Continue Synthroid #GERD Continue Protonix Code status: DNR/DNI, CUSTOMER SERVICES COORDINATOR DVT prophylaxis: defer given CUSTOMER SERVICES COORDINATOR status Admission and Anticipated Discharge Date Admission Date: July 08, 2025 Supervising Physician Co-Signing Physician Notes The patient was not seen by me. The chart was reviewed. Case discussed with EVENS Francois. Agree with assessment and plan Subjective Randy was seen & examined this morning with his and daughter at bedside. Randy reports he has some chest pain but denies SOB. He reports he feels tired. Denies any leg pain at time of encounter. Physical Exam Physical Exam: General: NAD, comfortable. Resp: normal respiratory effort, lungs clear to auscultation CV: RRR, no murmur Extremities: LE edema present. Skin: intact, no lesions noted Results & Data Results & Data Vital Signs (Past 12 Hours) Vital Signs Temp Pulse Pulse Pulse Resp BP BP 07/08/25 07:44 36.8 C 68 18 84/63 L 07/08/25 06:55 07/08/25 06:00 74 18 117/74 07/08/25 05:00 63 18 110/65 07/08/25 04:45 73 18 102/55 L 07/08/25 04:30 73 18 103/59 L 07/08/25 04:15 85 18 99/57 L 07/08/25 04:00 76 18 107/50 L 07/08/25 03:50 94 H 20 99/67 L 07/08/25 03:46 140 H 07/08/25 03:00 88 18 118/58 L 07/08/25 02:33 65 07/08/25 02:21 86 18 98/45 L 07/08/25 01:51 64 18 07/08/25 01:51 36.4 C L 64 18 95/50 L Pulse Ox O2 Del Method O2 Flow Rate 07/08/25 07:44 97 Nasal Cannula 2 07/08/25 06:55 Nasal Cannula 07/08/25 06:00 95 Nasal Cannula 2 07/08/25 05:00 96 Nasal Cannula 2 07/08/25 04:45 97 Nasal Cannula 2 07/08/25 04:30 94 Nasal Cannula 2 07/08/25 04:15 95 Room Air 07/08/25 04:00 94 Room Air 07/08/25 03:50 Room Air 07/08/25 03:46 07/08/25 03:00 97 Room Air 07/08/25 02:33 07/08/25 02:21 97 Room Air 07/08/25 01:51 94 Room Air 07/08/25 01:51 98 Room Air PG Care Time/CCT Total # of Minutes Spent Total Time Spent with Patient: Total time spent is greater than 50% in coordination of care (as documented) at patient's floor/unit and/or counseling patient: Coding Level of Care Code None Diagnoses Aortic dissection I71.00 Hypothyroidism E03.9 Hypertension I10 CAD (coronary artery disease) I25.10 Venous insufficiency of both lower extremities I87.2 Cellulitis of left leg L03.116
--- NOTE | 2025-07-09 06:19 | Billing Data ---
Date of Service July 09, 2025 Coding Level of Care Code 76668 INT INP/OBS CARE
[2025-07-09 07:46] VITALS: RESP 18
[2025-07-09] MEDS: DOCUSATE SODIUM 100 MG CAP PO SCH (10:37)
--- NOTE | 2025-07-09 10:50 | Hospitalist Progress Note ---
Date of Service July 09, 2025 Assessment & Plan (1) Aortic dissection: (2) Hypothyroidism: (3) Hypertension: (4) CAD (coronary artery disease): (5) Venous insufficiency of both lower extremities: (6) Cellulitis of left leg: Plan 89 yo male PMHx ascending aortic dilation, CAD, HTN, venous insufficiency, L renal mass, BPH w/ LUTS, hypothyroidism, and GERD admitted with acute on chronic LLE swelling associated with SOB and chest pain found to have extensive, inoperable aortic dissection. 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 Per [place] patient not a candidate for surgery. CASHIER ASSISTANT measures in place - Roxanol 10ml q 1h, Ativan 1mg q2h, Haldol 0.5mg q4h Nausea/vomiting: Zofran Discussed w/ CM & family 07/08 --> referral to [facility] in place. #CAD - can continue metoprolol w/ hold parameters for now. May provide degree of comfort. #Hypothyroidism- Continue Synthroid #GERD- Continue Protonix Code status: DNR/DNI, CASHIER ASSISTANT DVT prophylaxis: defer given CASHIER ASSISTANT status Updated family @ beside 07/09. Discussed w/ CM 07/09. --> [facility] does have a bed available, or plans continuing to develop Admission and Anticipated Discharge Date Admission Date: July 08, 2025 Lacie Padilla was seen & examined this morning. He reports he is feeling "lazy" today. He felt he slept well overnight although per documentation he was having some periods of confusion. He reported no pain at time of encounter, was asking to be able to sit in a recliner. Physical Exam Physical Exam: General: NAD, VS: BP 90/60; P99; R18; T36.8C Resp: normal respiratory effort, lungs clear to auscultation CV: RRR, no murmur Extremities: minimal LE edema, wei stockings in place. Neuro: A&O x3, Skin: intact, no lesions noted Results & Data Results & Data Vital Signs (Past 12 Hours) Vital Signs Temp Pulse Resp BP BP Pulse Ox O2 Del Method 07/09/25 07:46 36.8 C 99 H 18 90/60 L 90 Room Air 07/09/25 05:33 36.5 C 87 12 125/69 100 Room Air PG Care Time/CCT Total # of Minutes Spent Total Time Spent with Patient: Total time spent is greater than 50% in coordination of care (as documented) at patient's floor/unit and/or counseling patient: Coding Level of Care Code 51685 SUB INP/OBS CARE 2/35MIN Diagnoses Aortic dissection I71.00 Hypothyroidism E03.9 Hypertension I10 CAD (coronary artery disease) I25.10 Venous insufficiency of both lower extremities I87.2 Cellulitis of left leg L03.116
[2025-07-09 14:58] VITALS: BP 154/76; PULSE 107; TEMP 97.5; O2SAT 92
--- NOTE | 2025-07-09 18:59 | Death Pronouncement Note ---
Date of Service July 09, 2025 Pronouncement Note Admission Date July 08, 2025 Date and Time of Date of : 07/09/25 Time of : 18:53 Summary I was alerted by nursing that the patient ceased to breath. When I entered room 356 I encountered the patient in the following state: Constitutional: laying motionless in hospital bed HEENT: pupils fixed and dilated CV: no appreciable heart sounds Resp: no chest rise, no breath sounds appreciated Skin: pale Neuro: unresponsive to verbal stimuli and sternal rub Additional Data Confirmation of : no pulse, no respirations, no heart sounds and pupils fixed and dilated Pronouncement Performed By: Resident Physician Family: contacted (by nursing) Attending physician: Dewey Rangel MD Was code activated?: No Supervising Physician Co-Signing Physician Notes The patient was not seen by me. The chart was reviewed. More than likely, the aortic dissection ruptured causing the patient's demise. Resident Activity Tracking Resident Involvement: Resident Care Provided Care Provided: Adult Hospital Medicine
--- NOTE | 2025-07-09 19:06 | Discharge Summary ---
Discharge Summary Date of Service July 09, 2025 Principal Dx & Hospital Course #1 = Principal Diagnosis (1) Aortic dissection: (2) Hypothyroidism: (3) Hypertension: (4) CAD (coronary artery disease): (5) Venous insufficiency of both lower extremities: (6) Cellulitis of left leg: Plan 89 yo male PMHx ascending aortic dilation, CAD, HTN, venous insufficiency, L renal mass, BPH w/ LUTS, hypothyroidism, and GERD admitted on 07/08 with acute on chronic LLE swelling associated with SOB and chest pain. 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 Per [place] patient was not a candidate for surgery. Patient made SKIDDER DRIVER status 07/08. pronouncement by Dr. Garcia on 07/09/2025 at 1853. Primary cause of is acute aortic dissection with a secondary cause having a hx of CAD. Admission HPI Per Admitting Provider 89 yo male PMHx ascending aortic dilation, CAD, HTN, venous insufficiency, L renal mass, BPH w/ LUTS, hypothyroidism, and GERD admitted with acute on chronic LLE swelling associated with SOB and chest pain found to have extensive, inoperable aortic dissection. Over the last few days he has had increasing LLE swelling associated with redness. He decided to come to the hospital because the pain in the LLE reached a level at which he was unable to sleep. En route to the hospital he developed dull central chest pain. At the time of admission he continues to persistent chest pain and LLE pain. Denies radiation of the pain, diaphoresis, abdominal pain. ED Course: Labs reveal leukocytosis and elevated lactate, otherwise unremarkable CT angio chest and abdomen: extensive aortic dissection from the aortic root extending caudad through the iliac vessels and cephalad through the R brachiocephalic artery with likely thrombosis of this vessel Chest images also suggestive of b/l atelectasis vs pneumonia in the lower lobes ED provider discusses with [facility] - dissection is non operative Per extensive discussion with patient and at bedside they prefer admission with comfort measures only and will decide, pending stability, if they would like to go home with home hospice Discharge Plan Discharge Items Patient Disposition: Other Date/Time: 07/09/25 18:53 Hospital Stay Data Consultations 07/08/25 04:18 ED Decision to Admit Stat Diagnostic Imagining Performed 07/08/25 01:50 US venous doppler LE RT Stat 07/08/25 03:06 CT angio chest PE protocol Stat 07/08/25 03:29 CT angio abdomen pelvis w con Stat CT angio chest w con Stat Supervising Physician Co-Signing Physician Notes The patient was not seen by me. The chart was reviewed. Total Time Total Time Spent Total Time Spent (In Minutes): 30 Total Time Includes: Communication With Other Providers Coding Level of Care Code 23200 IN/OBS DISCH 30 MIN/LESS Diagnoses Aortic dissection I71.00 Hypothyroidism E03.9 Hypertension I10 CAD (coronary artery disease) I25.10 Venous insufficiency of both lower extremities I87.2 Cellulitis of left leg L03.116
--- NOTE | 2025-07-11 07:07 | Coding Query ---
To promote full compliance with coding requirements relating to patient care, provider participation is requested in all cases of fingernail former uncertainty. Please assist us with the question(s) below: Coding Question(s): The diagnosis below was documented in the ER and H&P, then subsequently fell off all further documentation. Please indicate if it is still a possible diagnosis or ruled out. Physician's Response(s): EVENS Tenorio patient. Please send this to her PNEUMONIA ( ) Diagnosed ( ) Ruled out ( ) Other (please specify) MTDD
--- NOTE | 2025-07-11 08:02 | Electrocardiogram Report ---
Test Reason : Blood Pressure : */* mmHG Vent. Rate : 132 BPM Atrial Rate : * BPM P-R Int : * ms QRS Dur : 128 ms QT Int : 328 ms P-R-T Axes : * 58 208 degrees QTcB Int : 485 ms Supraventricular tachycardia Non-specific intra-ventricular conduction block Marked ST abnormality, possible anterior subendocardial injury Abnormal ECG When compared with ECG of 08-Jul-2025 01:45, (unconfirmed) Vent. rate has increased by 64 bpm Confirmed by Kurt Estrella ([id number]) on 07/11/2025 8:02:25 AM Referred By: REFERRED SELF Confirmed By: Kurt Estrella
--- NOTE | 2025-07-11 08:02 | Electrocardiogram Report ---
Test Reason : Blood Pressure : */* mmHG Vent. Rate : 68 BPM Atrial Rate : * BPM P-R Int : * ms QRS Dur : 100 ms QT Int : 414 ms P-R-T Axes : * 30 73 degrees QTcB Int : 440 ms Poor data quality, interpretation may be adversely affected Sinus rhythm with occasional Premature ventricular complexes Incomplete right bundle branch block Cannot rule out Anterior infarct , age undetermined Abnormal ECG When compared with ECG of 11-Feb-2025 10:13, ST now depressed in Lateral leads T wave inversion no longer evident in Inferior leads T wave inversion now evident in Lateral leads Confirmed by Kurt Estrella ([id number]) on 07/11/2025 8:01:28 AM Referred By: REFERRED SELF Confirmed By: Kurt Estrella
--- NOTE | 2025-07-11 08:03 | Electrocardiogram Report ---
Test Reason : Blood Pressure : */* mmHG Vent. Rate : 75 BPM Atrial Rate : 75 BPM P-R Int : 186 ms QRS Dur : 112 ms QT Int : 384 ms P-R-T Axes : 65 39 169 degrees QTcB Int : 428 ms Sinus rhythm with Premature atrial complexes Incomplete right bundle branch block Cannot rule out Anterior infarct , age undetermined Abnormal ECG When compared with ECG of 08-Jul-2025 03:43, (unconfirmed) Sinus rhythm has replaced Supraventricular tachycardia Vent. rate has decreased by 57 bpm Confirmed by Kurt Estrella ([id number]) on 07/11/2025 8:02:58 AM Referred By: REFERRED SELF Confirmed By: Kurt Estrella
--- NOTE | 2025-07-14 06:28 | Coding Query ---
To promote full compliance with coding requirements relating to patient care, provider participation is requested in all cases of surgical coder uncertainty. Please assist us with the question(s) below: Coding Question(s): The diagnosis below was documented in the ER and H&P, then subsequently fell off all further documentation. Please indicate if it is still a possible diagnosis or ruled out. Physician's Response(s): EVENS Tenorio patient. Please send this to her PNEUMONIA ( x ) Ruled out MTDD
== END 2025-07-09 20:39 | disposition expired | DRG 300 ==
LOC: SUATTDRO → ED 01:39 → SUATTDRO 04:45 → 3W 04:45